=== PATIENT | female | born 1985 | race Caucasian/White ===

== ENCOUNTER 2017-06-05 22:05 | Emergency (ER) | END 2017-06-05 23:50 | disposition left against medical advice (07) | LOC: ER 22:05 | DX: Z53.21 Procedure and treatment not carried out due to patient leaving prior to being seen by health care provider (principal) ==

== ENCOUNTER 2018-05-04 18:45 | Emergency (ER) | payer OTHER ==
[2018-05-04] MEDS ORDERED: HALOPERIDOL LACTATE INJ 5 MG/1 ML VIAL IV ONE (19:53)
[2018-05-04] MEDS ORDERED: NORMAL SALINE 1000 ML 1,000 ML IV ONE (19:54)
--- NOTE | 2018-05-04 19:58 | ER Document Report ---
ED Cardiac - General Chief Complaint: Palpitations Stated Complaint: RAPID HEARTBEAT Time Seen by Provider: 05/04/18 19:13 Notes: Patient is a 33-year-old male with a past medical history of SVT after 4 total ablations in the past for this issue, currently off any anti-arithmetic agents who presents with complaints of intermittent palpitations over the last several weeks. The patient reports that he feels similar to when he has required an ablation in the past. He does note that he does not currently feel he is in SVT. He also reports that he has had chronic intermittent headaches over the past 3-4 weeks and does currently have a global, throbbing, aching headache. Nothing improves or worsens his headache. States that the headache fluctuates regularly. He denies any associated weakness, numbness, fever or confusion. [facility] and is scheduled to see a prevention specialist ideally within the next 1 week. Nothing is necessary new or different regarding his symptoms that prompted a visit to the emergency department today. TRAVEL OUTSIDE OF THE [place] IN LAST 30 DAYS: No - Related Data Allergies/Adverse Reactions: ciprofloxacin [From Cipro] Allergy (Severe, Verified 01/06/18 13:23) Shortness of Breath gadoteridol [From Prohance] Allergy (Severe, Verified 01/06/18 13:23) Shortness of Breath hyoscyamine sulfate [From Levsin] Allergy (Severe, Verified 01/06/18 13:23) Shortness of Breath Iodinated Contrast- Oral and IV Dye Allergy (Severe, Verified 01/06/18 13:23) metoclopramide HCl [From Reglan] Allergy (Severe, Verified 01/06/18 13:23) Shortness of Breath promethazine HCl [From Phenergan] Allergy (Severe, Verified 01/06/18 13:23) Shortness of Breath morphine Allergy (Verified 01/10/18 02:28) Anaphylaxis Penicillins Allergy (Verified 01/06/18 13:23) piperacillin [From Zosyn] Adverse Reaction (Verified 01/06/18 13:23) tazobactam [From Zosyn] Adverse Reaction (Verified 01/06/18 13:23) Past Medical History - General Information source: Patient - Social History Smoking Status: Never Smoker Frequency of alcohol use: None Drug Abuse: None Lives with: Spouse/Significant other Family History: Arthritis, CAD, CVA, DM, Hyperlipidemia, Hypertension, Malignancy, Thyroid Disfunction - Past Medical History Cardiac Medical History: Reports: Hx Coronary Artery Disease - CARDIAC CATH/ LOOP RECORDER/ ABLATION X 2, Hx Heart Attack - X 3 Pulmonary Medical History: Reports: Hx Pneumonia Neurological Medical History: Reports: Hx Seizures - 2012- COMA FOR ONE WEEK- MEDICATION INDUCED Renal/ Medical History: Reports: Hx Kidney Stones - 23 stones. Denies: Hx Peritoneal Dialysis GI Medical History: Reports: Hx Gastritis, Hx Gastroesophageal Reflux Disease, Hx Hiatal Hernia, Hx Endoscopy Musculoskeletal Medical History: Reports Hx Arthritis, Reports Hx Musculoskeletal Deformity, Reports Hx Musculoskeletal Trauma Skin Medical History: Reports Hx Cellulitis Psychiatric Medical History: Reports: Hx Anxiety, Hx Post Traumatic Stress Disorder Past Surgical History: Reports: Hx Abdominal Surgery - hernia repair, Vladimir Fundoplication, partial esophagectomy, Hx Appendectomy, Hx Cardiac Surgery - 2X ablation, Hx Inguinal Hernia - 2, Hx Orthopedic Surgery - R shoulder, Other - Vladimir's fundoplication with esophagectomy. - Immunizations Immunizations up to date: Yes Hx Diphtheria, Pertussis, Tetanus Vaccination: Yes - 09/17/2015 Hx Pneumococcal Vaccination: 05/27/13 Review of Systems - Review of Systems Notes: Constitutional: Negative for fever. HENT: Negative for sore throat. Eyes: Negative for visual changes. Cardiovascular: Negative for chest pain. Positive for palpitations Respiratory: Negative for shortness of breath. Gastrointestinal: Negative for abdominal pain, vomiting or diarrhea. Genitourinary: Negative for dysuria. Musculoskeletal: Negative for back pain. Skin: Negative for rash. Neurological: Positive for headache 10 point ROS negative except as marked above and in HPI. Physical Exam - Vital signs Vitals: Temp Pulse Resp BP Pulse Ox 98.7 F 110 H 20 145/95 H 100 05/04/18 19:02 05/04/18 19:02 05/04/18 19:02 05/04/18 19:02 05/04/18 19:02 Interpretation: Tachycardic - Resolved at the time of my assessment, heart rate currently 85 Notes: PHYSICAL EXAMINATION: GENERAL: Well-appearing, well-nourished and in no acute distress. HEAD: Atraumatic, normocephalic. EYES: Pupils equal round and reactive to light, extraocular movements intact, sclera anicteric, conjunctiva are normal. ENT: nares patent, oropharynx clear without exudates. Moist mucous membranes. NECK: Normal range of motion, supple without lymphadenopathy LUNGS: Breath sounds clear to auscultation bilaterally and equal. No wheezes rales or rhonchi. HEART: Regular rate and rhythm without murmurs ABDOMEN: Soft, nontender, normoactive bowel sounds. No guarding, no rebound. No masses appreciated. EXTREMITIES: Normal range of motion, no pitting or edema. No cyanosis. NEUROLOGICAL: Face symmetric. Tongue protrudes midline. Extraocular motions intact. Pupils are 2 mm and equally reactive. Normal speech, normal gait. 5 out of 5 strength in both the distal and proximal upper and lower extremities bilaterally. Sensation is grossly intact throughout. Finger to nose testing normal. Pronator drift normal. PSYCH: Normal mood, normal affect. SKIN: Warm, Dry, normal turgor, no rashes or lesions noted. Course - Re-evaluation Re-evalutation: 05/04/18 19:57 Patient presents with palpitations but is in no acute distress. Vitals within normal limits at time of arrival. EKG unremarkable with a normal sinus rhythm. Laboratories are unremarkable. Patient denies any chest pain, shortness of breath, or vomiting. At this time based on exam and history do not suspect a new onset arrhythmia, ACS, acute pulmonary embolus, aortic dissection. Patient has been encouraged to follow through on the cardiology referral placed at the [place]. In regards to the patient's headache: Appears to be most consistent with tension versus migrainous type headache. Headache was not maximal in onset, patient has no focal neurologic deficits, no nuchal rigidity, vital signs within normal limits, no papilledema, and patient is overall well in appearance. Based on clinical history and examination I do not suspect an acute subarachnoid hemorrhage, dural venous sinus thrombosis, acute meningitis, or intercranial mass. Given my low clinical suspicion for any acute life- threatening etiology, I do not feel advanced neuro imaging is indicated at this time. Patient is allergic to metoclopramide and Compazine and therefore haloperidol has been elected to terminate headache 05/04/18 21:15 Labs unremarkable. Patient has resolution of headache. Heart rate continues to be within normal limits currently 81 bpm. Blood pressure 113 and 75. No ectopic rhythm. At this time will discharge with return precautions and follow- up recommendations. Verbal discharge instructions given a the bedside and opportunity for questions given. Medication warnings reviewed. Patient is in agreement with this plan and has verbalized understanding of return precautions and the need for primary care follow-up in the next 24-72 hours. - Vital Signs Vital signs: Temp Pulse Resp BP Pulse Ox 98.7 F 110 H 20 145/95 H 100 05/04/18 19:02 05/04/18 19:02 05/04/18 19:02 05/04/18 19:02 05/04/18 19:02 - Laboratory Result Diagrams: 05/04/18 19:45 Laboratory results interpreted by me: 05/04/18 19:45 Carbon Dioxide 33 H Creatinine 1.47 H Est GFR (Non-Af Amer) 56 L Glucose 111 H - EKG Interpretation by Me Additional EKG results interpreted by me: 05/04/18 21:15 Sinus rhythm, rate 108. Movement on EKG. No ST elevations or depressions. Discharge - Discharge Clinical Impression: Recurrent headache, Palpitations Condition: Good Disposition: HOME, SELF-CARE Additional Instructions: Please follow-up with your primary care doctor or a prevention specialist regarding your palpitations. Your EKG and labs are normal today. Return if you develop chest pain, shortness of breath, pass out, or have any other symptoms that are worrisome to you. You have been seen in the Emergency Department (ED) for a headache. As we have discussed, please follow up with your primary care doctor as soon as possible regarding today's ED visit and your headache symptoms. Call your doctor or return to the ED if you have a worsening headache, sudden and severe headache, confusion, slurred speech, facial droop, weakness or numbness in any arm or leg, extreme fatigue, or other symptoms that concern you. Referrals: MAGNOLIA BIRD PA-C [Primary Care Provider] - Follow up as needed
[2018-05-04 20:14] LABS: ANION GAP 10 (5-19); BLOOD UREA NITROGEN 16 mg/dL (7-20); CALCIUM 9.6 mg/dL (8.4-10.2); CARBON DIOXIDE 33 mmol/L (22-30); CHLORIDE 99 mmol/L (98-107); GLUCOSE 111 mg/dL (75-110); POTASSIUM 3.9 mmol/L (3.6-5.0); SODIUM 142.4 mmol/L (137-145)
[2018-05-04 21:41] VITALS: BP 110/74
--- NOTE | 2018-05-04 22:18 | EKG REPORT ---
SEVERITY:- ABNORMAL ECG - SINUS TACHYCARDIA : Confirmed by: Grace Mendoza 04-May-2018 22:17:16
== END 2018-05-04 21:30 | disposition home or self-care (01) ==
LOC: ER 18:45 → MERGE 18:45 → ER 21:30
DX: R00.2 Palpitations (principal); R51 Headache; I25.10 Atherosclerotic heart disease of native coronary artery without angina pectoris; I25.2 Old myocardial infarction; Z87.442 Personal history of urinary calculi; Z88.3 Allergy status to other anti-infective agents; Z88.6 Allergy status to analgesic agent
CPT/HCPCS: 93005; 99285; 96374; 36415; 80048; 93010; J1630; J7030

== ENCOUNTER 2018-05-06 13:42 | Emergency (ER) | payer OTHER ==
[2018-05-06] MEDS ORDERED: KETOROLAC TROMETHAMINE 60 MG/2 ML SDV IM ONE (14:26)
--- NOTE | 2018-05-06 14:26 | ER Document Report ---
ED Medical Screen (RME) - General Chief Complaint: Jaw Pain Stated Complaint: JAW PAIN Time Seen by Provider: 05/06/18 14:25 TRAVEL OUTSIDE OF THE [place] IN LAST 30 DAYS: No - HPI Notes: Patient is a 33-year-old male that presents to the emergency department for chief complaint of locked jaw. Patient states he is unable to open his jaw. His symptoms occur just before arrival. He has had similar symptoms in the past after taking Reglan. He states he took Prilosec yesterday but has no new medications. ROS: GENERAL: Denies fever of chills ENT: Locked jaw CV: Denies chest pain PHYSICAL EXAMINATION: GENERAL: Well-appearing, well-nourished and in no acute distress. HEAD: Atraumatic, normocephalic. EYES: Pupils equal round extraocular movements intact, conjunctiva are normal. ENT: Nares patent NECK: Normal range of motion LUNGS: No respiratory distress Musculoskeletal: Normal range of motion NEUROLOGICAL: Normal speech, normal gait. PSYCH: Normal mood, normal affect. MDM: Patient seen and examined for rapid initial assessment. Vital signs reviewed. A comprehensive ED assessment and evaluation of the patient, analysis of test results and completion of the medical decision making process will be conducted by additional ED providers. - Related Data Allergies/Adverse Reactions: ciprofloxacin [From Cipro] Allergy (Verified 05/06/18 13:48) metoclopramide [From Reglan] Allergy (Verified 05/06/18 13:48) morphine Allergy (Verified 05/06/18 13:48) omeprazole Allergy (Verified 05/06/18 13:59) promethazine [From Phenergan] Allergy (Verified 05/06/18 13:48) Past Medical History Renal/ Medical History: Denies: Hx Peritoneal Dialysis Physical Exam - Vital signs Vitals: Temp Pulse Resp BP Pulse Ox 97.8 F 86 20 140/91 H 96 05/06/18 13:47 05/06/18 13:47 05/06/18 13:47 05/06/18 13:47 05/06/18 13:47 Course - Vital Signs Vital signs: Temp Pulse Resp BP Pulse Ox 97.8 F 86 20 140/91 H 96 05/06/18 13:47 05/06/18 13:47 05/06/18 13:47 05/06/18 13:47 05/06/18 13:47
[2018-05-06] MEDS ORDERED: DIPHENHYDRAMINE HCL 50 MG/ML VIAL IV ONE ×3 (15:04→17:37)
[2018-05-06] MEDS ORDERED: FENTANYL CITRATE INJ/PF 100 MCG/2 ML AMPUL IV ONE (15:04)
--- NOTE | 2018-05-06 15:04 | ER Document Report ---
ED General - General Mode of Arrival: Ambulatory Information source: Patient TRAVEL OUTSIDE OF THE [place] IN LAST 30 DAYS: No - General Chief Complaint: Jaw Pain Stated Complaint: JAW PAIN Time Seen by Provider: 05/06/18 14:25 Notes: 33 year old male that presents to the emergency department today with complaints of jaw spasm. Patient states he has had this once before when taking Reglan. Patient states he has had no new medications except for taking Prilosec yesterday. Patient does mention that x1.5 days ago he was seen here and was given 3mg of IV Haldol for a headache. Patient has had a similar reaction when taking reglan in the past. Patient's jaw is clenched quite tight and he is biting down hard. Patient states he thinks he may have broken a tooth. (JAZMINE SANTAMARIA) Patient appears to be having a dystonic reaction with spasm of his jaws. He is quite uncomfortable. He was given Benadryl IV and a small dose of fentanyl. The medications promptly allowed his jaw muscles to relax. On further investigation, I learned that he was here with possible SVT type symptoms and chronic off and on headache the night before last and received 3 mg of Haldol IV. He does have a history of similar response to Reglan. Once this was discovered, he was given additional Benadryl and a dose of Cogentin, as he was reporting that it felt like the jaw tightening was returning. (CODI MAYER) - Related Data Allergies/Adverse Reactions: gadoteridol [From Prohance] Allergy (Severe, Verified 01/06/18 13:23) Shortness of Breath hyoscyamine sulfate [From Levsin] Allergy (Severe, Verified 01/06/18 13:23) Shortness of Breath Iodinated Contrast- Oral and IV Dye Allergy (Severe, Verified 01/06/18 13:23) metoclopramide HCl [From Reglan] Allergy (Severe, Verified 01/06/18 13:23) Shortness of Breath promethazine HCl [From Phenergan] Allergy (Severe, Verified 01/06/18 13:23) Shortness of Breath ciprofloxacin [From Cipro] Allergy (Verified 05/06/18 13:48) metoclopramide [From Reglan] Allergy (Verified 05/06/18 13:48) morphine Allergy (Verified 05/06/18 13:48) omeprazole Allergy (Verified 05/06/18 13:59) Penicillins Allergy (Verified 01/06/18 13:23) promethazine [From Phenergan] Allergy (Verified 05/06/18 13:48) piperacillin [From Zosyn] Adverse Reaction (Verified 01/06/18 13:23) tazobactam [From Zosyn] Adverse Reaction (Verified 01/06/18 13:23) Past Medical History - General Information source: Patient, [facility] Records - Social History Smoking Status: Unknown if Ever Smoked Frequency of alcohol use: None Drug Abuse: None Lives with: Family Family History: Reviewed & Not Pertinent Patient has suicidal ideation: No Patient has homicidal ideation: No Review of Systems - Review of Systems Constitutional: No symptoms reported EENT: See HPI, Other - jaw muscle spasm Cardiovascular: No symptoms reported Respiratory: No symptoms reported Gastrointestinal: No symptoms reported Genitourinary: No symptoms reported Male Genitourinary: No symptoms reported Musculoskeletal: No symptoms reported Skin: No symptoms reported Hematologic/Lymphatic: No symptoms reported Neurological/Psychological: No symptoms reported -: Yes All other systems reviewed and negative Physical Exam - Vital signs Vitals: Temp Pulse Resp BP Pulse Ox 97.8 F 86 20 140/91 H 96 05/06/18 13:47 05/06/18 13:47 05/06/18 13:47 05/06/18 13:47 05/06/18 13:47 - Notes Notes: Physical Exam: General: Alert, appears to be in a significant amount of pain. HEENT: Normocephalic. Atraumatic. PERRL. Extraocular movements intact. Oropharynx clear. Jaw clinched shut, biting down. TMJs appears to be properly aligned. Face is contorted. Extremely poor dentition throughout. Left upper lateral incisor fractured. Neck: Supple. Non-tender. Respiratory: No respiratory distress. Clear and equal breath sounds bilaterally. Cardiovascular: Regular rate and rhythm. Abdominal: Normal Inspection. Non-tender. No distension. Normal Bowel Sounds. Back: Non-tender. No deformity or step off. Extremities: Moves all four extremities. Upper extremities: Normal inspection. Normal ROM. Lower extremities: Normal inspection. No edema. Normal ROM. Neurological: Normal cognition. AAOx4. Normal speech. Psychological: Normal affect. Normal Mood. Skin: Warm. Dry. Normal color. (JAZMINE SANTAMARIA) - Vital Signs Vital signs: Temp Pulse Resp BP Pulse Ox 97.8 F 86 20 140/91 H 96 05/06/18 13:47 05/06/18 13:47 05/06/18 13:47 05/06/18 13:47 05/06/18 13:47 Discharge - Discharge Clinical Impression: Dystonic drug reaction Condition: Stable Disposition: HOME, SELF-CARE Additional Instructions: Dystonic Reaction to Medication: Your symptoms were caused by the effects of medication on the "muscle control" areas of the brain. This results in uncontrollable movements and muscle spasms. The symptoms usually start with the mouth, jaw, and tongue, but may involve any area of the body. Anti-nausea medications and psychiatric medications (such as Compazine, Reglan, Haldol) can cause this side effect. The usual treatment is diphenhydramine (Benadryl). Mild cases may require only oral medication. However, intravenous medication is most rapidly effective and is usually necessary for severe reactions. It's usually a good idea to take diphenhydramine by mouth for a day or two after the emergency treatment. Your doctor will discuss this with you. It's best to avoid the medicine that caused this reaction in the future. But if it's important that you continue this medicine, you can do so, while using Benadryl on a regular basis to suppress the dystonic reaction. This is not a true allergy. Return if muscle pains or spasms, difficulty breathing or swallowing, or uncontrollable motions occur again. Your symptoms today were most likely due to the Haldol you received almost 2 days ago. You should take Benadryl for any jaw muscle spasming that you noticed. You will be put on a prescription called Cindy to help prevent you from having more of those spasm attacks. You should take this for the next 3-4 days. Take the pain medication is dispensed this evening if needed. Take Motrin for the pain from your broken tooth. Follow-up with a local medical doctor if not improving. Follow-up with a local dentist for your broken tooth. RETURN TO THE EMERGENCY ROOM IF ANY NEW OR WORSENING SYMPTOMS. Prescriptions: Benztropine Mesylate [Cogentin 1 mg Tablet] 1 tab PO DAILY #4 tab Scribe Attestation: 05/06/18 16:21 I personally performed the services described in the documentation, reviewed and edited the documentation which was dictated to the scribe in my presence, and it accurately records my words and actions. (CODI MAYER) Scribe Documentation - Scribe Written by Jose:: Jose Hahn, 05/06/2018 [id number] acting as scribe for :: [place]
[2018-05-06] MEDS ORDERED: BENZTROPINE MESYLATE 1 MG TABLET PO ONE (15:55)
[2018-05-06] MEDS ORDERED: HYDROCODONE/ACETAMINOPHEN 5-325 MG (6 TAB/ER DISP) PO PRN (17:37)
[2018-05-06 18:08] VITALS: BP 130/75
== END 2018-05-06 18:08 | disposition home or self-care (01) ==
LOC: ER 13:42
DX: G24.09 Other drug induced dystonia (principal); T50.905A Adverse effect of unspecified drugs, medicaments and biological substances, initial encounter; S02.5XXA Fracture of tooth (traumatic), initial encounter for closed fracture; X58.XXXA Exposure to other specified factors, initial encounter; Z88.8 Allergy status to other drugs, medicaments and biological substances; Z91.041 Radiographic dye allergy status; Z88.1 Allergy status to other antibiotic agents; Z88.5 Allergy status to narcotic agent; Z88.0 Allergy status to penicillin
CPT/HCPCS: 96376; 99283; 96372; 96374; 96375; J1200; J1885; J3010

== ENCOUNTER 2018-07-09 16:20 | Emergency (ER) | payer OTHER ==
[2018-07-09 16:35] VITALS: BP 116/75
--- NOTE | 2018-07-09 17:04 | ER Document Report ---
ED Flu Like - General Chief Complaint: Flu Symptoms Stated Complaint: FLU LIKE SYMPTOMS Time Seen by Provider: 07/09/18 16:45 [facility] [[facility]] - Follow up as needed Mode of Arrival: Ambulatory Information source: Patient Notes: 33-year-old male presents to ED for cough cold congestion since last night. He did have a temperature of 99.9 in the emergency room. O2 sat is 96-100% pulse was 116 in the pit area but it is 102 in the emergency room. Blood pressure was 115/72 when I examined him. Patient is alert oriented respirations regular and unlabored speaking in full sentences walks with a even steady gait. She is nontoxic in appearance. TRAVEL OUTSIDE OF THE [place] IN LAST 30 DAYS: No - HPI Onset: Yesterday Timing/Duration: Better Quality of pain: Achy Severity: Moderate Pain Level: 3 Associated symptoms: Body/muscle aches, Nonproductive cough, Fever, Rhinnorhea, Sinus pain/drainage Similar symptoms previously: Yes Recently seen / treated by doctor: No - Related Data Allergies/Adverse Reactions: gadoteridol [From Prohance] Allergy (Severe, Verified 07/09/18 16:22) Shortness of Breath hyoscyamine sulfate [From Levsin] Allergy (Severe, Verified 07/09/18 16:22) Shortness of Breath Iodinated Contrast- Oral and IV Dye Allergy (Severe, Verified 07/09/18 16:22) metoclopramide HCl [From Reglan] Allergy (Severe, Verified 07/09/18 16:22) Shortness of Breath promethazine HCl [From Phenergan] Allergy (Severe, Verified 07/09/18 16:22) Shortness of Breath ciprofloxacin [From Cipro] Allergy (Verified 07/09/18 16:22) metoclopramide [From Reglan] Allergy (Verified 07/09/18 16:22) morphine Allergy (Verified 07/09/18 16:22) omeprazole Allergy (Verified 07/09/18 16:22) Penicillins Allergy (Verified 07/09/18 16:22) promethazine [From Phenergan] Allergy (Verified 07/09/18 16:22) piperacillin [From Zosyn] Adverse Reaction (Verified 07/09/18 16:22) tazobactam [From Zosyn] Adverse Reaction (Verified 07/09/18 16:22) Past Medical History - General Information source: Patient - Social History Smoking Status: Never Smoker Chew tobacco use (# tins/day): Yes - And a day Frequency of alcohol use: Occasional Drug Abuse: None Occupation: [employer] Lives with: Family Family History: Arthritis, Malignancy, CAD, CVA, DM, Hyperlipidemia, Hypertension, Reviewed & Not Pertinent, Thyroid Disfunction Patient has suicidal ideation: No Patient has homicidal ideation: No - Past Medical History Cardiac Medical History: Reports: Hx Coronary Artery Disease - CARDIAC CATH/ LOOP RECORDER/ ABLATION X 2, Hx Heart Attack - X 3, Other - SVT Pulmonary Medical History: Reports: Hx Pneumonia EENT Medical History: Reports: None Neurological Medical History: Reports: Hx Seizures - [facility] 2012- COMA FOR ONE WEEK- MEDICATION INDUCED Endocrine Medical History: Reports: None Renal/ Medical History: Reports: Hx Kidney Stones - 23 stones Malignancy Medical History: Reports None GI Medical History: Reports: Hx Gastritis, Hx Gastroesophageal Reflux Disease, Hx Hiatal Hernia - REPAIR, Hx Endoscopy Musculoskeletal Medical History: Reports Hx Arthritis, Reports Hx Musculoskeletal Deformity, Reports Hx Musculoskeletal Trauma Skin Medical History: Reports Hx Cellulitis Psychiatric Medical History: Reports: Hx Anxiety, Hx Post Traumatic Stress Disorder Traumatic Medical History: Reports: None Infectious Medical History: Reports: None Past Surgical History: Reports: Hx Abdominal Surgery - hernia repair, Vladimir Fundoplication, partial esophagectomy, Hx Appendectomy, Hx Cardiac Surgery - 2X ablation, Hx Inguinal Hernia - 2, Hx Orthopedic Surgery - R shoulder, Other - Vladimir's fundoplication with esophagectomy. - Immunizations Immunizations up to date: Yes Hx Diphtheria, Pertussis, Tetanus Vaccination: Yes - 09/17/2015 Hx Pneumococcal Vaccination: 05/27/13 Review of Systems - Review of Systems Constitutional: Fever, Recent illness EENT: Nose discharge, Sinus pressure, Sinus discharge Cardiovascular: No symptoms reported Respiratory: Cough Gastrointestinal: No symptoms reported Genitourinary: No symptoms reported Male Genitourinary: No symptoms reported Musculoskeletal: No symptoms reported Skin: No symptoms reported Hematologic/Lymphatic: No symptoms reported Neurological/Psychological: No symptoms reported -: Yes All other systems reviewed and negative Physical Exam - Vital signs Vitals: Temp Pulse Resp BP Pulse Ox 99.9 F 116 H 16 116/75 96 07/09/18 16:34 07/09/18 16:34 07/09/18 16:34 07/09/18 16:34 07/09/18 16:34 Interpretation: Normal - General General appearance: Appears well, Alert - HEENT Head: Normocephalic, Atraumatic Eyes: Normal Pupils: PERRL Ears: Normal External canal: Normal Tympanic membrane: Normal Sinus: Normal Nasal: Purulent discharge, Swelling Mouth/Lips: Normal Mucous membranes: Normal Pharynx: Erythema, Post nasal drainage. No: Exudate, Tonsillar hypertrophy Neck: Normal - Respiratory Respiratory status: No respiratory distress Chest status: Nontender Breath sounds: Normal Chest palpation: Normal - Cardiovascular Rhythm: Regular Heart sounds: Normal auscultation Murmur: No - Abdominal Inspection: Normal Distension: No distension Bowel sounds: Normal Tenderness: Nontender Organomegaly: No organomegaly - Back Back: Normal, Nontender - Extremities General upper extremity: Normal inspection, Nontender, Normal color, Normal ROM, Normal temperature General lower extremity: Normal inspection, Nontender, Normal color, Normal ROM, Normal temperature, Normal weight bearing. No: Susan's sign - Neurological Neuro grossly intact: Yes Cognition: Normal Orientation: AAOx4 [place] Coma Scale Eye Opening: Spontaneous Milady Coma Scale Verbal: Oriented [place] Coma Scale Motor: Obeys Commands Mil[place] Coma Scale Total: 15 Speech: Normal Motor strength normal: LUE, RUE, LLE, RLE Sensory: Normal - Psychological Associated symptoms: Normal affect, Normal mood - Skin Skin Temperature: Warm Skin Moisture: Dry Skin Color: Normal Course - Re-evaluation Re-evalutation: 07/09/18 17:45 O2 sat 100% and pulse is 100 at this time. Chest xray is negative. After performing a Medical Screening Examination, I estimate there is LOW risk for ACUTE CORONARY SYNDROME, RESPIRATORY FAILURE, SEPSIS OR MENINGITIS, thus I consider the discharge disposition reasonable. I have reevaluated this patient multiple times and no significant life threatening changes are noted. The patient and I have discussed the diagnosis and risks, and we agree with discharging home with close follow-up. We also discussed returning to the Emergency Department immediately if new or worsening symptoms occur. We have discussed the symptoms which are most concerning (e.g., changing or worsening pain, trouble swallowing or breathing, neck stiffness, fever) that necessitate immediate return. - Vital Signs Vital signs: Temp Pulse Resp BP Pulse Ox 99.9 F 100 16 116/75 100 07/09/18 16:34 07/09/18 17:45 07/09/18 16:34 07/09/18 16:34 07/09/18 17:45 - Diagnostic Test Radiology reviewed: Image reviewed, Reports reviewed Discharge - Discharge Clinical Impression: Viral respiratory illness Condition: Stable Disposition: HOME, SELF-CARE Additional Instructions: UPPER RESPIRATORY ILLNESS: You have a viral infection of the respiratory passages -- a "cold." This common infection causes nasal congestion, drainage, and often sore throat and cough. It is highly contagious. The disease usually lasts about 10 to 14 days. There is no "cure" for the viral infection -- it must run its course. If there is a complication, such as bacterial infection in the nose, sinuses, middle ear, or bronchial tubes, antibiotics may be required. The antibiotics won't affect the virus. Drink plenty of fluids. A humidifier may help. An expectorant medication or decongestant may make you more comfortable. Use acetaminophen or ibuprofen for fever or aches. See the doctor if fever persists over two days, if there is any significant worsening of your symptoms, or if you simply fail to improve as expected. USE OF ACETAMINOPHEN (Tylenol): Acetaminophen may be taken for pain relief or fever control. It's much safer than aspirin, offering a wider range of "safe" dosages. It is safe during . Some brand names are Tylenol, Panadol, Datril, Anacin 3, Tempra, and Liquiprin. Acetaminophen can be repeated every four hours. The following are maximum recommended dosages: >89 pounds or adults 650 mg to 900 mg Acetaminophen can be repeated every four hours. Maximum dose not to exceed 4000 mg a day. Dipping tobacco can affect your heart so please try to reduce the amount your dipping into you can get down to none.. Increase your p.o. intake and follow-up with your primary doctor for your cough cold congestion symptoms. FOLLOW-UP CARE: If you have been referred to a physician for follow-up care, call the physicians office for an appointment as you were instructed or within the next two days. If you experience worsening or a significant change in your symptoms, notify the physician immediately or return to the Emergency Department at any time for re-evaluation. Call your [place] primary doctor tomorrow for a follow-up appointment. [facility]errals: [facility] [Primary [facility]] - Follow up as needed
--- NOTE | 2018-07-09 17:22 | RADIOLOGY REPORT (SQ) ---
EXAM DESCRIPTION: CHEST 2 VIEWS COMPLETED DATE/TIME: 07/09/2018 5:06 pm REASON FOR STUDY: cough congestion fever COMPARISON: 06/26/2016 EXAM PARAMETERS: NUMBER OF VIEWS: two views TECHNIQUE: Digital Frontal and Lateral radiographic views of the chest acquired. RADIATION DOSE: NA LIMITATIONS: none FINDINGS: LUNGS AND PLEURA: No opacities, masses or pneumothorax. No pleural effusion. MEDIASTINUM AND HILAR STRUCTURES: No masses or contour abnormalities. HEART AND VASCULAR STRUCTURES: Heart normal size. No evidence for failure. BONES: No acute findings. HARDWARE: None in the chest. OTHER: No other significant finding. IMPRESSION: NO ACUTE RADIOGRAPHIC FINDING IN THE CHEST. TECHNICAL DOCUMENTATION: JOB ID: [id number] [email or web address]- All Rights Reserved Reading location - IP/workstation name: [email or web address]
== END 2018-07-09 17:52 | disposition home or self-care (01) ==
LOC: ER 16:20
DX: J06.9 Acute upper respiratory infection, unspecified (principal); R05 Cough; R09.81 Nasal congestion; M79.10 Myalgia, unspecified site; F17.200 Nicotine dependence, unspecified, uncomplicated; I25.10 Atherosclerotic heart disease of native coronary artery without angina pectoris; I25.2 Old myocardial infarction
CPT/HCPCS: 71046; 99283

== ENCOUNTER 2018-08-15 13:18 | Emergency (ER) | payer OTHER ==
[2018-08-15 13:30] VITALS: BP 127/84
--- NOTE | 2018-08-15 13:33 | ER Document Report ---
ED Extremity Problem, Lower - General Chief Complaint: Knee Pain Stated Complaint: SWELLING BEHIND RIGHT KNEE, PAIN Time Seen by Provider: 08/15/18 13:33 Primary Care Provider: BELLO,REJI [Primary Care Provider] - Follow up as needed Mode of Arrival: Ambulatory Information source: Patient Notes: 33-year-old male presented to ED for complaint of right leg pain. He states that some bruising and swelling behind the leg. He states he has a torn meniscus in the right knee that he had recently had surgery and has a follow-up appointment on on 08/29/2018. He does not have any pedal edema or any swelling to the right leg. He does have a bruise behind the right knee. Patient is alert oriented respirations regular and unlabored speaking in full sentences. His Wells criteria does not warrant a Doppler but a x-ray has been ordered. TRAVEL OUTSIDE OF THE [place] IN LAST 30 DAYS: No - HPI Patient complains to provider of: Pain, Swelling Location: Knee - right Occurred: Yesterday Onset/Duration: Gradual Quality of pain: Burning Severity: Moderate Pain Level: 4 Context: denies: Barefoot, Burn, Crush, Direct blow, Fell, Laceration, Prolonged pressure on ext, Recent immobilization, Recent surgery, Recent travel, Twisted, Wearing shoes Recent injury: No Associated symptoms: Painful ambulation Exacerbated by: Movement, Walking Relieved by: Nothing - Related Data Allergies/Adverse Reactions: gadoteridol [From Prohance] Allergy (Severe, Verified 08/15/18 13:22) Shortness of Breath hyoscyamine sulfate [From Levsin] Allergy (Severe, Verified 08/15/18 13:22) Shortness of Breath Iodinated Contrast- Oral and IV Dye Allergy (Severe, Verified 08/15/18 13:22) metoclopramide HCl [From Reglan] Allergy (Severe, Verified 08/15/18 13:22) Shortness of Breath promethazine HCl [From Phenergan] Allergy (Severe, Verified 08/15/18 13:22) Shortness of Breath ciprofloxacin [From Cipro] Allergy (Verified 08/15/18 13:22) metoclopramide [From Reglan] Allergy (Verified 08/15/18 13:22) morphine Allergy (Verified 08/15/18 13:22) omeprazole Allergy (Verified 08/15/18 13:22) Penicillins Allergy (Verified 08/15/18 13:22) promethazine [From Phenergan] Allergy (Verified 08/15/18 13:22) piperacillin [From Zosyn] Adverse Reaction (Verified 08/15/18 13:22) tazobactam [From Zosyn] Adverse Reaction (Verified 08/15/18 13:22) Past Medical History - General Information source: Patient - Social History Smoking Status: Never Smoker Chew tobacco use (# tins/day): Yes Frequency of alcohol use: Occasional Drug Abuse: None Occupation: [employer] Lives with: Family Family History: Arthritis, Malignancy, CAD, CVA, DM, Hyperlipidemia, Hypertension, Reviewed & Not Pertinent, Thyroid Disfunction Patient has suicidal ideation: No Patient has homicidal ideation: No - Past Medical History Cardiac Medical History: Reports: Hx Coronary Artery Disease - CARDIAC CATH/ LOOP RECORDER/ ABLATION X 2, Hx Heart Attack - X 3 Pulmonary Medical History: Reports: Hx Pneumonia EENT Medical History: Reports: None Neurological Medical History: Reports: Hx Seizures - [facility]2012- COMA FOR ONE WEEK- MEDICATION INDUCED Endocrine Medical History: Reports: None Renal/ Medical History: Reports: Hx Kidney Stones - 23 stones Malignancy Medical History: Reports None GI Medical History: Reports: Hx Gastritis, Hx Gastroesophageal Reflux Disease, Hx Hiatal Hernia - REPAIR, Hx Endoscopy Musculoskeletal Medical History: Reports Hx Arthritis, Reports Hx Mus culoskeletal Deformity, Reports Hx Musculoskeletal Trauma Skin Medical History: Reports Hx Cellulitis Psychiatric Medical History: Reports: Hx Anxiety, Hx Post Traumatic Stress Disorder Traumatic Medical History: Reports: None Infectious Medical History: Reports: None Past Surgical History: Reports: Hx Abdominal Surgery - hernia repair, Vladimir Fundoplication, partial esophagectomy, Hx Appendectomy, Hx Cardiac Surgery - 2X ablation, Hx Inguinal Hernia - 2, Hx Orthopedic Surgery - R shoulder, Other - Vladimir's fundoplication with esophagectomy. - Immunizations Immunizations up to date: Yes Hx Diphtheria, Pertussis, Tetanus Vaccination: Yes - 09/17/2015 Hx Pneumococcal Vaccination: 05/27/13 Review of Systems - Review of Systems Constitutional: No symptoms reported EENT: No symptoms reported Cardiovascular: No symptoms reported Respiratory: No symptoms reported Gastrointestinal: No symptoms reported Genitourinary: No symptoms reported Male Genitourinary: No symptoms reported Musculoskeletal: Joint pain - Right knee pain Skin: No symptoms reported Hematologic/Lymphatic: No symptoms reported Neurological/Psychological: No symptoms reported -: Yes All other systems reviewed and negative Physical Exam - Vital signs Vitals: Temp Pulse Resp BP Pulse Ox 98.0 F 79 16 127/84 H 100 08/15/18 13:25 08/15/18 13:25 08/15/18 13:25 08/15/18 13:25 08/15/18 13:25 Interpretation: Normal - General General appearance: Appears well, Alert - HEENT Head: Normocephalic, Atraumatic Eyes: Normal Pupils: PERRL - Respiratory Respiratory status: No respiratory distress Chest status: Nontender Breath sounds: Normal Chest palpation: Normal - Cardiovascular Rhythm: Regular Heart sounds: Normal auscultation Murmur: No - Abdominal Inspection: Normal Distension: No distension Bowel sounds: Normal Tenderness: Nontender Organomegaly: No organomegaly - Back Back: Normal, Nontender - Extremities General upper extremity: Normal inspection, Nontender, Normal color, Normal ROM, Normal temperature General lower extremity: Normal inspection, Normal color, Normal ROM, Normal temperature. No: Normal weight bearing, Susan's sign Knee: Ecchymosis - posterior medial knee - Neurological Neuro grossly intact: Yes Cognition: Normal Orientation: AAOx4 [place] Coma Scale Eye Opening: Spontaneous [place] Coma Scale Verbal: Oriented [place] Coma Scale Motor: Obeys Commands [place] Coma Scale Total: 15 Speech: Normal Motor strength normal: LUE, RUE, LLE, RLE Sensory: Normal - Psychological Associated symptoms: Normal affect, Normal mood - Skin Skin Temperature: Warm Skin Moisture: Dry Skin Color: Normal Course - Vital Signs Vital signs: Temp Pulse Resp BP Pulse Ox 98.0 F 79 16 127/84 H 100 08/15/18 13:25 08/15/18 13:25 08/15/18 13:25 08/15/18 13:25 08/15/18 13:25 - Diagnostic Test Radiology reviewed: Image reviewed, Reports reviewed Discharge - Discharge Clinical Impression: Right knee pain Qualifiers: Chronicity: acute Qualified Code(s): M25.561 - Pain in right knee Condition: Stable Disposition: HOME, SELF-CARE Additional Instructions: He was seen today for right knee pain. Your x-ray is negative for any acute bony abnormalities. You have not fallen or injured your knee. 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 ICE & ELEVATION: Apply ice packs frequently against the painful area. Many different schedules are recommended, such as "20 minutes on, 20 minutes off" or "one hour ice, two hours rest." If you need to work, you may need to go longer between ice treatments. You should plan to have the area ice packed AT LEAST one-fourth of the time. The ice should be applied over the wrap, tape, or splint, or over a layer of cloth -- not directly against the skin. Some ice bags have a built-in cloth and can be put directly on the skin. Your injured part should be elevated as much as possible over the next 48 hours. Try to keep the injury above the level of the heart. Avoid use of the injured area. Elevation and rest will decrease the swelling. USE OF [id number] IBUPROFEN: Ibuprofen (Advil, Nuprin, Medipren, Motrin IB) is a medication for fever and pain control. In addition, it has anti- inflammatory effects which may be beneficial, especially in the treatment of injuries. It's best to take ibuprofen with food. Persons with ulcer disease or allergy to aspirin should notify their physician of this before taking ibuprofen. Ibuprofen can be given every four to six hours, for a total of four doses daily. Age Pain or fever dose Antiinflammatory dose 6-8 yr 200 mg (1 tab) 200 mg (1 tab) 9-11 yr 200 mg (1 tab) 200-400 mg (1-2 tab) 11-14 yr 200-400 mg (1-2 tab) 400 mg (2 tab) 15-adult 400 mg (2 tab) 600 mg (3 tab) FOLLOW-UP CARE: If you have been referred to a physician for follow-up care, call the physicians office for an appointment as you were instructed or within the next two days. If you experience worsening or a significant change in your symptoms, notify the physician immediately or return to the Emergency Department at any time for re-evaluation. Forms: Elevated Blood Pressure, Return to Work [facility]errals: [facility] [[facility]] - Follow up as needed
[2018-08-15] MEDS ORDERED: IBUPROFEN 600 MG TABLET PO ONE (13:44)
--- NOTE | 2018-08-15 14:12 | RADIOLOGY REPORT (SQ) ---
EXAM DESCRIPTION: KNEE RIGHT 4 VIEWS COMPLETED DATE/TIME: 08/15/2018 2:05 pm REASON FOR STUDY: pain and swelling since yesterday COMPARISON: None. NUMBER OF VIEWS: Four views. TECHNIQUE: AP, lateral, and both oblique radiographic images acquired of the right knee. LIMITATIONS: None. FINDINGS: MINERALIZATION: Normal. BONES: No acute fracture or dislocation. No worrisome bone lesions. JOINT: No effusion. SOFT TISSUES: No soft tissue swelling. No radio-opaque foreign body. OTHER: No other significant finding. IMPRESSION: NEGATIVE STUDY OF THE RIGHT KNEE. NO RADIOGRAPHIC EVIDENCE OF ACUTE INJURY. TECHNICAL DOCUMENTATION: JOB ID: [id number] [employer]- All Rights Reserved Reading location - IP/workstation name: [email or web address]
== END 2018-08-15 14:28 | disposition home or self-care (01) ==
LOC: ER 13:18
DX: S80.11XA Contusion of right lower leg, initial encounter (principal); M25.561 Pain in right knee; M79.604 Pain in right leg; M79.89 Other specified soft tissue disorders; X58.XXXA Exposure to other specified factors, initial encounter; I25.10 Atherosclerotic heart disease of native coronary artery without angina pectoris
CPT/HCPCS: 99283

== ENCOUNTER 2018-08-31 21:48 | Emergency (ER) | payer OTHER ==
[2018-08-31 21:57] VITALS: BP 124/95
--- NOTE | 2018-08-31 23:54 | RADIOLOGY REPORT (SQ) ---
EXAM DESCRIPTION: XR SHOULDER 2 OR MORE VIEWS COMPLETED DATE/TME: 08/31/2018 00:00 CLINICAL HISTORY: dog pulled shoulder out COMPARISON: None FINDINGS: Three x-ray views of the right shoulder were submitted. There is no acute fracture or dislocation. Bone mineralization is within normal limits. There is no radiopaque foreign body material. [place] screw noted at the right humeral head. IMPRESSION: No acute fracture or dislocation.
[2018-09-01] MEDS ORDERED: TRAMADOL HCL 50 MG TABLET PO ONE (00:16)
[2018-09-01] MEDS ORDERED: IBUPROFEN 800 MG TABLET PO ONE (00:17)
--- NOTE | 2018-09-01 00:19 | ER Document Report ---
HPI - HPI Patient complains to provider of: Right shoulder and elbow pain Time Seen by Provider: 09/01/18 00:16 Onset: This evening Onset/Duration: Sudden Quality of pain: Sharp Pain Level: 5 Context: Patient states that his dogs were going to get into a fight and he grabbed his boxer and attempted to prevent the boxer from attack any other dog. Patient states that he felt a sharp pain in his right shoulder and elbow. Patient does report previous history of rotator cuff repair on his right shoulder. Patient does take tramadol regularly and did take some tonight. Associated Symptoms: Other - Right shoulder, right elbow pain Exacerbated by: Movement Relieved by: Denies Similar symptoms previously: Yes Recently seen / treated by doctor: No - ROS ROS below otherwise negative: Yes Systems Reviewed and Negative: Yes All other systems reviewed and negative - CONSTITUTIONAL Constitutional: DENIES: Fever, Chills - NEURO Neurology: DENIES: Headache, Weakness - GASTROINTESTINAL Gastrointestinal: DENIES: Nausea - MUSCULOSKELETAL Musculoskeletal: REPORTS: Extremity pain. DENIES: Back Pain, Neck Pain, Swelling - DERM Skin Color: Normal Skin Problems: None Past Medical History - General Information source: Patient - Social History Smoking Status: Never Smoker Frequency of alcohol use: Occasional Drug Abuse: None Lives with: Family Family History: Arthritis, Malignancy, CAD, CVA, DM, Hyperlipidemia, Hypertension, Reviewed & Not Pertinent, Thyroid Disfunction Patient has suicidal ideation: No Patient has homicidal ideation: No - Past Medical History Cardiac Medical History: Reports: Hx Coronary Artery Disease - CARDIAC CATH/ LOOP RECORDER/ ABLATION X 2, Hx Heart Attack - X 3 Pulmonary Medical History: Reports: Hx Pneumonia Neurological Medical History: Reports: Hx Seizures - 2012- COMA FOR ONE WEEK- MEDICATION INDUCED Renal/ Medical History: Reports: Hx Kidney Stones - 23 stones. Denies: Hx Peritoneal Dialysis GI Medical History: Reports: Hx Gastritis, Hx Gastroesophageal Reflux Disease, Hx Hiatal Hernia - REPAIR, Hx Endoscopy Musculoskeletal Medical History: Reports Hx Arthritis, Reports Hx Musculoskeletal Deformity, Reports Hx Musculoskeletal Trauma Skin Medical History: Reports Hx Cellulitis Psychiatric Medical History: Reports: Hx Anxiety, Hx Post Traumatic Stress Disorder Past Surgical History: Reports: Hx Abdominal Surgery - hernia repair, Vladimir Fundoplication, partial esophagectomy, Hx Appendectomy, Hx Cardiac Surgery - 2X ablation, Hx Inguinal Hernia - 2, Hx Orthopedic Surgery - R shoulder, Other - Vladimir's fundoplication with esophagectomy. - Immunizations Immunizations up to date: Yes Hx Diphtheria, Pertussis, Tetanus Vaccination: Yes - 09/17/2015 Hx Pneumococcal Vaccination: 05/27/13 Vertical Provider Document - CONSTITUTIONAL Agree With Documented VS: Yes Exam Limitations: No Limitations General Appearance: WD/WN, No Apparent Distress - INFECTION CONTROL TRAVEL OUTSIDE OF THE [place] IN LAST 30 DAYS: No - HEENT HEENT: Atraumatic, Normocephalic - NECK Neck: Normal Inspection, Supple - RESPIRATORY Respiratory: Breath Sounds Normal, No Respiratory Distress - CARDIOVASCULAR Cardiovascular: Regular Rate, Regular Rhythm Pulses: Normal: Radial - BACK Back: Abnormal Inspection - Right trapezius muscle tenderness - MUSCULOSKELETAL/EXTREMETIES Musculoskeletal/Extremeties: MAEW, Tender - Right shoulder joint tenderness over AC joint. Tenderness increases with extension and abduction. With distraction patient is able to extend and abduct without guarding. Patient otherwise with a very exaggerated pain response with minimal palpation., No Edema Notes: Right elbow tenderness over lateral epicondyle into the antecubital area. No deformity, no dislocation, no edema. Patient able to move elbow through full range of motion. - NEURO Level of Consciousness: Awake, Alert, Appropriate Motor/Sensory: No Motor Deficit - DERM Integumentary: Warm, Dry Course - Re-evaluation Re-evalutation: 09/01/18 01:26 Patient without any acute fracture dislocation noted on x-ray. Patient encouraged to follow-up with his orthopedic surgeon for recheck. Patient does have tramadol that he takes at home. Patient advised to take his medicine that he has at home as directed. - Vital Signs Vital signs: Temp Pulse Resp BP Pulse Ox 98.1 F 63 18 124/95 H 100 08/31/18 21:55 08/31/18 21:55 08/31/18 21:55 08/31/18 21:55 08/31/18 21:55 - Diagnostic Test Radiology reviewed: Pending, Image reviewed Procedures - Immobilization Right Shoulder Pre-Proc Neuro Vasc Exam: Normal Immobilizer type: Shoulder immobilizer Performed by: PCT Post-Proc Neuro Vasc Exam: Normal Alignment checked and good: Yes Discharge - Discharge Clinical Impression: Right elbow pain, Sprain Right shoulder pain Qualifiers: Chronicity: acute Qualified Code(s): M25.511 - Pain in right shoulder Condition: Stable Disposition: HOME, SELF-CARE Instructions: Ice & Elevation ([facility]), Shoulder Injury ([facility]), Sling as Treatment ([facility]), Sprain ([facility]) Additional Instructions: Return immediately for any new or worsening symptoms Followup with your primary care provider, call tomorrow to make a followup appointment Take your tramadol that you have at home as prescribed Follow-up with your orthopedic surgeon for recheck Forms: Return to Work Referrals: [facility]] - Follow up as needed [facility] [Provider Group] - Follow up tomorrow
--- NOTE | 2018-09-01 01:34 | RADIOLOGY REPORT (SQ) ---
EXAM DESCRIPTION: Right elbow RadLex: XR ELBOW 3 VIEWS Views: 5 CLINICAL HISTORY: 33 years Male, holding dog back, r elbow pain COMPARISON: None. FINDINGS: Negative for acute fracture, dislocation, or radiopaque foreign body. No joint effusion. No lytic bone changes or periosteal reaction. No soft tissue air. IMPRESSION: 1. No acute findings.
== END 2018-09-01 01:32 | disposition home or self-care (01) ==
LOC: ER 21:48
DX: S53.401A Unspecified sprain of right elbow, initial encounter (principal); M25.511 Pain in right shoulder; X50.0XXA Overexertion from strenuous movement or load, initial encounter; Y92.009 Unspecified place in unspecified non-institutional (private) residence as the place of occurrence of the external cause; I25.10 Atherosclerotic heart disease of native coronary artery without angina pectoris; I25.2 Old myocardial infarction; Z87.442 Personal history of urinary calculi
CPT/HCPCS: 99283; 73080; 73030; L3650

== ENCOUNTER 2018-11-04 14:29 | Emergency (ER) | payer OTHER ==
[2018-11-04] MEDS ORDERED: DIPH/PERTUSS(ACELL)/TETANUS VAC/PF 0.5 ML SYR (>=10YO) IM ONE (14:42)
[2018-11-04] MEDS ORDERED: LIDOCAINE 1% INJ-PF (10 MG/ML) 30 ML SDV INJ ONE (14:42)
--- NOTE | 2018-11-04 14:45 | ER Document Report ---
ED Medical Screen (RME) - General Chief Complaint: Laceration Stated Complaint: LEG LACERATION Time Seen by Provider: 11/04/18 14:42 Primary Care Provider: BELLO,REJI [Primary Care Provider] - Follow up as needed TRAVEL OUTSIDE OF THE [place] IN LAST 30 DAYS: No - HPI Notes: 11/04/18 14:44 Patient is a 33-year-old male no significant past medical history who presents with a laceration to his right anterior tibial area by metal from an AC unit prior to arrival. Last tetanus was 6 years ago. He is able to move his foot without difficulty. No other concerns or complaints. Denies ALVAREZ, fever, neck pain, URI, CP, SOB, Abd pain, dysuria, back pain, or rash. I have treated and performed a rapid initial assessment of this patient. A comprehensive ED assessment and evaluation of the patient, analysis of test results and completion of medical decision making process will be conducted by additional ED providers. PHYSICAL EXAMINATION: GENERAL: Well-appearing, well-nourished and in no acute distress. A&Ox4. Answers questions appropriately. Right leg: + 1.5cm laceration noted w/o any obvious arterial bleed. N/V intact distal. - Related Data Allergies/Adverse Reactions: gadoteridol [From Prohance] Allergy (Severe, Verified 11/04/18 14:36) Shortness of Breath hyoscyamine sulfate [From Levsin] Allergy (Severe, Verified 11/04/18 14:36) Shortness of Breath Iodinated Contrast- Oral and IV Dye Allergy (Severe, Verified 11/04/18 14:36) metoclopramide HCl [From Reglan] Allergy (Severe, Verified 11/04/18 14:36) Shortness of Breath promethazine HCl [From Phenergan] Allergy (Severe, Verified 11/04/18 14:36) Shortness of Breath ciprofloxacin [From Cipro] Allergy (Verified 11/04/18 14:36) metoclopramide [From Reglan] Allergy (Verified 11/04/18 14:36) morphine Allergy (Verified 11/04/18 14:36) omeprazole Allergy (Verified 11/04/18 14:36) Penicillins Allergy (Verified 11/04/18 14:36) promethazine [From Phenergan] Allergy (Verified 11/04/18 14:36) piperacillin [From Zosyn] Adverse Reaction (Verified 11/04/18 14:36) tazobactam [From Zosyn] Adverse Reaction (Verified 11/04/18 14:36) Past Medical History - Past Medical History Cardiac Medical History: Reports: Hx Coronary Artery Disease - CARDIAC CATH/ LOOP RECORDER/ ABLATION X 2, Hx Heart Attack - X 3 Pulmonary Medical History: Reports: Hx Pneumonia Neurological Medical History: Reports: Hx Seizures - 2012- COMA FOR ONE WEEK- MEDICATION INDUCED Renal/ Medical History: Reports: Hx Kidney Stones - 23 stones. Denies: Hx Peritoneal Dialysis GI Medical History: Reports: Hx Gastritis, Hx Gastroesophageal Reflux Disease, Hx Hiatal Hernia - REPAIR, Hx Endoscopy Musculoskeltal Medical History: Reports Hx Arthritis, Reports Hx Musculoskeletal Deformity, Reports Hx Musculoskeletal Trauma Skin Medical History: Reports Hx Cellulitis Psychiatric Medical History: Reports: Hx Anxiety, Hx Post Traumatic Stress Disorder Past Surgical History: Reports: Hx Abdominal Surgery - hernia repair, Vladimir Fundoplication, partial esophagectomy, Hx Appendectomy, Hx Cardiac Surgery - 2X ablation, Hx Inguinal Hernia - 2, Hx Orthopedic Surgery - R shoulder, Other - Vladimir's fundoplication with esophagectomy. - Immunizations Immunizations up to date: Yes Hx Diphtheria, Pertussis, Tetanus Vaccination: Yes - 09/17/2015 History of Influenza Vaccine for 02/2017 - 07/2017 Season: No Physical Exam - Vital signs Vitals: Temp Pulse Resp BP Pulse Ox 98.1 F 91 18 123/81 100 11/04/18 14:33 11/04/18 14:33 11/04/18 14:33 11/04/18 14:33 11/04/18 14:33 Course - Vital Signs Vital signs: Temp Pulse Resp BP Pulse Ox 98.1 F 91 18 123/81 100 11/04/18 14:33 11/04/18 14:33 11/04/18 14:33 11/04/18 14:33 11/04/18 14:33 Doctor's Discharge - Discharge Referrals: [facility] [[facility]] - Follow up as needed
[2018-11-04] MEDS ORDERED: TRAMADOL HCL 50 MG TABLET PO ONE (15:20)
--- NOTE | 2018-11-04 15:21 | ER Document Report ---
HPI - HPI Patient complains to provider of: Leg laceration Time Seen by Provider: 11/04/18 14:42 Onset: This afternoon Onset/Duration: Sudden Quality of pain: Achy Pain Level: 4 Context: Patient states that he was working on an air conditioning unit which fell against his leg. Patient states that this caused his knee to jar and he recently had surgery on his knee. Patient does complain of some right knee swelling. Patient with laceration to right lower leg. Associated Symptoms: Other - Right leg pain Exacerbated by: Movement Relieved by: Denies Similar symptoms previously: No Recently seen / treated by doctor: No - ROS ROS below otherwise negative: Yes Systems Reviewed and Negative: Yes All other systems reviewed and negative - NEURO Neurology: DENIES: Weakness - GASTROINTESTINAL Gastrointestinal: DENIES: Nausea, Patient vomiting - MUSCULOSKELETAL Musculoskeletal: REPORTS: Extremity pain - DERM Skin Color: Normal Skin Problems: Laceration Past Medical History - General Information source: Patient - Social History Smoking Status: Never Smoker Frequency of alcohol use: Occasional Drug Abuse: None 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 Denies: Hx Peritoneal Dialysis GI Medical History: Reports: Hx Gastritis, Hx Gastroesophageal Reflux Disease, Hx Hiatal Hernia - REPAIR, Hx Endoscopy Musculoskeletal Medical History: Reports Hx Arthritis, Reports Hx Musculoskeletal Deformity, Reports Hx Musculoskeletal Trauma Skin Medical History: Reports Hx Cellulitis Psychiatric Medical History: Reports: Hx Anxiety, Hx Post Traumatic Stress Disorder Past Surgical History: Reports: Hx Abdominal Surgery - hernia repair, Vladimir Fundoplication, partial esophagectomy, Hx Appendectomy, Hx Cardiac Surgery - 2X ablation, Hx Inguinal Hernia - 2, Hx Orthopedic Surgery - R shoulder, Other - Vladimir's fundoplication with esophagectomy. - Immunizations Immunizations up to date: Yes Hx Pneumococcal Vaccination: 05/27/13 Vertical Provider Document - CONSTITUTIONAL Agree With Documented VS: Yes Exam Limitations: No Limitations General Appearance: WD/WN, No Apparent Distress - INFECTION CONTROL TRAVEL OUTSIDE OF THE [place] IN LAST 30 DAYS: No - HEENT HEENT: Atraumatic, Normocephalic - NECK Neck: Normal Inspection - RESPIRATORY Respiratory: No Respiratory Distress - CARDIOVASCULAR Cardiovascular: Regular Rhythm Pulses: Normal: Posterior tibial - MUSCULOSKELETAL/EXTREMETIES Musculoskeletal/Extremeties: MAEW, FROM, Edema - effusion to right knee - NEURO Level of Consciousness: Awake, Alert, Appropriate Motor/Sensory: No Motor Deficit - DERM Integumentary: Warm, Dry, Laceration - 2 cm irregular laceration to anterior aspect of middle third of right lower leg Course - Re-evaluation Re-evalutation: 11/04/18 16:30 Patient without any acute fracture noted on x-ray, no foreign body. Patient is recent status post meniscal surgery on the right knee. - Vital Signs Vital signs: Temp Pulse Resp BP Pulse Ox 98.1 F 91 18 123/81 100 11/04/18 14:33 11/04/18 14:33 11/04/18 14:33 11/04/18 14:33 11/04/18 14:33 - Diagnostic Test Radiology reviewed: Image reviewed, Reports reviewed Procedures - Laceration/Wound Repair Right Leg Wound length (cm): 2 Wound's Depth, Shape: Irregular, Flap Laceration pre-procedure: Other - surgical scrub Anesthetic type: 1% Lidocaine Wound explored: Clean, No foreign body removed Wound Repaired With: Sutures Suture Size/Type: 4:0, Nylon Number of Sutures: 5 Layer Closure?: No Post-procedure NV exam normal: Yes Complications: No Adult Front & Back picture: 1 - leg lac Discharge - Discharge Clinical Impression: Laceration of right lower leg Qualifiers: Encounter type: initial encounter Qualified Code(s): S81.811A - Laceration without foreign body, right lower leg, initial encounter Right knee pain Qualifiers: Chronicity: unspecified Qualified Code(s): M25.561 - Pain in right knee Condition: Stable Disposition: HOME, SELF-CARE Instructions: Laceration Care ([facility]), Tetanus Immunization Given ([facility]) Additional Instructions: Return immediately for any new or worsening symptoms Followup with your primary care provider, call tomorrow to make a followup appointment Suture removal in 12 days Follow-up with your orthopedic surgeon for recheck of your right knee Prescriptions: Naproxen [Naprosyn 250 Nmg Tablet] 1 tab PO BID #14 tablet Forms: Return to Work Referrals: [facility] [[facility]] - Follow up as needed
--- NOTE | 2018-11-04 15:27 | RADIOLOGY REPORT (SQ) ---
EXAM DESCRIPTION: TIBIA FIBULA RIGHT COMPLETED DATE/TIME: 11/04/2018 3:05 pm REASON FOR STUDY: tibial lac mid shaft COMPARISON: None. NUMBER OF VIEWS: Two views. TECHNIQUE: Two radiographic images acquired of the right tibia and fibula to include the knee and an kle in at least one projection. LIMITATIONS: None. FINDINGS: MINERALIZATION: Normal. BONES: No acute fracture or dislocation. No worrisome bone lesions. SOFT TISSUES: Soft tissue injury anterior mid lower extremity. No foreign body. OTHER: No other significant finding. IMPRESSION: 1. No acute osseous findings. TECHNICAL DOCUMENTATION: JOB ID: [id number] [employer]- All Rights Reserved Reading location - IP/workstation name: [email or web address]
[2018-11-04 17:19] VITALS: BP 114/82
== END 2018-11-04 17:26 | disposition home or self-care (01) ==
LOC: ER 14:29
DX: S81.811A Laceration without foreign body, right lower leg, initial encounter (principal); M25.561 Pain in right knee; W20.8XXA Other cause of strike by thrown, projected or falling object, initial encounter; Y99.0 Civilian activity done for income or pay; I25.10 Atherosclerotic heart disease of native coronary artery without angina pectoris; I25.2 Old myocardial infarction; Z23 Encounter for immunization
CPT/HCPCS: 99283; 90471; 73590; 90715; 12001; J3490

== ENCOUNTER 2019-02-10 17:00 | Emergency (ER) | payer OTHER ==
[2019-02-10] MEDS ORDERED: KETOROLAC TROMETHAMINE 60 MG/2 ML SDV IM ONE (17:26)
--- NOTE | 2019-02-10 17:36 | ER Document Report ---
HPI - HPI Patient complains to provider of: right hip pain Time Seen by Provider: 02/10/19 17:19 Onset: Other - 3 days Onset/Duration: Persistent Quality of pain: Achy Severity: Moderate Pain Level: 3 Context: This 33-year-old male presents emergency department with complaints of right hip pain for the past 3 days with chronic knee pain. Patient reports he has had right knee surgery twice. Reports chronic knee pain is TENS unit is not helping the hip or the knee. Denies other symptoms such as fever vomiting diarrhea. Reports every now and then the toes on his right foot will go numb. He denies numbness at this time. Associated Symptoms: None Exacerbated by: Movement Relieved by: Denies Similar symptoms previously: No Recently seen / treated by doctor: No Past Medical History - General Information source: Patient - Social History Smoking Status: Never Smoker Chew tobacco use (# tins/day): Yes Frequency of alcohol use: Rare Drug Abuse: None Occupation: heating and cooling Lives with: Family Family History: Arthritis, Malignancy, CAD, CVA, DM, Hyperlipidemia, Hypertension, Reviewed & Not Pertinent, Thyroid Disfunction Patient has suicidal ideation: No Patient has homicidal ideation: No - Past Medical History Cardiac Medical History: Reports: Hx Coronary Artery Disease - CARDIAC CATH/ LOOP RECORDER/ ABLATION X 2, Hx Heart Attack - X 3 Pulmonary Medical History: Reports: Hx Pneumonia Neurological Medical History: Reports: Hx Seizures - 2012- COMA FOR ONE WEEK- MEDICATION INDUCED Renal/ Medical History: Reports: Hx Kidney Stones - 23 stones. Denies: Hx Peritoneal Dialysis GI Medical History: Reports: Hx Gastritis, Hx Gastroesophageal Reflux Disease, Hx Hiatal Hernia - REPAIR, Hx Endoscopy Musculoskeletal Medical History: Reports Hx Arthritis, Reports Hx Musculoskeletal Deformity, Reports Hx Musculoskeletal Trauma Skin Medical History: Reports Hx Cellulitis Psychiatric Medical History: Reports: Hx Anxiety, Hx Post Traumatic Stress Disorder Past Surgical History: Reports: Hx Abdominal Surgery - hernia repair, Vladimir Fundoplication, partial esophagectomy, Hx Appendectomy, Hx Cardiac Surgery - 2X ablation, Hx Inguinal Hernia - 2, Hx Orthopedic Surgery - R shoulder, Other - Vladimir's fundoplication with esophagectomy. - Immunizations Immunizations up to date: Yes Hx Diphtheria, Pertussis, Tetanus Vaccination: Yes - 09/17/2015 Hx Pneumococcal Vaccination: 05/27/13 Vertical Provider Document - CONSTITUTIONAL Agree With Documented VS: Yes Exam Limitations: No Limitations General Appearance: WD/WN, No Apparent Distress - winces when hip and knee palpated - INFECTION CONTROL TRAVEL OUTSIDE OF THE [place] IN LAST 30 DAYS: No - HEENT HEENT: Atraumatic, Normocephalic - NECK Neck: Normal Inspection, Supple. negative: Lymphadenopathy-Left, Lymphadenopathy-Right - RESPIRATORY Respiratory: Breath Sounds Normal, No Respiratory Distress - CARDIOVASCULAR Cardiovascular: Regular Rate - GI/ABDOMEN Gastrointestinal: Abdomen Soft, Abdomen Non-Tender - BACK Back: Normal Inspection - reports right lower back/ posterior iliac crest tender to palpate no erythema no swelling no warmth good distal movement and sensation. negative: CVA Tenderness-Right, CVA Tenderness-Left - MUSCULOSKELETAL/EXTREMETIES Musculoskeletal/Extremeties: MAEW, FROM, Tender - Reports chronic right knee pain. Reports history of 2 surgeries to the knee. No erythema no swelling no warmth no obvious deformity full range of motion flexes and extends without problems. - NEURO Level of Consciousness: Awake, Alert, Appropriate Motor/Sensory: No Motor Deficit - DERM Integumentary: Warm, Dry Course - Re-evaluation Re-evalutation: 02/10/19 17:35 Patient presents emergency department with right hip pain for the past 3 days and chronic right knee pain. Patient reports his primary care provider is the [facility]. Reports very hard to get in to see a person at the [facility]. he reports he has been treated with Ultram in the past for his knee pain. Complains of hip pain for the past 3 days and also reports his toes on his right foot become numb at times. No numbness at this time. Denies trauma. Denies fever vomiting diarrhea. Past medical history reviews history of seizures. Patient reports he had a seizure when he quit taking clonazepam cold turkey. He reports he has had Ultram since then and it helps with his pain. Reports no further seizures. 02/10/19 18:12 Hip/Pelvis X-Ray 02/10/19 17:26 IMPRESSION: NEGATIVE STUDY OF THE RIGHT HIP. NO RADIOGRAPHIC EVIDENCE OF ACUTE INJURY. Hip x-ray negative for any acute injury. Patient will be treated with Ultram. He reports he is taking this in the past without any problems of seizures. Also was instructed [facility]. He verbalized understanding to all instructions Dictation of this chart was performed using voice recognition software; therefore, there may be some unintended grammatical errors. - Vital Signs Vital signs: Temp Pulse Resp BP Pulse Ox 98.6 F 100 18 118/81 99 02/10/19 17:05 02/10/19 17:05 02/10/19 17:05 02/10/19 17:05 02/10/19 17:05 - Diagnostic Test Radiology reviewed: Image reviewed, Reports reviewed Discharge - Discharge Clinical Impression: Right hip pain, Chronic pain of right knee Condition: Stable Disposition: HOME, SELF-CARE Instructions: Ice Packs ([facility]), Toradol Injection ([facility]), Ultram ([facility]) Additional Instructions: *You have been evaluated for Right hip pain and knee pain *Rest, ice packs to your hip and knee *[facility] *Take medication as prescribed *Return to ED for worsening condition, changes, needs Prescriptions: Tramadol HCl [Ultram 50 mg Tablet] 50 mg PO ASDIR PRN #20 tablet PRN Reason: Forms: Return to Work [facility] [[facility] - Follow up tomorrow
--- NOTE | 2019-02-10 18:07 | RADIOLOGY REPORT (SQ) ---
EXAM DESCRIPTION: HIP RIGHT AP/LATERAL COMPLETED DATE/TIME: 02/10/2019 5:38 pm REASON FOR STUDY: pain COMPARISON: None. NUMBER OF VIEWS: Two views. TECHNIQUE: AP pelvis and additional frog-leg view of the right hip. LIMITATIONS: None. FINDINGS: MINERALIZATION: Normal. RIGHT HIP: No fracture or dislocation. No worrisome bone lesions. LEFT HIP: No fracture or dislocation. No worrisome bone lesions. PUBIS AND ISCHIUM: No fracture. PELVIS: No fracture. SACRUM: No fracture or dislocation. No worrisome bone lesions. LOWER LUMBAR SPINE: No fracture or dislocation. No worrisome bone lesions. No significant disc disea se. SOFT TISSUES: No findings. OTHER: No other significant finding. IMPRESSION: NEGATIVE STUDY OF THE RIGHT HIP. NO RADIOGRAPHIC EVIDENCE OF ACUTE INJURY. TECHNICAL DOCUMENTATION: JOB ID: [id number] [employer]- All Rights Reserved Reading location - IP/workstation name: [email or web address]
[2019-02-10 18:27] VITALS: BP 111/76
== END 2019-02-10 18:27 | disposition home or self-care (01) ==
LOC: ER 17:00
DX: M25.561 Pain in right knee (principal); G89.29 Other chronic pain; M25.569 Pain in unspecified knee; R20.0 Anesthesia of skin; Z98.890 Other specified postprocedural states; Z96.89 Presence of other specified functional implants; I25.10 Atherosclerotic heart disease of native coronary artery without angina pectoris
CPT/HCPCS: 99283; 96374; 73502; J1885

== ENCOUNTER 2019-05-24 14:46 | Inpatient (IN) | payer OTHER ==
[2019-05-24] MEDS ORDERED: LORAZEPAM INJ 2 MG/1 ML VIAL IV ONE ×2 (14:56→16:24)
--- NOTE | 2019-05-24 15:02 | ER Document Report ---
ED General - General Chief Complaint: Overdose Stated Complaint: POSSIBLE OVERDOSE Time Seen by Provider: 05/24/19 14:51 Primary Care Provider: BELLO,REJI [Primary Care Provider] - Follow up as needed Notes: HPI: 34-year-old male who is been having relational problems with his who around 1:15 supposedly took an unknown quantity of 25 mg tablets of Benadryl. Patient states he was recently purchased bottle. He believes he had around 90 tablets in the bottle. Patient takes it only for sleep at night. There were 2 tablets left by EMS. EMS provided activated charcoal. He was having some visual hallucinations. Patient denies any pain at this time. He states he was very upset and attempted to kill himself. History as recorded medically. Patient states he last drank alcohol 2 weeks ago. ROS: See HPI All other review of systems reviewed and otherwise negative Reviewed vital signs and nursing note as charted by RN. PHYSICAL EXAM: CONSTITUTIONAL: Patient has a mild tremor. He is oriented to person place and time HEAD: Normocephalic; atraumatic EYES: Pupils are dilated but reactive bilaterally; Conjunctivae clear, sclerae non-icteric ENT: Patient has charcoal around the mouth and lips NECK: Supple without meningismus; non-tender; no cervical lymphadenopathy, no masses CARD: Tachycardic and regular; no murmurs; symmetric distal pulses RESP: Normal chest excursion without splinting or tachypnea; breath sounds clear and equal bilaterally ABD/GI: Normal bowel sounds; non-distended; soft, non-tender to deep palpation of all 4 quadrants of the abdomen; no palpable organomegaly or masses BACK: The back appears normal and is non-tender to palpation EXT: Normal ROM in all joints; non-tender to palpation; no edema SKIN: No acute lesions noted NEURO: CN 2-12 intact; no obvious nystagmus. 5/5 bilateral upper and lower extremity strength with sensation intact to light touch PSYCH: Mild tremors with flat affect TRAVEL OUTSIDE OF THE [place] IN LAST 30 DAYS: No - Related Data Allergies/Adverse Reactions: gadoteridol [From Prohance] Allergy (Severe, Verified 05/24/19 15:08) Shortness of Breath hyoscyamine sulfate [From Levsin] Allergy (Severe, Verified 05/24/19 15:08) Shortness of Breath Iodinated Contrast Media Allergy (Severe, Verified 05/24/19 15:08) metoclopramide HCl [From Reglan] Allergy (Severe, Verified 05/24/19 15:08) Shortness of Breath promethazine HCl [From Phenergan] Allergy (Severe, Verified 05/24/19 15:08) Shortness of Breath ciprofloxacin [From Cipro] Allergy (Verified 05/24/19 15:08) metoclopramide [From Reglan] Allergy (Verified 05/24/19 15:08) morphine Allergy (Verified 05/24/19 15:08) omeprazole Allergy (Verified 05/24/19 15:08) Penicillins Allergy (Verified 05/24/19 15:08) promethazine [From Phenergan] Allergy (Verified 05/24/19 15:08) piperacillin [From Zosyn] Adverse Reaction (Verified 05/24/19 15:08) tazobactam [From Zosyn] Adverse Reaction (Verified 05/24/19 15:08) Past Medical History - Social History Smoking Status: Unknown if Ever Smoked Cigarette use (# per day): No Family History: Arthritis, Malignancy, CAD, CVA, DM, Hyperlipidemia, Hypertension, Reviewed & Not Pertinent, Thyroid Disfunction - Past Medical History Cardiac Medical History: Reports: Hx Coronary Artery Disease - CARDIAC CATH/ LOOP RECORDER/ ABLATION X 2, Hx Heart Attack - X 3 Pulmonary Medical History: Reports: Hx Pneumonia Neurological Medical History: Reports: Hx Seizures - 2012- COMA FOR ONE WEEK- MEDICATION INDUCED Renal/ Medical History: Reports: Hx Kidney Stones - 23 stones. Denies: Hx Peritoneal Dialysis GI Medical History: Reports: Hx Gastritis, Hx Gastroesophageal Reflux Disease, Hx Hiatal Hernia - REPAIR, Hx Endoscopy Musculoskeletal Medical History: Reports Hx Arthritis, Reports Hx Musculoskeletal Deformity, Reports Hx Musculoskeletal Trauma Skin Medical History: Reports Hx Cellulitis Psychiatric Medical History: Reports: Hx Anxiety, Hx Post Traumatic Stress Disorder Past Surgical History: Reports: Hx Abdominal Surgery - hernia repair, Vladimir Fundoplication, partial esophagectomy, Hx Appendectomy, Hx Cardiac Surgery - 2X ablation, Hx Inguinal Hernia - 2, Hx Orthopedic Surgery - R shoulder, Other - Valdimir's fundoplication with esophagectomy. - Immunizations Immunizations up to date: Yes Hx Diphtheria, Pertussis, Tetanus Vaccination: Yes - 09/17/2015 Hx Pneumococcal Vaccination: 01/01/14 Physical Exam - Vital signs Vitals: Resp Pulse Ox 18 98 05/24/19 14:48 05/24/19 14:48 Course - Re-evaluation Re-evalutation: 05/24/19 15:02 Given the above history and physical I did consult again the [facility]. They did recommend a 4-hour acetaminophen which I had already ordered. They believe that the patient needs to be monitored for 8 to 12 hours given the quantity of possible Benadryl. Patient is tachycardic and I will provide fluids and a small dose of Ativan. I believe this is most likely acetylcholine related. Patient denies any chest pain or shortness of breath. 05/24/19 15:02 EKG shows a heart rate of 124, sinus tachycardia, normal axis, no obvious ST elevation. Inverted T waves with possible minimal ST depression in leads II, 3, aVF, V3 through V6 05/24/19 16:15 Initial labs as recorded. Patient's tachycardia has improved. Still some hallucinations. Timed Tylenol is pending. Patient will be admitted for further evaluation and monitoring. - Vital Signs Vital signs: Temp Pulse Resp BP Pulse Ox 25 H 130/98 H 98 05/24/19 16:00 05/24/19 16:00 05/24/19 16:00 - Laboratory Result Diagrams: 05/24/19 14:58 05/24/19 14:58 Laboratory results interpreted by me: 05/24/19 05/24/19 14:58 14:58 WBC 21.3 H Seg Neuts % (Manual) 95 H Lymphocytes % (Manual) 3 L Monocytes % (Manual) 2 L Abs Neuts (Manual) 20.2 H Sodium 145.1 H Potassium 3.0 L* Anion Gap 20 H Glucose 113 H Total Protein 8.5 H Salicylates < 1.0 L Acetaminophen < 10 L Critical Care Note - Critical Care Note Total time excluding time spent on procedures (mins): 35 Discharge - Discharge Clinical Impression: Tachycardia, Hallucinations Overdose Qualifiers: Encounter type: initial encounter Injury intent: intentional self-harm Qualified Code(s): T50.902A - Poisoning by unspecified drugs, medicaments and biological substances, intentional self-harm, initial encounter Condition: Fair Disposition: ADMITTED INPATIENT Admitting Provider: Connor (Hospitalist) Unit Admitted: IMCU [facility] - Follow up as needed
[2019-05-24 15:23] LABS: HEMATOCRIT 42.4 % (37.9-51.0); HEMOGLOBIN 15.1 g/dL (13.5-17.0); MEAN CORPUSCULAR HEMOGLOBIN 31.2 pg (27.0-33.4); MEAN CORPUSCULAR HGB CONC 35.7 g/dL (32.0-36.0); MEAN CORPUSCULAR VOLUME 87 fl (80-97); PLATELET COUNT 345 10^3/uL (150-450); RED BLOOD COUNT 4.86 10^6/uL (4.35-5.55); RED CELL DISTRIBUTION WIDTH 13.9 % (11.5-14.0); WHITE BLOOD COUNT 21.3 10^3/uL (4.0-10.5)
[2019-05-24 15:41] LABS: ALBUMIN 4.9 g/dL (3.5-5.0); ALKALINE PHOSPHATASE 71 U/L (38-126); ASPARTATE AMINO TRANSFERASE 18 U/L (17-59); BILIRUBIN,DIRECT 0.2 mg/dL (0.0-0.4); BILIRUBIN,TOTAL 0.7 mg/dL (0.2-1.3); BLOOD UREA NITROGEN 11 mg/dL (7-20); CALCIUM 9.9 mg/dL (8.4-10.2); CARBON DIOXIDE 24 mmol/L (22-30); CHLORIDE 101 mmol/L (98-107); GLUCOSE 113 mg/dL (75-110); TOTAL PROTEIN 8.5 g/dL (6.3-8.2)
[2019-05-24 15:42] LABS: ALCOHOL < 10 mg/dL (NONE DETECTED); SALICYLATE < 1.0 mg/dL (2.0-20.0)
[2019-05-24 15:46] LABS: ACETAMINOPHEN < 10 ug/mL (10-30); ANION GAP 20 (5-19)
[2019-05-24 15:59] LABS: ABSOLUTE LYMPHOCYTES# (MANUAL) 0.6 10^3/uL (0.5-4.7); ABSOLUTE MONOCYTES # (MANUAL) 0.4 10^3/uL (0.1-1.4); BASOPHILS % (MANUAL) 0 % (0-2); EOSINOPHILS % (MANUAL) 0 % (0-6); LYMPHOCYTES % (MANUAL) 3 % (13-45); MONOCYTES % (MANUAL) 2 % (3-13); SEGMENTED NEUTROPHILS % (MAN) 95 % (42-78); TOTAL CELLS COUNTED 100
[2019-05-24 16:01] LABS: PLATELET COMMENT ADEQUATE; RBC MORPHOLOGY COMMENT NORMO-CYTIC/CHROMIC
[2019-05-24] MEDS ORDERED: POTASSI CL 20 MEQ/50 ML RIDER 20 MEQ/50 ML RTUPB IV ONE (16:16)
[2019-05-24] MEDS ORDERED: ONDANSETRON HCL INJ/PF 4 MG/2 ML SDV IV PRN (17:07)
--- NOTE | 2019-05-24 17:16 | PDOC H&P ---
History of Present Illness Admission Date/PCP: 05/24/19 16:27 [facility] History of Present Illness: ABDULAZIZ GAMBOA is a 34 year old male who presented to ED after intentional diphenhydramine overdose. As per ED physician's note patient been having having relational problems with his who around 1:15 supposedly took an unknown quantity of 25 mg tablets of Benadryl. Patient states he was recently purchased bottle. He believes he had around 90 tablets in the bottle. Patient takes it only for sleep at night. There were 2 tablets left by EMS. EMS provided activated charcoal. He was having some visual hallucinations. Patient denies any pain at this time. He states he was very upset and attempted to kill himself. History as recorded medically. Patient states he last drank alcohol 2 weeks ago. On my encounter no family at the bedside, patient is awake, alert, but unfortu nately only oriented to self, does not follow three-step command, attention span is very short appears to be responding to internal stimuli but when asked he denies having any visual or auditory hallucinations. Past Medical History Cardiac Medical History: Reports: Coronary Artery Disease - CARDIAC CATH/ LOOP RECORDER/ ABLATION X 2, Myocardial Infarction - X 3 Pulmonary Medical History: Reports: Pneumonia Neurological Medical History: Reports: Seizures - 2012- COMA FOR ONE WEEK- MEDICATION INDUCED GI Medical History: Reports: Gastroesophageal Reflux Disease, Hiatal Hernia - REPAIR Musculoskeltal Medical History: Reports: Arthritis Psychiatric Medical History: Reports: Post Traumatic Stress Disorder Hematology: Reports: Anemia Past Surgical History Past Surgical History: Reports: Appendectomy, Orthopedic Surgery - R shoulder, Other - Vladimir's fundoplication with esophagectomy. Social History Smoking Status: Unknown if Ever Smoked Electronic Cigarette use?: No Frequency of Alcohol Use: Rare - A couple of beers twice a month Hx Recreational Drug Use: No Drugs: None Hx Prescription Drug Abuse: No Family History Family History: Arthritis, Malignancy, CAD, CVA, DM, Hyperlipidemia, Hypertension, Reviewed & Not Pertinent, Thyroid Disfunction Parental Family History Reviewed: Yes Children Family History Reviewed: Yes Sibling(s) Family History Reviewed.: Yes Medication/Allergy Allergies/Adverse Reactions: gadoteridol [From Prohance] Allergy (Severe, Verified 05/24/19 15:08) Shortness of Breath hyoscyamine sulfate [From Levsin] Allergy (Severe, Verified 05/24/19 15:08) Shortness of Breath Iodinated Contrast Media Allergy (Severe, Verified 05/24/19 15:08) metoclopramide HCl [From Reglan] Allergy (Severe, Verified 05/24/19 15:08) Shortness of Breath promethazine HCl [From Phenergan] Allergy (Severe, Verified 05/24/19 15:08) Shortness of Breath ciprofloxacin [From Cipro] Allergy (Verified 05/24/19 15:08) metoclopramide [From Reglan] Allergy (Verified 05/24/19 15:08) morphine Allergy (Verified 05/24/19 15:08) omeprazole Allergy (Verified 05/24/19 15:08) Penicillins Allergy (Verified 05/24/19 15:08) promethazine [From Phenergan] Allergy (Verified 05/24/19 15:08) piperacillin [From Zosyn] Adverse Reaction (Verified 05/24/19 15:08) tazobactam [From Zosyn] Adverse Reaction (Verified 05/24/19 15:08) Review of Systems ROS unobtainable: Due to mental status Physical Exam Vital Signs: Temp Pulse Resp BP Pulse Ox 29 H 130/98 H 100 05/24/19 16:01 05/24/19 16:00 05/24/19 16:01 Intake & Output 05/23/19 05/24/19 05/25/19 06:59 06:59 06:59 Weight 64 kg General appearance: PRESENT: no acute distress, well-developed, well-nourished Head exam: PRESENT: atraumatic, normocephalic Eye exam: PRESENT: EOMI, other - Bilateral mydriasis Respiratory exam: PRESENT: clear to auscultation jin. ABSENT: rales, rhonchi, wheezes Cardiovascular exam: PRESENT: RRR, tachycardia. ABSENT: diastolic murmur, rubs, systolic murmur GI/Abdominal exam: PRESENT: normal bowel sounds, soft. ABSENT: distended, guarding, mass, organolmegaly, rebound, tenderness Extremities exam: PRESENT: full ROM. ABSENT: calf tenderness, clubbing, pedal edema Neurological exam: PRESENT: alert, awake, oriented to person, CN II-XII grossly intact. ABSENT: motor sensory deficit Skin exam: PRESENT: dry, intact, warm. ABSENT: cyanosis, rash Results Laboratory Results: 05/24/19 14:58 05/24/19 14:58 05/24/19 05/24/19 14:58 14:58 WBC 21.3 H RBC 4.86 Hgb 15.1 Hct 42.4 MCV 87 MCH 31.2 MCHC 35.7 RDW 13.9 Plt Count 345 Seg Neutrophils % Not Reportable Sodium 145.1 H Potassium 3.0 L* Chloride 101 Carbon Dioxide 24 Anion Gap 20 H BUN 11 Creatinine 1.24 Est GFR ( Amer) > 60 Glucose 113 H Calcium 9.9 Total Bilirubin 0.7 AST 18 Alkaline Phosphatase 71 Total Protein 8.5 H Albumin 4.9 Assessment and Plan - Diagnosis (1) Intentional diphenhydramine overdose Qualifiers: Encounter type: initial encounter Qualified Code(s): T45.0X2A - Poisoning by antiallergic and antiemetic drugs, intentional self-harm, initial encounter Is this a current diagnosis for this admission?: Yes Plan: Admit to IMCU. Monitor vitals. Monitor for urinary retention. Sodium bicarbonate IV. Scheduled low-dose benzos. Seizure, fall and aspiration precautions. Avoid any drugs with anticholinergic activity. Consider anticholinesterase inhibitors such as physostigmine if no improvement. (2) Acute anoxic encephalopathy Is this a current diagnosis for this admission?: Yes Plan: Acute toxic metabolic encephalopathy. Due to drug overdose. Plan as per #1. (3) Hallucinations Is this a current diagnosis for this admission?: Yes Plan: Due to anticholinergic toxicity. Plan as per #1. (4) Overdose Qualifiers: Encounter type: initial encounter Injury intent: intentional self-harm Qualified Code(s): T50.902A - Poisoning by unspecified drugs, medicaments and biological substances, intentional self-harm, initial encounter Is this a current diagnosis for this admission?: Yes Plan: Intentional drug overdose. Suicidal ideation. Psychiatry consulted. Currently patient IVC. Follow-up recommendations.
--- NOTE | 2019-05-24 17:29 | PSYCHOLOGICAL NOTE ---
Psych Note - Psych Note Date seen by psych provider: 05/24/19 Time seen by psych provider: 16:30 Psych Note: Reason For Consult: Intentional overdose Consent Permissions: Unable to provide Patient is unable to engage in evaluation. He is currently responding to inte rnal stimuli i.e. hallucinations. He demonstrates disorganized thought processes with flight of ideas. He is unable to engage in any organized and linear conversations. Clinician spoke with patient's who discloses that they are currently going through a separation. She reports that the patient is not handling this well and is in "shock." She discloses that she has stated to him in the past that she was going to leave however this time she has actually follow through. She reports that today she signed the lease over into just her name and removed him. She continued to report that May 02 they went home to visit family and had to pretend that everything was okay as no one in the family knows what was going on. When they came back on the the patient threatened to overdose however did not take any actions. She disclosed on Saturday the he became upset again about their separation and did take Benadryl and seemed to be hallucinating however was not anywhere near having difficulties like he is today. She disclosed that today while she was at [employer] he texted her that he was sorry and that he loved her. When she came home it was very clear that he had done something. She reports that the [facility], anxiety and depression. He is supposed to take Zoloft however does not take it. The patient was taking Ambien in the past to help sleep however became violent when sleepwalking so does not take it anymore. She reports he typically takes 5 Benadryl to sleep a night. Diagnosis: Intentional Overdose Medication recommendations per [facility]'s contracted psychiatrist Dr. Marycarmen KEMP are as follows pending Impression\\plan:Patient is recommended for IVC. He has been admitted to [facility] medically. Patient will be re-evaluated. Dr. Caicedo was consulted to care management of this patient; attending physicians in agreement with recommendations and disposition.
[2019-05-24] MEDS ORDERED: LORAZEPAM INJ 2 MG/1 ML VIAL IV PRN (18:09)
[2019-05-24] MEDS ORDERED: INFLUENZA QUAD (6MOS+) 2019-20 VAC 0.5 ML SYR IM ONE (18:27)
[2019-05-24 18:36] LABS: APPEARANCE,URINE CLEAR; BILIRUBIN,URINE NEGATIVE (NEGATIVE); COLOR,URINE YELLOW; GLUCOSE, URINE NEGATIVE (NEGATIVE); KETONES,URINE TRACE mg/dL (NEGATIVE); LEUKOCYTE ESTERASE,URINE NEGATIVE (NEGATIVE); NITRITE,URINE NEGATIVE (NEGATIVE); PROTEIN,URINE 100 mg/dL (NEGATIVE); URINE SPECIFIC GRAVITY 1.021; UROBILINOGEN,URINE NEGATIVE mg/dL (<2.0)
[2019-05-24] MEDS: LORAZEPAM INJ 2 MG/1 ML VIAL IV SCH ×2 (18:39→21:15)
[2019-05-24 18:51] LABS: URINE BARBITURATES SCREEN NEGATIVE; URINE BENZODIAZEPINES SCREEN NEGATIVE; URINE COCAINE SCREEN NEGATIVE; URINE MARIJUANA (THC) SCREEN NEGATIVE; URINE METHADONE SCREEN NEGATIVE; URINE PHENCYCLIDINE SCREEN NEGATIVE
[2019-05-24 18:52] LABS: URINE AMPHETAMINES SCREEN NEGATIVE
[2019-05-24] MEDS ORDERED: SODIUM BICARBONATE 8.4% INJ 50 MEQ/50 ML DISP.SYRIN ONE ×5 (19:26→19:35)
--- NOTE | 2019-05-24 19:31 | EKG REPORT ---
SEVERITY:- ABNORMAL ECG - SINUS TACHYCARDIA TRE, CONSIDER BIATRIAL ABNORMALITIES BORDERLINE INFERIOR Q WAVES NONSPECIFIC REPOL ABNORMALITY, DIFFUSE LEADS BORDERLINE PROLONGED QT INTERVAL : Confirmed by: Lesa Zheng MD 24-May-2019 19:30:22
[2019-05-24] MEDS: DEXTROSE 5%-WATER 1000 ML 1,000 ML with SODIUM BICARBONATE 150 MEQ IV PRN ×2 (20:32)
[2019-05-24] MEDS: HEPARIN SOD (PORCINE) 5,000 UNIT/ML 1 ML VIAL SUBCUT SCH (21:16)
[2019-05-24] MEDS: TEMAZEPAM 7.5 MG CAPSULE PO PRN (21:50)
[2019-05-25] MEDS: LORAZEPAM INJ 2 MG/1 ML VIAL IV SCH ×6 (02:12→21:36)
[2019-05-25] MEDS: HEPARIN SOD (PORCINE) 5,000 UNIT/ML 1 ML VIAL SUBCUT SCH ×3 (05:06→21:39)
[2019-05-25] MEDS ORDERED: SODIUM BICARBONATE 8.4% INJ 50 MEQ/50 ML DISP.SYRIN ONE (06:31)
[2019-05-25 06:38] LABS: ABSOLUTE EOSINOPHILS # (AUTO) 0.1 10^3/uL (0.0-0.6); ABSOLUTE LYMPHOCYTES (AUTO) 1.7 10^3/uL (0.5-4.7); ABSOLUTE MONOCYTES (AUTO) 0.7 10^3/uL (0.1-1.4); ABSOLUTE NEUT (AUTO) 6.9 10^3/uL (1.7-8.2); BASOPHILS % (AUTO) 0.3 % (0-2); HEMATOCRIT 36.2 % (37.9-51.0); LYMPHOCYTES % (AUTO) 18.1 % (13-45); MEAN CORPUSCULAR HEMOGLOBIN 31.1 pg (27.0-33.4); MEAN CORPUSCULAR HGB CONC 35.6 g/dL (32.0-36.0); MEAN CORPUSCULAR VOLUME 87 fl (80-97); MONOCYTES % (AUTO) 7.3 % (3-13); PLATELET COUNT 257 10^3/uL (150-450); RED BLOOD COUNT 4.14 10^6/uL (4.35-5.55); RED CELL DISTRIBUTION WIDTH 13.6 % (11.5-14.0); SEGMENTED NEUTROPHILS % (AUTO) 73.3 % (42-78); TOTAL CELLS COUNTED % (AUTO) 100 %; WHITE BLOOD COUNT 9.4 10^3/uL (4.0-10.5)
[2019-05-25 06:41] LABS: HEMOGLOBIN 12.9 g/dL (13.5-17.0)
[2019-05-25] MEDS: DEXTROSE 5%-WATER 1000 ML 1,000 ML with SODIUM BICARBONATE 150 MEQ IV PRN ×2 (06:44)
[2019-05-25 06:59] LABS: ALBUMIN 3.6 g/dL (3.5-5.0); ALKALINE PHOSPHATASE 47 U/L (38-126); ASPARTATE AMINO TRANSFERASE 28 U/L (17-59); BILIRUBIN,DIRECT 0.1 mg/dL (0.0-0.4); BILIRUBIN,TOTAL 1.1 mg/dL (0.2-1.3); BLOOD UREA NITROGEN 10 mg/dL (7-20); CALCIUM 8.8 mg/dL (8.4-10.2); CHLORIDE 94 mmol/L (98-107); GLUCOSE 304 mg/dL (75-110); POTASSIUM 3.8 mmol/L (3.6-5.0); TOTAL PROTEIN 6.5 g/dL (6.3-8.2)
[2019-05-25 07:13] LABS: ANION GAP 9 (5-19)
[2019-05-25 07:15] LABS: CARBON DIOXIDE 41 mmol/L (22-30)
[2019-05-25] MEDS ORDERED: NORMAL SALINE 1000 ML 1,000 ML IV ONE (07:30)
[2019-05-25] MEDS ORDERED: METOPROLOL TARTRATE PF/INJ 5 MG/5 ML SDV IV PRN (10:44)
--- NOTE | 2019-05-25 11:40 | PDOC PROGRESS REPORT ---
Subjective Progress Note for:: 05/25/19 Subjective:: ABDULAZIZ GAMBOA is a 34 year old male who presented to ED after intentional diphenhydramine overdose. As per ED physician's note patient been having having relational problems with his who around 1:15 supposedly took an unknown quantity of 25 mg tablets of Benadryl. Patient states he was recently purchased bottle. He believes he had around 90 tablets in the bottle. Patient takes it only for sleep at night. There were 2 tablets left by EMS. EMS provided activated charcoal. He was having some visual hallucinations. Patient denies any pain at this time. He states he was very upset and attempted to kill himself. History as recorded medically. Patient states he last drank alcohol 2 weeks ago. On my encounter no family at the bedside, patient is awake, alert, but unfortunately only oriented to self, does not follow three-step command, attention span is very short appears to be responding to internal stimuli but when asked he denies having any visual or auditory hallucinations. 05/25/2019. As per primary nurse patient has been intermittent hallucination and agitation otherwise no acute events overnight, on my encounter patient is resting comfortably in bed in no apparent distress, he is alert and oriented x3, cooperative with physical examination, attention span improving, does not recall any events leading to this hospitalization, denies any fever, chills, nausea, vomiting, diarrhea, constipation or any urinary symptoms. Reason For Visit: DIPHENHYDRAMINE OVERDOSE Physical Exam Vital Signs: Temp Pulse Resp BP Pulse Ox 98.4 F 94 17 129/93 H 100 05/25/19 07:59 05/25/19 07:59 05/25/19 07:59 05/25/19 07:59 05/25/19 07:59 Intake & Output 05/24/19 05/25/19 05/26/19 06:59 06:59 06:59 Intake Total 1050 Output Total 375 Balance 675 Weight 61.8 kg General appearance: PRESENT: no acute distress, well-developed, well-nourished Head exam: PRESENT: atraumatic, normocephalic Eye exam: PRESENT: EOMI, PERRLA - Bilateral mydriasis. Respiratory exam: PRESENT: clear to auscultation jin. ABSENT: rales, rhonchi, wheezes Cardiovascular exam: PRESENT: RRR, tachycardia. ABSENT: diastolic murmur, rubs, systolic murmur GI/Abdominal exam: PRESENT: normal bowel sounds, soft. ABSENT: distended, guarding, mass, organolmegaly, rebound, tenderness Neurological exam: PRESENT: alert, awake, oriented to person, oriented to place, oriented to time, oriented to situation, CN II-XII grossly intact - Bilateral mydriasis.. ABSENT: motor sensory deficit Skin exam: PRESENT: dry, intact, warm. ABSENT: cyanosis, rash Results Laboratory Results: 05/25/19 06:03 05/25/19 06:03 05/24/19 05/24/19 05/24/19 14:58 14:58 18:13 WBC 21.3 H RBC 4.86 Hgb 15.1 Hct 42.4 MCV 87 MCH 31.2 MCHC 35.7 RDW 13.9 Plt Count 345 Seg Neutrophils % Not Reportable Sodium 145.1 H Potassium 3.0 L* Chloride 101 Carbon Dioxide 24 Anion Gap 20 H BUN 11 Creatinine 1.24 Est GFR ( Amer) > 60 Glucose 113 H Calcium 9.9 Magnesium Total Bilirubin 0.7 AST 18 Alkaline Phosphatase 71 Total Protein 8.5 H Albumin 4.9 Urine Color YELLOW Urine Appearance CLEAR Urine pH 6.0 Ur Specific [place] 1.021 Urine Protein 100 H Urine Glucose (UA) NEGATIVE Urine Ketones TRACE H Urine Blood NEGATIVE Urine Nitrite NEGATIVE Ur Leukocyte Esterase NEGATIVE Urine WBC (Auto) 3 Urine RBC (Auto) 1 05/25/19 05/25/19 06:03 06:03 WBC 9.4 RBC 4.14 L Hgb 12.9 L D Hct 36.2 L MCV 87 MCH 31.1 MCHC 35.6 RDW 13.6 Plt Count 257 Seg Neutrophils % 73.3 Sodium 143.9 Potassium 3.8 Chloride 94 L Carbon Dioxide 41 H* D Anion Gap 9 BUN 10 Creatinine 0.92 Est GFR ( Amer) > 60 Glucose 304 H Calcium 8.8 Magnesium 2.0 Total Bilirubin 1.1 AST 28 Alkaline Phosphatase 47 Total Protein 6.5 Albumin 3.6 Urine Color Urine Appearance Urine pH Ur Specific [place] Urine Protein Urine Glucose (UA) Urine Ketones Urine Blood Urine Nitrite Ur Leukocyte Esterase Urine WBC (Auto) Urine RBC (Auto) Assessment and Plan - Diagnosis (1) Intentional diphenhydramine overdose Qualifiers: Encounter type: initial encounter Qualified Code(s): T45.0X2A - Poisoning by antiallergic and antiemetic drugs, intentional self-harm, initial encounter Is this a current diagnosis for this admission?: Yes Plan: Stable. Intermittent hallucination and agitation. Continue IMCU. Monitor vitals. Monitor for urinary retention. Scheduled low-dose benzos and as needed. Implement seizure, fall and aspiration precautions. Avoid any drugs with anticholinergic activity. Consider anticholinesterase inhibitors such as physostigmine if no improvement. (2) Acute anoxic encephalopathy Is this a current diagnosis for this admission?: Yes Plan: Improving. Alert and oriented x3. Intermittent hallucination and agitation. Acute toxic metabolic encephalopathy. Due to drug overdose. Plan as per #1. (3) Hallucinations Is this a current diagnosis for this admission?: Yes Plan: Due to anticholinergic toxicity. Plan as per #1. (4) Overdose Qualifiers: Encounter type: initial encounter Injury intent: intentional self-harm Qualified Code(s): T50.902A - Poisoning by unspecified drugs, medicaments and biological substances, intentional self-harm, initial encounter Is this a current diagnosis for this admission?: Yes Plan: Intentional drug overdose. Suicidal ideation. Psychiatry consulted. Currently patient IVC. Follow-up recommendations. (5) History of paroxysmal supraventricular tachycardia Is this a current diagnosis for this admission?: Yes Plan: As per patient he has history of SVT and has had several ablations in the past. Denies any CAD, denies any chest pain. Takes pindolol 10 mg p.o. daily at home. Unfortunately pharmacy does not carry pindolol at this point. Continue metoprolol. Cardiology consulted. Follow-up recommendation. (6) History of seizure Is this a current diagnosis for this admission?: Yes Plan: As per patient he has history of seizure but has not seized for several years and does not take any medication for now. Implement seizure precautions. Benzos as needed for seizure.
[2019-05-25] MEDS: NORMAL SALINE 1000 ML 1,000 ML IV PRN (15:00)
--- NOTE | 2019-05-25 18:08 | PSYCHOLOGICAL NOTE ---
Psych Note - Psych Note Date seen by psych provider: 05/25/19 Time seen by psych provider: 18:30 Psych Note: Reason For Consult: Intentional overdose Per nurse report, patient was placed in soft restraints due to aggressive behaviors. He demonstrates disorganized thought processes with flight of ideas. Patient appeared drowsy/groggy, and was unable to engage in any organized and linear conversations. Clinician spoke with patient's who discloses that they are currently going through a separation. She reports that the patient is not handling this well and is in "shock." She discloses that she has stated to him in the past that she was going to leave however this time she has actually follow through. She reports that today she signed the lease over into just her name and removed him. She continued to report that May 02 they went home to visit family and had to pretend that everything was okay as no one in the family knows what was going on. When they came back on the the patient threatened to overdose however did not take any actions. She disclosed on Saturday the he became upset again about their separation and did take Benadryl and seemed to be hallucinating however was not anywhere near having difficulties like he is today. She disclosed that today while she was at [employer] he texted her that he was sorry and that he loved her. When she came home it was very clear that he had done something. She reports that the patient [facility], anxiety and depression. He is supposed to take Zoloft however does not take it. The patient was taking Ambien in the past to help sleep however became violent when sleepwalking so does not take it anymore. She reports he typically takes 5 Benadryl to sleep a night. Diagnosis: Intentional Overdose Medication recommendations per [facility]'s contracted psychiatrist Dr. Marycarmen KEMP are as follows pending Impression\\plan:Patient is recommended for continued IVC. Patient's status has not changed. Patient will be re-evaluated. Dr. Caicedo was consulted to care management of this patient; attending physicians in agreement with recommendations and disposition.
--- NOTE | 2019-05-25 18:49 | EKG REPORT ---
SEVERITY:- BORDERLINE ECG - SINUS RHYTHM BORDERLINE T ABNORMALITIES, ANT-LAT LEADS BORDERLINE PROLONGED QT INTERVAL : Confirmed by: Tomi Hammond MD 25-May-2019 18:49:06
[2019-05-25] MEDS: TEMAZEPAM 7.5 MG CAPSULE PO PRN (21:39)
[2019-05-26] MEDS: LORAZEPAM INJ 2 MG/1 ML VIAL IV SCH ×6 (02:02→22:48)
[2019-05-26] MEDS: NORMAL SALINE 1000 ML 1,000 ML IV PRN ×3 (02:05→22:45)
[2019-05-26] MEDS: HEPARIN SOD (PORCINE) 5,000 UNIT/ML 1 ML VIAL SUBCUT SCH ×3 (05:19→22:43)
--- NOTE | 2019-05-26 09:13 | PDOC PROGRESS REPORT ---
Subjective Progress Note for:: 05/26/19 Subjective:: ABDULAZIZ GAMBOA is a 34 year old male who presented to ED after intentional diphenhydramine overdose. As per ED physician's note patient been having having relational problems with his who around 1:15 supposedly took an unknown quantity of 25 mg tablets of Benadryl. Patient states he was recently purchased bottle. He believes he had around 90 tablets in the bottle. Patient takes it only for sleep at night. There were 2 tablets left by EMS. EMS provided activated charcoal. He was having some visual hallucinations. Patient denies any pain at this time. He states he was very upset and attempted to kill himself. History as recorded medically. Patient states he last drank alcohol 2 weeks ago. On my encounter no family at the bedside, patient is awake, alert, but unfortunately only oriented to self, does not follow three-step command, attention span is very short appears to be responding to internal stimuli but when asked he denies having any visual or auditory hallucinations. 05/25/2019. As per primary nurse patient has been intermittent hallucination and agitation otherwise no acute events overnight, on my encounter patient is resting comfortably in bed in no apparent distress, he is alert and oriented x3, cooperative with physical examination, attention span improving, does not recall any events leading to this hospitalization, denies any fever, chills, nausea, vomiting, diarrhea, constipation or any urinary symptoms. 05/26/2019. As per primary nurse overnight patient has been hallucinating and been agitated admittedly. On my encounter patient is sleeping comfortably, easily arousable, alert and oriented x2, denies any visual or auditory hallucinations. Does not appear to be in apparent distress. Does not remember anything leading to this hospitalization. Denies any fever, chills, nausea, vomiting, diarrhea, constipation or any urinary symptoms Reason For Visit: DIPHENHYDRAMINE OVERDOSE Physical Exam Vital Signs: Temp Pulse Resp BP Pulse Ox 97.5 F 79 18 125/84 99 05/26/19 07:38 05/26/19 07:38 05/26/19 07:38 05/26/19 07:38 05/26/19 07:38 Intake & Output 05/25/19 05/26/19 05/27/19 06:59 06:59 06:59 Intake Total 1050 3340 Output Total 375 2050 Balance 675 1290 Weight 61.8 kg 64.2 kg General appearance: PRESENT: no acute distress, well-developed, well-nourished Head exam: PRESENT: atraumatic, normocephalic Eye exam: PRESENT: EOMI, PERRLA - Bilateral mydriasis. Respiratory exam: PRESENT: accessory muscle use Cardiovascular exam: PRESENT: RRR. ABSENT: diastolic murmur, rubs, systolic murmur GI/Abdominal exam: PRESENT: normal bowel sounds, soft. ABSENT: distended, guarding, mass, organolmegaly, rebound, tenderness Neurological exam: PRESENT: alert, awake, oriented to person, oriented to place, CN II-XII grossly intact. ABSENT: motor sensory deficit Results Laboratory Results: 05/25/19 06:03 05/25/19 06:03 Assessment and Plan - Diagnosis (1) Intentional diphenhydramine overdose Qualifiers: Encounter type: initial encounter Qualified Code(s): T45.0X2A - Poisoning by antiallergic and antiemetic drugs, intentional self-harm, initial encounter Is this a current diagnosis for this admission?: Yes Plan: Stable. Intermittent hallucination and agitation. Continue IMCU. Monitor vitals. Monitor for urinary retention. Scheduled low-dose benzos and as needed. Implement seizure, fall and aspiration precautions. Avoid any drugs with anticholinergic activity. Consider anticholinesterase inhibitors such as physostigmine if no improvement. (2) Acute anoxic encephalopathy Is this a current diagnosis for this admission?: Yes Plan: Improving. Alert and oriented x2. Intermittent hallucination and agitation. Acute toxic metabolic encephalopathy. Due to drug overdose. Plan as per #1. (3) Hallucinations Is this a current diagnosis for this admission?: Yes Plan: Due to anticholinergic toxicity. Plan as per #1. (4) Overdose Qualifiers: Encounter type: initial encounter Injury intent: intentional self-harm Qualified Code(s): T50.902A - Poisoning by unspecified drugs, medicaments and biological substances, intentional self-harm, initial encounter Is this a current diagnosis for this admission?: Yes Plan: Intentional drug overdose. Suicidal ideation. Psychiatry consulted. Currently patient IVC. Follow-up recommendations. (5) History of paroxysmal supraventricular tachycardia Is this a current diagnosis for this admission?: Yes Plan: Sinus rhythm. As per patient he has history of SVT and has had several ablations in the past. Denies any CAD, denies any chest pain. Takes pindolol 10 mg p.o. daily at home. Unfortunately pharmacy does not carry pindolol at this point. Continue metoprolol. Cardiology consulted. Follow-up recommendation. (6) History of seizure Is this a current diagnosis for this admission?: Yes Plan: As per patient he has history of seizure but has not seized for several years and does not take any medication for now. Implement seizure precautions. Benzos as needed for seizure.
--- NOTE | 2019-05-26 14:34 | RADIOLOGY REPORT (SQ) ---
EXAM DESCRIPTION: CHEST SINGLE VIEW COMPLETED DATE/TIME: 05/26/2019 2:24 pm REASON FOR STUDY: FEVER COMPARISON: 07/09/2018 EXAM PARAMETERS: NUMBER OF VIEWS: One view. TECHNIQUE: Single frontal radiographic view of the chest acquired. RADIATION DOSE: NA LIMITATIONS: None. FINDINGS: LUNGS AND PLEURA: No opacities, masses or pneumothorax. No pleural effusion. MEDIASTINUM AND HILAR STRUCTURES: No masses. Contour normal. HEART AND VASCULAR STRUCTURES: Heart normal in size. Normal vasculature. BONES: No acute findings. HARDWARE: Bone anchor overlies right proximal humerus. OTHER: No other significant finding. IMPRESSION: NO ACUTE RADIOGRAPHIC FINDING IN THE CHEST. TECHNICAL DOCUMENTATION: JOB ID: [id number] [employer]- All Rights Reserved Reading location - IP/workstation name: [email or web address]
[2019-05-26 15:32] LABS: CREATINE KINASE MB 2.55 ng/mL (<4.55)
[2019-05-26 15:36] LABS: TROPONIN I < 0.012 ng/mL
[2019-05-26] MEDS ORDERED: MAGNESIUM HYDROXIDE SUSP 30 ML UDCUP PO PRN (16:27)
--- NOTE | 2019-05-26 19:16 | EKG REPORT ---
SEVERITY:- BORDERLINE ECG - SINUS RHYTHM BORDERLINE T WAVE ABNORMALITIES : Confirmed by: Tomi Hammond MD 26-May-2019 19:16:05
[2019-05-26 21:06] LABS: CREATINE KINASE MB 2.35 ng/mL (<4.55)
[2019-05-26 21:11] LABS: TROPONIN I < 0.012 ng/mL
[2019-05-27 02:31] LABS: CREATINE KINASE MB 1.69 ng/mL (<4.55)
[2019-05-27 02:34] LABS: TROPONIN I < 0.012 ng/mL
[2019-05-27] MEDS: LORAZEPAM INJ 2 MG/1 ML VIAL IV SCH ×6 (03:02→21:09)
[2019-05-27] MEDS: HEPARIN SOD (PORCINE) 5,000 UNIT/ML 1 ML VIAL SUBCUT SCH ×3 (05:26→22:21)
[2019-05-27] MEDS: NORMAL SALINE 1000 ML 1,000 ML IV PRN ×2 (09:08→18:37)
--- NOTE | 2019-05-27 10:25 | PDOC PROGRESS REPORT ---
Subjective Progress Note for:: 05/27/19 Subjective:: ABDULAZIZ GAMBOA is a 34 year old male who presented to ED after intentional diphenhydramine overdose. As per ED physician's note patient been having having relational problems with his who around 1:15 supposedly took an unknown quantity of 25 mg tablets of Benadryl. Patient states he was recently purchased bottle. He believes he had around 90 tablets in the bottle. Patient takes it only for sleep at night. There were 2 tablets left by EMS. EMS provided activated charcoal. He was having some visual hallucinations. Patient denies any pain at this time. He states he was very upset and attempted to kill himself. History as recorded medically. Patient states he last drank alcohol 2 weeks ago. On my encounter no family at the bedside, patient is awake, alert, but unfortunately only oriented to self, does not follow three-step command, attention span is very short appears to be responding to internal stimuli but when asked he denies having any visual or auditory hallucinations. 05/25/2019. As per primary nurse patient has been intermittent hallucination and agitation otherwise no acute events overnight, on my encounter patient is resting comfortably in bed in no apparent distress, he is alert and oriented x3, cooperative with physical examination, attention span improving, does not recall any events leading to this hospitalization, denies any fever, chills, nausea, vomiting, diarrhea, constipation or any urinary symptoms. 05/26/2019. As per primary nurse overnight patient has been hallucinating and been agitated admittedly. On my encounter patient is sleeping comfortably, easily arousable, alert and oriented x2, denies any visual or auditory hallucinations. Does not appear to be in apparent distress. Does not remember anything leading to this hospitalization. Denies any fever, chills, nausea, vomiting, diarrhea, constipation or any urinary symptoms 05/27/2019. No acute events overnight. Overnight patient was found to be mildly confused, has not had any auditory visual hallucination. This morning patient is comfortably comfortably sleeping, easily arousable, stating that he feels tired, alert and oriented x3. Denies any visual or auditory hallucinations. Reason For Visit: DIPHENHYDRAMINE OVERDOSE Physical Exam Vital Signs: Temp Pulse Resp BP Pulse Ox 97.9 F 82 16 121/86 H 98 05/27/19 08:00 05/27/19 08:00 05/27/19 08:00 05/27/19 08:00 05/27/19 08:00 Intake & Output 05/26/19 05/27/19 05/28/19 06:59 06:59 06:59 Intake Total 3340 3060 1000 Output Total 2050 2750 Balance 8795 391 4398 Weight 64.2 kg 62.8 kg General appearance: PRESENT: no acute distress, well-developed, well-nourished Head exam: PRESENT: atraumatic, normocephalic Respiratory exam: PRESENT: clear to auscultation jin. ABSENT: rales, rhonchi, wheezes Cardiovascular exam: PRESENT: RRR. ABSENT: diastolic murmur, rubs, systolic murmur GI/Abdominal exam: PRESENT: normal bowel sounds, soft. ABSENT: distended, guarding, mass, organolmegaly, rebound, tenderness Neurological exam: PRESENT: alert, awake, oriented to person, oriented to place, CN II-XII grossly intact. ABSENT: motor sensory deficit Results Laboratory Results: 05/25/19 06:03 05/25/19 06:03 05/26/19 05/26/19 05/26/19 14:34 14:34 20:00 Creatine Kinase 547 H 430 H CK-MB (CK-2) 2.55 Troponin I < 0.012 05/26/19 05/27/19 05/27/19 20:00 01:48 01:48 Creatine Kinase 308 H CK-MB (CK-2) 2.35 1.69 Troponin I < 0.012 < 0.012 Impressions: Chest X-Ray 05/26/19 00:00 IMPRESSION: NO ACUTE RADIOGRAPHIC FINDING IN THE CHEST. Assessment and Plan - Diagnosis (1) Intentional diphenhydramine overdose Qualifiers: Encounter type: initial encounter Qualified Code(s): T45.0X2A - Poisoning by antiallergic and antiemetic drugs, intentional self-harm, initial encounter Is this a current diagnosis for this admission?: Yes Plan: Hallucinations have resolved. Complaining of being tired. Continue IMCU. Monitor vitals. Monitor for urinary retention. Scheduled low-dose benzos and as needed. Implement seizure, fall and aspiration precautions. Avoid any drugs with anticholinergic activity. Consider anticholinesterase inhibitors such as physostigmine if no improvement. (2) Acute anoxic encephalopathy Is this a current diagnosis for this admission?: Yes Plan: Improving. Alert and oriented x2. Intermittent hallucination and agitation. Acute toxic metabolic encephalopathy. Due to drug overdose. Plan as per #1. (3) Hallucinations Is this a current diagnosis for this admission?: Yes Plan: Due to anticholinergic toxicity. Plan as per #1. (4) Overdose Qualifiers: Encounter type: initial encounter Injury intent: intentional self-harm Qualified Code(s): T50.902A - Poisoning by unspecified drugs, medicaments and biological substances, intentional self-harm, initial encounter Is this a current diagnosis for this admission?: Yes Plan: Intentional drug overdose. Suicidal ideation. Psychiatry consulted. Currently patient IVC. Follow-up recommendations. (5) History of paroxysmal supraventricular tachycardia Is this a current diagnosis for this admission?: Yes Plan: Sinus rhythm. As per patient he has history of SVT and has had several ablations in the past. Denies any CAD, denies any chest pain. Takes pindolol 10 mg p.o. daily at home. Unfortunately pharmacy does not carry pindolol at this point. Continue metoprolol. Cardiology consulted. Follow-up recommendation. (6) History of seizure Is this a current diagnosis for this admission?: Yes Plan: As per patient he has history of seizure but has not seized for several years and does not take any medication for now. Implement seizure precautions. Benzos as needed for seizure.
[2019-05-27] MEDS: ACETAMINOPHEN 325 MG TABLET PO PRN ×2 (11:52→22:23)
[2019-05-27] MEDS: OXYCODONE-ACETAMINOPHEN 5-325 MG TABLET PO PRN (17:18)
[2019-05-27] MEDS: TEMAZEPAM 7.5 MG CAPSULE PO PRN (22:23)
[2019-05-28] MEDS: LORAZEPAM INJ 2 MG/1 ML VIAL IV SCH ×6 (02:09→21:38)
[2019-05-28] MEDS: HEPARIN SOD (PORCINE) 5,000 UNIT/ML 1 ML VIAL SUBCUT SCH ×3 (05:10→21:35)
[2019-05-28] MEDS: OXYCODONE-ACETAMINOPHEN 5-325 MG TABLET PO PRN (10:49)
[2019-05-28] MEDS: ACETAMINOPHEN 325 MG TABLET PO PRN (10:49)
[2019-05-28] MEDS: DEXTROSE 5%-NORMAL SALINE 1,000 ML IV PRN ×2 (17:29→18:33)
[2019-05-28] MEDS: DIAZEPAM INJ 10 MG/2 ML DISP.SYRIN IV PRN (18:33)
[2019-05-28] MEDS: VALPROATE SODIUM SYRUP 250 MG/5 ML UDCUP PO SCH (18:44)
[2019-05-29] MEDS: LORAZEPAM INJ 2 MG/1 ML VIAL IV SCH ×4 (02:01→13:36)
[2019-05-29] MEDS: DEXTROSE 5%-NORMAL SALINE 1,000 ML IV PRN (04:10)
[2019-05-29] MEDS: VALPROATE SODIUM SYRUP 250 MG/5 ML UDCUP PO SCH ×2 (05:45→18:06)
[2019-05-29] MEDS: HEPARIN SOD (PORCINE) 5,000 UNIT/ML 1 ML VIAL SUBCUT SCH ×3 (05:45→21:11)
[2019-05-29 09:32] LABS: ALBUMIN 3.7 g/dL (3.5-5.0); ALKALINE PHOSPHATASE 49 U/L (38-126); ANION GAP 9 (5-19); ASPARTATE AMINO TRANSFERASE 16 U/L (17-59); BILIRUBIN,DIRECT 0.1 mg/dL (0.0-0.4); BILIRUBIN,TOTAL 0.7 mg/dL (0.2-1.3); BLOOD UREA NITROGEN 6 mg/dL (7-20); CALCIUM 9.1 mg/dL (8.4-10.2); CARBON DIOXIDE 28 mmol/L (22-30); CHLORIDE 104 mmol/L (98-107); GLUCOSE 99 mg/dL (75-110); POTASSIUM 3.4 mmol/L (3.6-5.0); TOTAL PROTEIN 6.6 g/dL (6.3-8.2)
--- NOTE | 2019-05-29 10:27 | PDOC PROGRESS REPORT ---
Subjective Progress Note for:: 05/29/19 Subjective:: 34 year old male who presented to ED after intentional diphenhydramine overdose. As per ED physician's note patient been having having relational problems with his who around 1:15 supposedly took an unknown quantity of 25 mg tablets of Benadryl. Patient states he was recently purchased bottle. He believes he had around 90 tablets in the bottle. Patient takes it only for sleep at night. There were 2 tablets left by EMS. EMS provided activated charcoal. He was having some visual hallucinations. Patient denies any pain at this time. He states he was very upset and attempted to kill himself. History as recorded medically. Patient states he last drank alcohol 2 weeks ago. On my encounter no family at the bedside, patient is awake, alert, but unf ortunately only oriented to self, does not follow three-step command, attention span is very short appears to be responding to internal stimuli but when asked he denies having any visual or auditory hallucinations. 05/25/2019. As per primary nurse patient has been intermittent hallucination and agitation otherwise no acute events overnight, on my encounter patient is resting comfortably in bed in no apparent distress, he is alert and oriented x3, cooperative with physical examination, attention span improving, does not recall any events leading to this hospitalization, denies any fever, chills, nausea, vomiting, diarrhea, constipation or any urinary symptoms. 05/26/2019. As per primary nurse overnight patient has been hallucinating and been agitated admittedly. On my encounter patient is sleeping comfortably, easily arousable, alert and oriented x2, denies any visual or auditory kaylynn lucinations. Does not appear to be in apparent distress. Does not remember anything leading to this hospitalization. Denies any fever, chills, nausea, vomiting, diarrhea, constipation or any urinary symptoms 05/27/2019. No acute events overnight. Overnight patient was found to be mildly confused, has not had any auditory visual hallucination. This morning patient is comfortably comfortably sleeping, easily arousable, stating that he feels tired, alert and oriented x3. Denies any visual or auditory hallucinations. 05/29/2019 patient try to swallow backslash of bread try to choke himself so he was kept n.p.o. from last night. And he is also on mittens he is on a soft restraints because he pulled out all the IV lines last night. This morning patient is comfortably in the bed not in distress. Reason For Visit: DIPHENHYDRAMINE OVERDOSE Physical Exam Vital Signs: Temp Pulse Resp BP Pulse Ox 97.9 F 80 18 113/76 100 05/29/19 07:49 05/29/19 07:49 05/29/19 07:49 05/29/19 07:49 05/29/19 07:49 Intake & Output 05/28/19 05/29/19 05/30/19 06:59 06:59 06:59 Intake Total 19474 Output Total 2084 2074 Balance -137 189 Weight 64.9 kg 63 kg General appearance: PRESENT: no acute distress, thin Head exam: PRESENT: atraumatic Eye exam: PRESENT: PERRLA Mouth exam: PRESENT: dry mucosa Neck exam: ABSENT: carotid bruit, JVD, lymphadenopathy, thyromegaly Respiratory exam: PRESENT: clear to auscultation jin. ABSENT: rales, rhonchi, wheezes Cardiovascular exam: PRESENT: RRR. ABSENT: diastolic murmur, rubs, systolic murmur GI/Abdominal exam: PRESENT: normal bowel sounds, soft. ABSENT: distended, guarding, mass, organolmegaly, rebound, tenderness Rectal exam: PRESENT: deferred Extremities exam: PRESENT: full ROM. ABSENT: calf tenderness, clubbing, pedal edema Neurological exam: PRESENT: alert, awake, oriented to person, oriented to place, oriented to time, oriented to situation, CN II-XII grossly intact. ABSENT: motor sensory deficit Results Laboratory Results: 05/25/19 06:03 05/29/19 08:46 05/29/19 08:46 Sodium 140.8 Potassium 3.4 L Chloride 104 Carbon Dioxide 28 Anion Gap 9 BUN 6 L Creatinine 0.86 Est GFR ( Amer) > 60 Glucose 99 Calcium 9.1 Total Bilirubin 0.7 AST 16 L Alkaline Phosphatase 49 Total Protein 6.6 Albumin 3.7 05/26/19 05/26/19 05/26/19 14:34 14:34 20:00 Creatine Kinase 547 H 430 H CK-MB (CK-2) 2.55 Troponin I < 0.012 05/26/19 05/27/19 05/27/19 20:00 01:48 01:48 Creatine Kinase 308 H CK-MB (CK-2) 2.35 1.69 Troponin I < 0.012 < 0.012 Impressions: Chest X-Ray 05/26/19 00:00 IMPRESSION: NO ACUTE RADIOGRAPHIC FINDING IN THE CHEST. Assessment and Plan - Diagnosis (1) Intentional diphenhydramine overdose Qualifiers: Encounter type: initial encounter Qualified Code(s): T45.0X2A - Poisoning by antiallergic and antiemetic drugs, intentional self-harm, initial encounter Is this a current diagnosis for this admission?: Yes Plan: Hallucinations have resolved. Complaining of being tired. Continue IMCU. Monitor vitals. Monitor for urinary retention. Scheduled low-dose benzos and as needed. Implement seizure, fall and aspiration precautions. Avoid any drugs with anticholinergic activity. Consider anticholinesterase inhibitors such as physostigmine if no improvement. 1 [id number] male admitted with hallucinations most likely secondary to intentional diphenhydramine overdose last night patient was agitated and attempted to choke himself on the diet he is n.p.o. for now psych is on board. He is in mittens and in soft restraints. Is to continue psychiatric recommendations. (2) Acute anoxic encephalopathy Is this a current diagnosis for this admission?: Yes Plan: Resolved. Alert and oriented x3. Denies any auditory on visual hallucinations. This was most likely due to acute toxic metabolic encephalopathy. Due to drug overdose. Plan as per #1. 05/29/2019 acute anoxic enkephalin but these resolved. Patient is alert awake oriented communicating well. (3) Hallucinations Is this a current diagnosis for this admission?: Yes Plan: Resolved. Due to anticholinergic toxicity. Plan as per above. (4) Overdose Qualifiers: Encounter type: initial encounter Injury intent: intentional self-harm Qualified Code(s): T50.902A - Poisoning by unspecified drugs, medicaments and biological substances, intentional self-harm, initial encounter Is this a current diagnosis for this admission?: Yes Plan: Intentional drug overdose. Suicidal ideation. Psychiatry consulted. Currently patient IVC. Follow-up recommendations. (5) History of paroxysmal supraventricular tachycardia Is this a current diagnosis for this admission?: Yes Plan: Sinus rhythm. As per patient he has history of SVT and has had several ablations in the past. Denies any CAD, denies any chest pain. Takes pindolol 10 mg p.o. daily at home. Unfortunately pharmacy does not carry pindolol at this point. Continue metoprolol. Cardiology consulted. Follow-up recommendation. (6) History of seizure Is this a current diagnosis for this admission?: No Plan: As per patient he has history of seizure but has not seized for several years and does not take any medication for now. Has not had any seizures on this admission. Implement seizure precautions. Benzos as needed for seizure.
[2019-05-29] MEDS: DIAZEPAM INJ 10 MG/2 ML DISP.SYRIN IV PRN (13:35)
[2019-05-29] MEDS ORDERED: ZIPRASIDONE MESYLATE INJ/PF 20 MG SDV IM ONE (15:15)
--- NOTE | 2019-05-29 15:32 | PSYCHOLOGICAL NOTE ---
Psych Note - Psych Note Date seen by psych provider: 05/29/19 Time seen by psych provider: 13:50 Psych Note: Reason For Consult: Intentional overdose Per nurse report, patient was placed in soft restraints and mittens due to aggressive/self harming behaviors. He demonstrates disorganized thought processes with flight of ideas. Patient appeared drowsy/groggy, and was unable to engage in any organized and linear conversations. Clinician spoke with patient's who discloses that they are currently going through a separation. Patient's states that he had a heart attack on the drill field. Furthermore, xuan was in a coma 3-4 years ago after an "acciden bing overdose" on Triazolam and morphine. Patient became addicted to opioids after being prescribed keno terminal operator for kidney stones and knee surgeries. Patient was emotional and not able to engage with clinician. Diagnosis: Intentional Overdose Medication recommendations per [facility]'s contracted psychiatrist Dr. Marycarmen KEMP are as follows DISCONTINUE ALL BENZODAZEPINES Add Thorazine 50MG, every 6 hours as needed Impression\\plan:Patient is recommended for continued IVC. Patient's status has not changed. Patient will be re-evaluated. Dr. Caicedo was consulted to care management of this patient; attending physicians in agreement with recommendations and disposition.
[2019-05-29] MEDS ORDERED: DIAZEPAM INJ 10 MG/2 ML DISP.SYRIN IM PRN (16:00)
[2019-05-29] MEDS ORDERED: ONDANSETRON HCL INJ/PF 4 MG/2 ML SDV IM PRN (16:00)
[2019-05-29] MEDS ORDERED: LORAZEPAM INJ 2 MG/1 ML VIAL IM SCH (18:00)
--- NOTE | 2019-05-29 19:47 | PDOC CONSULTATION ---
Consultation-Blank Consultation: Spoke with Dr. Mascorro regarding medication recommendations from consulting psychiatrist. Recommendations are based on patient's current aggressive and / self harming behavior and previously diagnosed anoxic encephalopoly. Once patient's behavior is better control then mood stabilization medications can be added. Medication recommendations are as follows: 1. Discontinue Ativan 2. Discontinue Diazepam 3. Add Thorazine every 6 hours IM as needed 4. Add Clonidine 0.1 mg every 12 hours as needed. 5. Continue Depakene at 250 mg twice per day. Please contact the behavioral health office at [phone] for questions regarding this recommendation.
[2019-05-29] MEDS: CLONIDINE HCL 0.2 MG TABLET PO SCH (20:04)
[2019-05-29] MEDS: CHLORPROMAZINE HCL 50 MG TABLET PO SCH (20:04)
[2019-05-29] MEDS: OXYCODONE-ACETAMINOPHEN 5-325 MG TABLET PO PRN (21:05)
[2019-05-29] MEDS: TEMAZEPAM 7.5 MG CAPSULE PO PRN (21:06)
[2019-05-30 05:28] LABS: ABSOLUTE BASOPHILS # (AUTO) 0.1 10^3/uL (0.0-0.2); ABSOLUTE EOSINOPHILS # (AUTO) 0.3 10^3/uL (0.0-0.6); ABSOLUTE LYMPHOCYTES (AUTO) 2.1 10^3/uL (0.5-4.7); ABSOLUTE MONOCYTES (AUTO) 0.5 10^3/uL (0.1-1.4); ABSOLUTE NEUT (AUTO) 3.1 10^3/uL (1.7-8.2); BASOPHILS % (AUTO) 0.9 % (0-2); EOSINOPHILS % (AUTO) 4.4 % (0-6); HEMATOCRIT 35.6 % (37.9-51.0); HEMOGLOBIN 12.9 g/dL (13.5-17.0); LYMPHOCYTES % (AUTO) 34.7 % (13-45); MEAN CORPUSCULAR HEMOGLOBIN 31.1 pg (27.0-33.4); MEAN CORPUSCULAR HGB CONC 36.1 g/dL (32.0-36.0); MEAN CORPUSCULAR VOLUME 86 fl (80-97); MONOCYTES % (AUTO) 7.9 % (3-13); PLATELET COUNT 251 10^3/uL (150-450); RED BLOOD COUNT 4.13 10^6/uL (4.35-5.55); RED CELL DISTRIBUTION WIDTH 13.5 % (11.5-14.0); SEGMENTED NEUTROPHILS % (AUTO) 52.1 % (42-78); TOTAL CELLS COUNTED % (AUTO) 100 %; WHITE BLOOD COUNT 5.9 10^3/uL (4.0-10.5)
[2019-05-30] MEDS: CHLORPROMAZINE HCL 50 MG TABLET PO SCH ×3 (05:42→21:09)
[2019-05-30] MEDS: VALPROATE SODIUM SYRUP 250 MG/5 ML UDCUP PO SCH ×2 (05:42→17:35)
[2019-05-30] MEDS: CLONIDINE HCL 0.2 MG TABLET PO SCH ×3 (05:46→21:10)
[2019-05-30] MEDS: HEPARIN SOD (PORCINE) 5,000 UNIT/ML 1 ML VIAL SUBCUT SCH ×3 (05:49→21:09)
--- NOTE | 2019-05-30 09:15 | PDOC PROGRESS REPORT ---
Subjective Progress Note for:: 05/30/19 Subjective:: 34 year old male who presented to ED after intentional diphenhydramine overdose. As per ED physician's note patient been having having relational problems with his who around 1:15 supposedly took an unknown quantity of 25 mg tablets of Benadryl. Patient states he was recently purchased bottle. He believes he had around 90 tablets in the bottle. Patient takes it only for sleep at night. There were 2 tablets left by EMS. EMS provided activated charcoal. He was having some visual hallucinations. Patient denies any pain at this time. He states he was very upset and attempted to kill himself. History as recorded medically. Patient states he last drank alcohol 2 weeks ago. On my encounter no family at the bedside, patient is awake, alert, but unf ortunately only oriented to self, does not follow three-step command, attention span is very short appears to be responding to internal stimuli but when asked he denies having any visual or auditory hallucinations. 05/25/2019. As per primary nurse patient has been intermittent hallucination and agitation otherwise no acute events overnight, on my encounter patient is resting comfortably in bed in no apparent distress, he is alert and oriented x3, cooperative with physical examination, attention span improving, does not recall any events leading to this hospitalization, denies any fever, chills, nausea, vomiting, diarrhea, constipation or any urinary symptoms. 05/26/2019. As per primary nurse overnight patient has been hallucinating and been agitated admittedly. On my encounter patient is sleeping comfortably, easily arousable, alert and oriented x2, denies any visual or auditory kaylynn lucinations. Does not appear to be in apparent distress. Does not remember anything leading to this hospitalization. Denies any fever, chills, nausea, vomiting, diarrhea, constipation or any urinary symptoms 05/27/2019. No acute events overnight. Overnight patient was found to be mildly confused, has not had any auditory visual hallucination. This morning patient is comfortably comfortably sleeping, easily arousable, stating that he feels tired, alert and oriented x3. Denies any visual or auditory hallucinations. 05/29/2019 patient try to swallow large piece of bread try to choke himself so he was kept n.p.o. from last night. And he is also on mittens he is on a soft restraints because he pulled out all the IV lines last night. This morning patient is comfortably in the bed not in distress. 05/30/2019-patient was started on Thorazine and clonidine, Ativan and diazepam are discontinued as per psych recommendations. He still under IVC. Patient is medically cleared to go to psychiatric facility. Reason For Visit: DIPHENHYDRAMINE OVERDOSE Physical Exam Vital Signs: Temp Pulse Resp BP Pulse Ox 97.4 F 67 14 86/51 L 98 05/29/19 23:59 05/30/19 07:00 05/30/19 03:21 05/30/19 03:21 05/30/19 03:21 Intake & Output 05/29/19 05/30/19 05/31/19 06:59 06:59 06:59 Intake Total 2264 974 Output Total 1415 2275 Balance 189 -1301 Weight 63 kg 59.7 kg General appearance: PRESENT: no acute distress, well-developed, well-nourished Head exam: PRESENT: atraumatic Eye exam: PRESENT: PERRLA Mouth exam: PRESENT: dry mucosa Teeth exam: PRESENT: poor dentation Neck exam: ABSENT: carotid bruit, JVD, lymphadenopathy, thyromegaly Respiratory exam: PRESENT: clear to auscultation jin. ABSENT: rales, rhonchi, wheezes Cardiovascular exam: PRESENT: RRR. ABSENT: diastolic murmur, rubs, systolic murmur GI/Abdominal exam: PRESENT: normal bowel sounds, soft. ABSENT: distended, guarding, mass, organolmegaly, rebound, tenderness Rectal exam: PRESENT: deferred Extremities exam: PRESENT: full ROM. ABSENT: calf tenderness, clubbing, pedal edema Neurological exam: PRESENT: alert, awake, CN II-XII grossly intact Psychiatric exam: PRESENT: agitated Results Laboratory Results: 05/30/19 05:01 05/29/19 08:46 05/29/19 05/30/19 08:46 05:01 WBC 5.9 RBC 4.13 L Hgb 12.9 L Hct 35.6 L MCV 86 MCH 31.1 MCHC 36.1 H RDW 13.5 Plt Count 251 Seg Neutrophils % 52.1 Sodium 140.8 Potassium 3.4 L Chloride 104 Carbon Dioxide 28 Anion Gap 9 BUN 6 L Creatinine 0.86 Est GFR ( Amer) > 60 Glucose 99 Calcium 9.1 Total Bilirubin 0.7 AST 16 L Alkaline Phosphatase 49 Total Protein 6.6 Albumin 3.7 05/26/19 05/26/19 05/26/19 14:34 14:34 20:00 Creatine Kinase 547 H 430 H CK-MB (CK-2) 2.55 Troponin I < 0.012 05/26/19 05/27/19 05/27/19 20:00 01:48 01:48 Creatine Kinase 308 H CK-MB (CK-2) 2.35 1.69 Troponin I < 0.012 < 0.012 Impressions: Chest X-Ray 05/26/19 00:00 IMPRESSION: NO ACUTE RADIOGRAPHIC FINDING IN THE CHEST. Assessment and Plan - Diagnosis (1) Intentional diphenhydramine overdose Qualifiers: Encounter type: initial encounter Qualified Code(s): T45.0X2A - Poisoning by antiallergic and antiemetic drugs, intentional self-harm, initial encounter Is this a current diagnosis for this admission?: Yes Plan: Hallucinations have resolved. Complaining of being tired. Continue IMCU. Monitor vitals. Monitor for urinary retention. Scheduled low-dose benzos and as needed. Implement seizure, fall and aspiration precautions. Avoid any drugs with anticholinergic activity. Consider anticholinesterase inhibitors such as physostigmine if no improvement. 1 [id number] male admitted with hallucinations most likely secondary to intentional diphenhydramine overdose last night patient was agitated and attempted to choke himself on the diet he is n.p.o. for now psych is on board. He is in mittens and in soft restraints. Is to continue psychiatric recommendations. 05/30/2019-adding male admitted for intentional diphenhydramine overdose. Admitted for suicidal attempt. Patient is medically cleared to go to the psychiatric facility. As per the psych recommendations Ativan, diazepam are discontinued and started on Thorazine and clonidine. (2) Acute anoxic encephalopathy Is this a current diagnosis for this admission?: Yes Plan: Resolved. Alert and oriented x3. Denies any auditory on visual hallucinations. This was most likely due to acute toxic metabolic encephalopathy. Due to drug overdose. Plan as per #1. 05/29/2019 acute anoxic encephalopathy is resolved. Patient is alert awake oriented communicating well. 05/30/2019 patient has episodes of agitation and aggressive behavior. Yesterday 6 people has to hold down the bed and was given Geodon 10 mg IM. He continues to pull out the IV lines. Discussed the case with psych team they agreed to transfer him to inpatient psych facility at [place]. Patient is medically cleared. (3) Hallucinations Is this a current diagnosis for this admission?: Yes (4) Overdose Qualifiers: Encounter type: initial encounter Injury intent: intentional self-harm Qualified Code(s): T50.902A - Poisoning by unspecified drugs, medicaments and biological substances, intentional self-harm, initial encounter Is this a current diagnosis for this admission?: Yes (5) History of paroxysmal supraventricular tachycardia Is this a current diagnosis for this admission?: Yes (6) History of seizure Is this a current diagnosis for this admission?: No Plan: As per patient he has history of seizure but has not seized for several years and does not take any medication for now. Has not had any seizures on this admission. Implement seizure precautions. Benzos as needed for seizure. 05/30/2019 no seizure activity noted in the last 24 hours.
--- NOTE | 2019-05-30 11:49 | PSYCHOLOGICAL NOTE ---
Psych Note - Psych Note Date seen by psych provider: 05/30/19 Time seen by psych provider: 11:45 Psych Note: Check in conducted. Patient engaged with clinician in a linear conversation. Clinician notes this is the best presentation from patient since his admittance. Patient states he saw his dog last night. Patient spoke that seeing his , son, and dog lifted his spirits "and gave me something to live for." Patient inquired about his placement. Clinician informed patient [facility]. Patient asked about a sleep aid. Clinician informed patient Zyprexa was ordered to assist with sleep. Patient states he usually takes Ambien. Clinician advised patient he would not be prescribed benzos or barbiturates from [facility]. Clinician notes no distress. Per report from sitter: Patient requested sleep aid. Sitter replied that she was unsure if he could be provided with a sleep aid. Patient replied, "if I act a fool they will." Per nursing note, patient was given 7.5MG of Restoril for insomnia. This suggests that patient is cognizant of what behaviors will result in him being given the medication he wants. Referral packed has been sent to [place] for placement. Medication recommendations are as follows: 1. Discontinue Ativan 2. Discontinue Diazepam 3. Discontinue Restoril 4. Continue Thorazine every 6 hours IM as needed 5. Add Zyprexa 5MG, at bedtime *Please note this to be considered patient's sleep aid. Please do not order additional sleep meds 6. Continue Clonidine 0.1 mg every 12 hours as needed. 7. Continue Depakene at 250 mg twice per day. 5. Add Cogentin 0.5MG, daily Please contact the behavioral health office at [phone] for questions regarding this recommendation.
[2019-05-30] MEDS: OLANZAPINE 5 MG TABLET PO SCH (21:09)
[2019-05-31] MEDS: CLONIDINE HCL 0.2 MG TABLET PO SCH ×3 (05:15→21:08)
[2019-05-31] MEDS: CHLORPROMAZINE HCL 50 MG TABLET PO SCH ×3 (05:17→21:07)
[2019-05-31] MEDS: VALPROATE SODIUM SYRUP 250 MG/5 ML UDCUP PO SCH ×2 (05:18→17:04)
[2019-05-31] MEDS: HEPARIN SOD (PORCINE) 5,000 UNIT/ML 1 ML VIAL SUBCUT SCH ×3 (05:18→21:07)
--- NOTE | 2019-05-31 09:32 | PDOC PROGRESS REPORT ---
Subjective Progress Note for:: 05/31/19 Subjective:: 34 year old male who presented to ED after intentional diphenhydramine overdose. As per ED physician's note patient been having having relational problems with his who around 1:15 supposedly took an unknown quantity of 25 mg tablets of Benadryl. Patient states he was recently purchased bottle. He believes he had around 90 tablets in the bottle. Patient takes it only for sleep at night. There were 2 tablets left by EMS. EMS provided activated charcoal. He was having some visual hallucinations. Patient denies any pain at this time. He states he was very upset and attempted to kill himself. History as recorded medically. Patient states he last drank alcohol 2 weeks ago. On my encounter no family at the bedside, patient is awake, alert, but unf ortunately only oriented to self, does not follow three-step command, attention span is very short appears to be responding to internal stimuli but when asked he denies having any visual or auditory hallucinations. 05/25/2019. As per primary nurse patient has been intermittent hallucination and agitation otherwise no acute events overnight, on my encounter patient is resting comfortably in bed in no apparent distress, he is alert and oriented x3, cooperative with physical examination, attention span improving, does not recall any events leading to this hospitalization, denies any fever, chills, nausea, vomiting, diarrhea, constipation or any urinary symptoms. 05/26/2019. As per primary nurse overnight patient has been hallucinating and been agitated admittedly. On my encounter patient is sleeping comfortably, easily arousable, alert and oriented x2, denies any visual or auditory kaylynn lucinations. Does not appear to be in apparent distress. Does not remember anything leading to this hospitalization. Denies any fever, chills, nausea, vomiting, diarrhea, constipation or any urinary symptoms 05/27/2019. No acute events overnight. Overnight patient was found to be mildly confused, has not had any auditory visual hallucination. This morning patient is comfortably comfortably sleeping, easily arousable, stating that he feels tired, alert and oriented x3. Denies any visual or auditory hallucinations. 05/29/2019 patient try to swallow large piece of bread try to choke himself so he was kept n.p.o. from last night. And he is also on mittens he is on a soft restraints because he pulled out all the IV lines last night. This morning patient is comfortably in the bed not in distress. 05/30/2019-patient was started on Thorazine and clonidine, Ativan and diazepam are discontinued as per psych recommendations. He still under IVC. Patient is medically cleared to go to psychiatric facility. 05/31/19 34-year-old male admitted with suicidal ideation and hallucinations he is stable from last night. Comfortably in the bed sleeping. Denies any pro blems. He still under IVC commitment. Patient is medically cleared to go to the psych facility. Reason For Visit: DIPHENHYDRAMINE OVERDOSE Physical Exam Vital Signs: Temp Pulse Resp BP Pulse Ox 97.6 F 71 17 95/62 L 98 05/31/19 07:54 05/31/19 07:54 05/31/19 07:54 05/31/19 07:54 05/31/19 07:54 Intake & Output 05/30/19 05/31/19 06/01/19 06:59 06:59 06:59 Intake Total 974 452 Output Total 2275 250 Balance -1301 202 Weight 59.7 kg 60.4 kg General appearance: PRESENT: no acute distress, thin Head exam: PRESENT: atraumatic Eye exam: PRESENT: PERRLA Mouth exam: PRESENT: moist, tongue midline Neck exam: ABSENT: carotid bruit, JVD, lymphadenopathy, thyromegaly Respiratory exam: PRESENT: clear to auscultation jin. ABSENT: rales, rhonchi, wheezes Cardiovascular exam: PRESENT: RRR. ABSENT: diastolic murmur, rubs, systolic murmur GI/Abdominal exam: PRESENT: normal bowel sounds, soft. ABSENT: distended, guarding, mass, organolmegaly, rebound, tenderness Rectal exam: PRESENT: deferred Extremities exam: PRESENT: full ROM. ABSENT: calf tenderness, clubbing, pedal edema Neurological exam: PRESENT: alert, altered, oriented to person, oriented to place, oriented to time, CN II-XII grossly intact Psychiatric exam: PRESENT: appropriate affect, normal mood. ABSENT: homicidal ideation, suicidal ideation Results Laboratory Results: 05/30/19 05:01 05/29/19 08:46 05/26/19 05/26/19 05/26/19 14:34 14:34 20:00 Creatine Kinase 547 H 430 H CK-MB (CK-2) 2.55 Troponin I < 0.012 05/26/19 05/27/19 05/27/19 20:00 01:48 01:48 Creatine Kinase 308 H CK-MB (CK-2) 2.35 1.69 Troponin I < 0.012 < 0.012 Impressions: Chest X-Ray 05/26/19 00:00 IMPRESSION: NO ACUTE RADIOGRAPHIC FINDING IN THE CHEST. Assessment and Plan - Diagnosis (1) Intentional diphenhydramine overdose Qualifiers: Encounter type: initial encounter Qualified Code(s): T45.0X2A - Poisoning by antiallergic and antiemetic drugs, intentional self-harm, initial encounter Is this a current diagnosis for this admission?: Yes Plan: Hallucinations have resolved. Complaining of being tired. Continue IMCU. Monitor vitals. Monitor for urinary retention. Scheduled low-dose benzos and as needed. Implement seizure, fall and aspiration precautions. Avoid any drugs with anticholinergic activity. Consider anticholinesterase inhibitors such as physostigmine if no improvement. 1 [id number] male admitted with hallucinations most likely secondary to intentional diphenhydramine overdose last night patient was agitated and attempted to choke himself on the diet he is n.p.o. for now psych is on board. He is in mittens and in soft restraints. Is to continue psychiatric recommendations. 05/30/2019-adding male admitted for intentional diphenhydramine overdose. Admitted for suicidal attempt. Patient is medically cleared to go to the psychiatric facility. As per the psych recommendations Ativan, diazepam are discontinued and started on Thorazine and clonidine. 05/31/[id number]-old male admitted with diphenhydramine overdose. Implementing psych recommendations. No acute events since last night. Patient is medically cleared to go to acute psych facility. (2) Acute anoxic encephalopathy Is this a current diagnosis for this admission?: Yes Plan: Resolved. Alert and oriented x3. Denies any auditory on visual hallucinations. This was most likely due to acute toxic metabolic encephalopathy. Due to drug overdose. Plan as per #1. 05/29/2019 acute anoxic encephalopathy is resolved. Patient is alert awake oriented communicating well. 05/30/2019 patient has episodes of agitation and aggressive behavior. Yesterday 6 people has to hold down the bed and was given Geodon 10 mg IM. He continues to pull out the IV lines. Discussed the case with psych team they agreed to transfer him to inpatient psych facility at [place]. Patient is medically cleared. 05/31/2019-patient admitted with acute metabolic encephalopathy which was re solved. (3) Hallucinations Is this a current diagnosis for this admission?: Yes Plan: Resolved. Due to anticholinergic toxicity. Plan as per above. 05/[id number]-old male admitted with hallucinations may be secondary to anti cholinergic activity no complaints of hallucinations today. (4) Overdose Qualifiers: Encounter type: initial encounter Injury intent: intentional self-harm Qualified Code(s): T50.902A - Poisoning by unspecified drugs, medicaments and biological substances, intentional self-harm, initial encounter Is this a current diagnosis for this admission?: Yes (5) History of paroxysmal supraventricular tachycardia Is this a current diagnosis for this admission?: Yes (6) History of seizure Is this a current diagnosis for this admission?: No
--- NOTE | 2019-05-31 09:37 | PSYCHOLOGICAL NOTE ---
Psych Note - Psych Note Date seen by psych provider: 05/31/19 Time seen by psych provider: 08:05 Psych Note: Check in conducted. Patient engaged with clinician in a linear conversation. Clinician notes continued improvement. Patient requested discharge so he could "go home and go back to work." Patient was informed [facility]. Patient denies SI to clinician. Per chart review, patient continues to endorse SI to nursing staff. Referral packed has been sent to [place] facilities ([facility], [facility]). Medication recommendations are as follows: 1. Discontinue Ativan 2. Discontinue Diazepam 3. Discontinue Restoril 4. Continue Thorazine every 6 hours IM as needed 5. Continue Zyprexa 5MG, at bedtime *Please note this to be considered patient's sleep aid. Please do not order additional sleep meds 6. Continue Clonidine 0.1 mg every 12 hours as needed. 7. Continue Depakene at 250 mg twice per day. 5. Continue Cogentin 0.5MG, daily Please contact the behavioral health office at [phone] for questions regarding this recommendation. Impression\\plan:Patient is recommended for continued IVC. Patient will be re- evaluated. [facility]. [facility]. Caicedo was consulted to care management of this patient; attending physicians in agreement with recommendations and disposition.
[2019-05-31] MEDS: BENZTROPINE MESYLATE 1 MG TABLET PO SCH (10:46)
[2019-05-31] MEDS: IBUPROFEN 800 MG TABLET PO PRN (17:02)
[2019-05-31] MEDS: OXYCODONE-ACETAMINOPHEN 5-325 MG TABLET PO PRN (18:37)
[2019-05-31] MEDS: OLANZAPINE 5 MG TABLET PO SCH (21:07)
[2019-06-01] MEDS: CLONIDINE HCL 0.2 MG TABLET PO SCH ×3 (05:35→21:39)
[2019-06-01] MEDS: HEPARIN SOD (PORCINE) 5,000 UNIT/ML 1 ML VIAL SUBCUT SCH ×3 (05:35→21:39)
[2019-06-01] MEDS: VALPROATE SODIUM SYRUP 250 MG/5 ML UDCUP PO SCH ×2 (05:48→20:14)
[2019-06-01] MEDS: IBUPROFEN 800 MG TABLET PO PRN ×2 (05:48→13:17)
[2019-06-01] MEDS: CHLORPROMAZINE HCL 50 MG TABLET PO SCH ×3 (05:48→21:38)
--- NOTE | 2019-06-01 09:45 | PDOC PROGRESS REPORT ---
Subjective Progress Note for:: 06/01/19 Subjective:: 34 year old male who presented to ED after intentional diphenhydramine overdose. As per ED physician's note patient been having having relational problems with his who around 1:15 supposedly took an unknown quantity of 25 mg tablets of Benadryl. Patient states he was recently purchased bottle. He believes he had around 90 tablets in the bottle. Patient takes it only for sleep at night. There were 2 tablets left by EMS. EMS provided activated charcoal. He was having some visual hallucinations. Patient denies any pain at this time. He states he was very upset and attempted to kill himself. History as recorded medically. Patient states he last drank alcohol 2 weeks ago. On my encounter no family at the bedside, patient is awake, alert, but unf ortunately only oriented to self, does not follow three-step command, attention span is very short appears to be responding to internal stimuli but when asked he denies having any visual or auditory hallucinations. 05/25/2019. As per primary nurse patient has been intermittent hallucination and agitation otherwise no acute events overnight, on my encounter patient is resting comfortably in bed in no apparent distress, he is alert and oriented x3, cooperative with physical examination, attention span improving, does not recall any events leading to this hospitalization, denies any fever, chills, nausea, vomiting, diarrhea, constipation or any urinary symptoms. 05/26/2019. As per primary nurse overnight patient has been hallucinating and been agitated admittedly. On my encounter patient is sleeping comfortably, easily arousable, alert and oriented x2, denies any visual or auditory kaylynn lucinations. Does not appear to be in apparent distress. Does not remember anything leading to this hospitalization. Denies any fever, chills, nausea, vomiting, diarrhea, constipation or any urinary symptoms 05/27/2019. No acute events overnight. Overnight patient was found to be mildly confused, has not had any auditory visual hallucination. This morning patient is comfortably comfortably sleeping, easily arousable, stating that he feels tired, alert and oriented x3. Denies any visual or auditory hallucinations. 05/29/2019 patient try to swallow large piece of bread try to choke himself so he was kept n.p.o. from last night. And he is also on mittens he is on a soft restraints because he pulled out all the IV lines last night. This morning patient is comfortably in the bed not in distress. 05/30/2019-patient was started on Thorazine and clonidine, Ativan and diazepam are discontinued as per psych recommendations. He still under IVC. Patient is medically cleared to go to psychiatric facility. 05/31/19 34-year-old male admitted with suicidal ideation and hallucinations he is stable from last night. Comfortably in the bed sleeping. Denies any pro blems. He still under IVC commitment. Patient is medically cleared to go to the psych facility. [id number]-[id number]-old male admitted with diphenhydramine overdose with suicidal ideation and hallucinations patient is medically cleared to go to the inpatient psych facility. Waiting for the bed availability. Reason For Visit: DIPHENHYDRAMINE OVERDOSE Physical Exam Vital Signs: Temp Pulse Resp BP Pulse Ox 97.7 F 74 16 105/62 97 06/01/19 07:23 06/01/19 07:23 06/01/19 07:23 06/01/19 07:23 06/01/19 07:23 Intake & Output 05/31/19 06/01/19 06/02/19 06:59 06:59 06:59 Intake Total 452 720 Output Total 250 Balance 202 720 Weight 60.4 kg 59.9 kg General appearance: PRESENT: no acute distress, thin Head exam: PRESENT: atraumatic Eye exam: PRESENT: PERRLA Mouth exam: PRESENT: moist, tongue midline Neck exam: ABSENT: carotid bruit, JVD, lymphadenopathy, thyromegaly Respiratory exam: PRESENT: clear to auscultation jin. ABSENT: rales, rhonchi, wheezes Cardiovascular exam: PRESENT: RRR. ABSENT: diastolic murmur, rubs, systolic murmur Pulses: PRESENT: normal dorsalis pedis pul GI/Abdominal exam: PRESENT: normal bowel sounds, soft. ABSENT: distended, guarding, mass, organolmegaly, rebound, tenderness Rectal exam: PRESENT: deferred Extremities exam: PRESENT: full ROM. ABSENT: calf tenderness, clubbing, pedal edema Neurological exam: PRESENT: alert, awake, oriented to person, oriented to place, oriented to time, oriented to situation, CN II-XII grossly intact. ABSENT: motor sensory deficit Psychiatric exam: PRESENT: appropriate affect, normal mood. ABSENT: homicidal ideation, suicidal ideation Results Laboratory Results: 05/30/19 05:01 05/29/19 08:46 05/26/19 05/26/19 05/26/19 14:34 14:34 20:00 Creatine Kinase 547 H 430 H CK-MB (CK-2) 2.55 Troponin I < 0.012 05/26/19 05/27/19 05/27/19 20:00 01:48 01:48 Creatine Kinase 308 H CK-MB (CK-2) 2.35 1.69 Troponin I < 0.012 < 0.012 Impressions: Chest X-Ray 05/26/19 00:00 IMPRESSION: NO ACUTE RADIOGRAPHIC FINDING IN THE CHEST. Assessment and Plan - Diagnosis (1) Intentional diphenhydramine overdose Qualifiers: Encounter type: initial encounter Qualified Code(s): T45.0X2A - Poisoning by antiallergic and antiemetic drugs, intentional self-harm, initial encounter Is this a current diagnosis for this admission?: Yes Plan: Hallucinations have resolved. Complaining of being tired. Continue IMCU. Monitor vitals. Monitor for urinary retention. Scheduled low-dose benzos and as needed. Implement seizure, fall and aspiration precautions. Avoid any drugs with anticholinergic activity. Consider anticholinesterase inhibitors such as physostigmine if no improvement. 1 [id number] male admitted with hallucinations most likely secondary to intentional diphenhydramine overdose last night patient was agitated and attempted to choke himself on the diet he is n.p.o. for now psych is on board. He is in mittens and in soft restraints. Is to continue psychiatric recommendations. 05/30/2019-adding male admitted for intentional diphenhydramine overdose. Admitted for suicidal attempt. Patient is medically cleared to go to the psychiatric facility. As per the psych recommendations Ativan, diazepam are discontinued and started on Thorazine and clonidine. 05/[id number]-ixyo-old male admitted with diphenhydramine overdose. Implementing psych recommendations. No acute events since last night. Patient is medically cleared to go to acute psych facility. 06/01/2019-patient is medically cleared awaiting for placement in acute psychiatric facility. (2) Acute anoxic encephalopathy Is this a current diagnosis for this admission?: Yes Plan: Resolved. Alert and oriented x3. Denies any auditory on visual hallucinations. This was most likely due to acute toxic metabolic encephalopathy. Due to drug overdose. Plan as per #1. 05/29/2019 acute anoxic encephalopathy is resolved. Patient is alert awake o riented communicating well. 05/30/2019 patient has episodes of agitation and aggressive behavior. Yesterday 6 people has to hold down the bed and was given Geodon 10 mg IM. He continues to pull out the IV lines. Discussed the case with psych team they agreed to transfer him to inpatient psych facility at [facility]. Patient is medically cleared. 05/31/2019-patient admitted with acute metabolic encephalopathy which was resolved. 06/01/2019-patient admitted with acute metabolic encephalopathy most likely secondary to drug overdose no acute events in the last 24 hours. Comfortably sleeping in the bed this morning. (3) Hallucinations Is this a current diagnosis for this admission?: Yes Plan: Resolved. Due to anticholinergic toxicity. Plan as per above. 05/[id number]-mqma-old male admitted with hallucinations may be secondary to anticholinergic activity no complaints of hallucinations today. 06/01/2019-hallucinations resolved. (4) Overdose Qualifiers: Encounter type: initial encounter Injury intent: intentional self-harm Qualified Code(s): T50.902A - Poisoning by unspecified drugs, medicaments and biological substances, intentional self-harm, initial encounter Is this a current diagnosis for this admission?: Yes Plan: Intentional drug overdose. Suicidal ideation. Psychiatry consulted. Currently patient IVC. Follow-up recommendations. 06/01/2019-patient admitted with a diphenhydramine intentional overdose with suicidal ideation currently on IVC commitment waiting for bed to go to inpatient psychiatric facility. (5) History of paroxysmal supraventricular tachycardia Is this a current diagnosis for this admission?: Yes (6) History of seizure Is this a current diagnosis for this admission?: No Plan: As per patient he has history of seizure but has not seized for several years and does not take any medication for now. Has not had any seizures on this admission. Implement seizure precautions. Benzos as needed for seizure. 05/30/2019 no seizure activity noted in the last 24 hours. 06/01/2019-no seizure activity was noted in the last 72 hours.
[2019-06-01] MEDS: BENZTROPINE MESYLATE 1 MG TABLET PO SCH (11:04)
--- NOTE | 2019-06-01 11:59 | PSYCHOLOGICAL NOTE ---
Psych Note - Psych Note Date seen by psych provider: 06/01/19 Time seen by psych provider: 14:25 Psych Note: Reason for consult: Intentional overdose Patient continues to present flat. Patient denies wanting to hurt himself however cannot articulate why today is any different than Saturday (05/30/2019) when he last verbalized wanting to staff and becoming inconsolable. He relied "I guess is just a new calendar day, so I feel better." Clinician notes the patient was observed attempting to shove large amounts of food into his mouth today (06/01/2019) in an attempt to choke himself; he was stopped. Patient denies doing this and states that he has to have his esophagus dialyzed and knows that he needs to watch the amount of food that he is attempting to swallow at one time. He is currently on liquid diet only again. Patient first attempted to choke himself with his food on 05/28/2019. during that event, staff got two fist sized pieces of food out of his throat but he remained choking; Abdominal thrust was performed.Once the patient was calm, he then stated "you guys should have just let me . Why didn't you jut let me ." Medication recommendations per [facility]'s contracted psychiatrist Dr Jonah KEMP are as follows 4. Continue Thorazine 50mg every 6 hours IM as needed 5. Continue Zyprexa 5mg at bedtime *Please note this to be considered patient's sleep aid. Please do not order additional sleep meds* 6. Continue Clonidine 0.1 mg every 12 hours as needed 7. Continue Depakene at 250 mg twice daily 5. Continue Cogentin 0.5mg daily Impression\\plan: Patient is recommended for continued of IVC. [facility]. Patient's previous IVC expires today 06/01/2019. [facility]. Attending physician is asked to review medications; medication recommendations have been provided above. Dr. Caicedo was consulted to care management of this patient; attending physicians in agreement with recommendations and disposition.
[2019-06-01] MEDS: OXYCODONE-ACETAMINOPHEN 5-325 MG TABLET PO PRN (18:25)
[2019-06-01] MEDS: OLANZAPINE 5 MG TABLET PO SCH (21:38)
[2019-06-02 04:58] LABS: ABSOLUTE EOSINOPHILS # (AUTO) 0.1 10^3/uL (0.0-0.6); ABSOLUTE LYMPHOCYTES (AUTO) 2.1 10^3/uL (0.5-4.7); ABSOLUTE MONOCYTES (AUTO) 0.5 10^3/uL (0.1-1.4); BASOPHILS % (AUTO) 0.7 % (0-2); HEMATOCRIT 34.1 % (37.9-51.0); HEMOGLOBIN 12.3 g/dL (13.5-17.0); MEAN CORPUSCULAR HEMOGLOBIN 31.6 pg (27.0-33.4); MEAN CORPUSCULAR HGB CONC 36.1 g/dL (32.0-36.0); MEAN CORPUSCULAR VOLUME 87 fl (80-97); PLATELET COUNT 260 10^3/uL (150-450); RED CELL DISTRIBUTION WIDTH 13.5 % (11.5-14.0); SEGMENTED NEUTROPHILS % (AUTO) 59.3 % (42-78); TOTAL CELLS COUNTED % (AUTO) 100 %; WHITE BLOOD COUNT 6.7 10^3/uL (4.0-10.5)
[2019-06-02 05:25] LABS: ALBUMIN 3.4 g/dL (3.5-5.0); ALKALINE PHOSPHATASE 39 U/L (38-126); ANION GAP 8 (5-19); ASPARTATE AMINO TRANSFERASE 15 U/L (17-59); BILIRUBIN,DIRECT 0.1 mg/dL (0.0-0.4); BILIRUBIN,TOTAL 0.3 mg/dL (0.2-1.3); BLOOD UREA NITROGEN 7 mg/dL (7-20); CALCIUM 8.9 mg/dL (8.4-10.2); CARBON DIOXIDE 30 mmol/L (22-30); CHLORIDE 104 mmol/L (98-107); GLUCOSE 77 mg/dL (75-110); POTASSIUM 3.5 mmol/L (3.6-5.0); TOTAL PROTEIN 6.2 g/dL (6.3-8.2)
[2019-06-02] MEDS: CHLORPROMAZINE HCL 50 MG TABLET PO SCH ×3 (06:18→21:22)
[2019-06-02] MEDS: VALPROATE SODIUM SYRUP 250 MG/5 ML UDCUP PO SCH ×2 (06:19→17:15)
[2019-06-02] MEDS: CLONIDINE HCL 0.2 MG TABLET PO SCH ×3 (06:19→21:17)
[2019-06-02] MEDS: HEPARIN SOD (PORCINE) 5,000 UNIT/ML 1 ML VIAL SUBCUT SCH ×3 (06:20→21:22)
[2019-06-02] MEDS: BENZTROPINE MESYLATE 1 MG TABLET PO SCH (09:03)
[2019-06-02] MEDS: OXYCODONE-ACETAMINOPHEN 5-325 MG TABLET PO PRN ×2 (09:03→17:23)
--- NOTE | 2019-06-02 11:31 | PSYCHOLOGICAL NOTE ---
Psych Note - Psych Note Date seen by psych provider: 06/02/19 Time seen by psych provider: 14:25 Psych Note: Reason for Consult:Intentional Overdose Please no visitors for this patient Clinician spoke with patient's to discuss why he is unable to have any visitors now. She reports frustration in being told that that the patient was improving by nurses but then when reading patient's new IVC paperwork is very clear that the patient has not been improving mental health childs. She continued report that she while she understands they are she does not want to make the patient feel that he is completely alone; "he is still the father of my child and we are still ." She confirms that she now understands why no visitors was requested and confirms she was fully supporting and will be compliant with this request. She discloses some concern that the patient's mother and her just spoke and that "they are old [place]." She reports that this conversation between her nnikzp-jh-emc on her did not go well and that her vutnho-uv-nul became upset that the patient was at the hospital. She states that when she asked her ubiowz-np-vua what she was supposed to do "after he overdosed, not call emergency services?... She said, well, if he was stupid enough to take them." She states she does not feel this would be good for the patient to be around. updated Medication recommendations per [facility]'s contracted psychiatrist Dr Jonah KEMP are as follows Please change Thorazine 50mg to every 6 hours IM as needed Please increase Zyprexa Zydis 5mg twice daily Please decrease Clonidine to 0.1 mg every 12 hours as needed Please increase Depakene to 500 mg twice daily Continue Cogentin 0.5mg daily Impression\\plan: Patient is recommended for continued of IVC. [facility] Attending physician is asked to review medications; medication recommendations have been provided above. Dr. Caicedo was consulted to care management of this patient; attending physicians in agreement with recommendations and disposition.
[2019-06-02] MEDS ORDERED: POTASSIUM CHLORIDE 10 MEQ TABLET.ER PO ONE (14:25)
--- NOTE | 2019-06-02 15:21 | PDOC PROGRESS REPORT ---
Subjective Progress Note for:: 06/02/19 Subjective:: Patient is sitting on the bed. He is quite upset because his diet is been changed to full liquids. This was due to 2 separate reports of the patient trying to induce choking by swallowing [employer]. He feels that the staff does not like him. He is medically stable and we are waiting for placement. He is still under involuntary commitment. He did express concerns about work and supporting his family. Reason For Visit: DIPHENHYDRAMINE OVERDOSE Physical Exam Vital Signs: Temp Pulse Resp BP Pulse Ox 97.9 F 66 18 112/69 99 06/02/19 11:48 06/02/19 14:00 06/02/19 11:48 06/02/19 11:48 06/02/19 11:48 Intake & Output 06/01/19 06/02/19 06/03/19 06:59 06:59 06:59 Intake Total 720 1200 237 Balance 720 1200 237 Weight 59.9 kg 60 kg General appearance: PRESENT: no acute distress, cooperative, thin, well- developed Head exam: PRESENT: atraumatic, normocephalic Ear exam: PRESENT: normal external ear exam. ABSENT: bleeding, drainage Respiratory exam: PRESENT: clear to auscultation jin, symmetrical, unlabored. ABSENT: rales, rhonchi, tachypnea, wheezes Cardiovascular exam: PRESENT: RRR, +S1, +S2 GI/Abdominal exam: PRESENT: normal bowel sounds, soft. ABSENT: distended, ten derness Rectal exam: PRESENT: deferred Extremities exam: ABSENT: joint swelling, pedal edema Neurological exam: PRESENT: alert, awake, oriented to person, oriented to place, oriented to time, oriented to situation, CN II-XII grossly intact Psychiatric exam: PRESENT: anxious, appropriate affect. ABSENT: agitated Focused psych exam: ABSENT: delusional, restlessness Skin exam: PRESENT: dry, normal color, warm. ABSENT: rash Results Laboratory Results: 06/02/19 04:46 06/02/19 04:46 06/02/19 06/02/19 04:46 04:46 WBC 6.7 RBC 3.90 L Hgb 12.3 L Hct 34.1 L MCV 87 MCH 31.6 MCHC 36.1 H RDW 13.5 Plt Count 260 Seg Neutrophils % 59.3 Sodium 141.6 Potassium 3.5 L Chloride 104 Carbon Dioxide 30 Anion Gap 8 BUN 7 Creatinine 0.94 Est GFR ( Amer) > 60 Glucose 77 Calcium 8.9 Magnesium 1.9 Total Bilirubin 0.3 AST 15 L Alkaline Phosphatase 39 Total Protein 6.2 L Albumin 3.4 L 05/26/19 05/26/19 05/26/19 14:34 14:34 20:00 Creatine Kinase 547 H 430 H CK-MB (CK-2) 2.55 Troponin I < 0.012 05/26/19 05/27/19 05/27/19 20:00 01:48 01:48 Creatine Kinase 308 H CK-MB (CK-2) 2.35 1.69 Troponin I < 0.012 < 0.012 Impressions: Chest X-Ray 05/26/19 00:00 IMPRESSION: NO ACUTE RADIOGRAPHIC FINDING IN THE CHEST. Assessment and Plan - Diagnosis (1) Intentional diphenhydramine overdose Qualifiers: Encounter type: initial encounter Qualified Code(s): T45.0X2A - Poisoning by antiallergic and antiemetic drugs, intentional self-harm, initial encounter Is this a current diagnosis for this admission?: Yes Plan: Patient still under IVC. Please also see psychiatry note. Awaiting placement and an inpatient facility. (2) Acute anoxic encephalopathy Is this a current diagnosis for this admission?: Yes Plan: Resolved. Continue current medications. (3) Hallucinations Is this a current diagnosis for this admission?: Yes Plan: Secondary to anticholinergic toxicity. Resolved (4) Agitation Is this a current diagnosis for this admission?: Yes Plan: Possibly related to encephalopathy. Resolved. Continue current medications. (5) Choking episode Is this a current diagnosis for this admission?: Yes Plan: [place] to be self-induced. Continue full liquid diet. Consider soft mechanical with ground meats. - Plan Summary Summary: 34-year-old male with intentional diphenhydramine overdose. He exhibited hallucinations and agitated behavior likely related to the overdose. There was felt to be a self-induced choking episode but trying to swallow a role hold. Second episode of similar behavior with eating was observed by nursing. He is currently on full liquid diet. Consider advancing to soft mechanical with ground meats. He is currently stable on his present medical regimen. He is medically cleared and there are no medical contraindications to inpatient psychiatric facility placement. The hypokalemia is likely related to dietary restrictions and will currently use low-dose potassium chloride but will add orange juice or banana daily to his diet and this should adequately compensated. - Time Time Spent with patient: 15-24 minutes Anticipated discharge: Other Within: when bed available
[2019-06-02] MEDS: OLANZAPINE 5 MG TABLET PO SCH (21:22)
[2019-06-03] MEDS: CLONIDINE HCL 0.2 MG TABLET PO SCH ×3 (05:41→21:29)
[2019-06-03] MEDS: CHLORPROMAZINE HCL 50 MG TABLET PO SCH ×3 (05:44→21:54)
[2019-06-03] MEDS: VALPROATE SODIUM SYRUP 250 MG/5 ML UDCUP PO SCH ×2 (05:45→18:10)
[2019-06-03] MEDS: HEPARIN SOD (PORCINE) 5,000 UNIT/ML 1 ML VIAL SUBCUT SCH ×3 (05:45→21:30)
[2019-06-03] MEDS: BENZTROPINE MESYLATE 1 MG TABLET PO SCH (09:44)
[2019-06-03] MEDS: POTASSIUM CHLORIDE 10 MEQ TABLET.ER PO SCH (09:44)
--- NOTE | 2019-06-03 15:01 | PDOC PROGRESS REPORT ---
Subjective Progress Note for:: 06/03/19 Subjective:: The patient is resting in bed. He is not agitated. He is requesting his cell phone. He is still unhappy about his diet. He did state that 1 of the medications given this afternoon makes him somewhat drowsy and slurs his speech. This is most likely the Thorazine. Reason For Visit: DIPHENHYDRAMINE OVERDOSE Physical Exam Vital Signs: Temp Pulse Resp BP Pulse Ox 98.2 F 78 16 117/62 99 06/03/19 09:08 06/03/19 14:00 06/03/19 09:08 06/03/19 09:08 06/03/19 09:08 Intake & Output 06/02/19 06/03/19 06/04/19 06:59 06:59 06:59 Intake Total 1200 759 625 Balance 1200 759 625 Weight 60 kg 60.5 kg General appearance: PRESENT: no acute distress, cooperative, thin, well- developed Head exam: PRESENT: atraumatic, normocephalic Respiratory exam: PRESENT: clear to auscultation jin, symmetrical, unlabored. ABSENT: rales, rhonchi, tachypnea, wheezes Cardiovascular exam: PRESENT: RRR, +S1, +S2 GI/Abdominal exam: PRESENT: normal bowel sounds, soft. ABSENT: distended, guarding, tenderness Rectal exam: PRESENT: deferred Gentrourinary exam: ABSENT: indwelling catheter Extremities exam: PRESENT: full ROM. ABSENT: joint swelling, pedal edema Musculoskeletal exam: PRESENT: ambulatory, normal inspection. ABSENT: deformity Neurological exam: PRESENT: alert, awake, oriented to person, oriented to place, oriented to time, oriented to situation, CN II-XII grossly intact, other - There is mild slurring of speech Psychiatric exam: PRESENT: flat affect. ABSENT: agitated, anxious Results Laboratory Results: 06/02/19 04:46 06/02/19 04:46 05/26/19 05/26/19 05/26/19 14:34 14:34 20:00 Creatine Kinase 547 H 430 H CK-MB (CK-2) 2.55 Troponin I < 0.012 05/26/19 05/27/19 05/27/19 20:00 01:48 01:48 Creatine Kinase 308 H CK-MB (CK-2) 2.35 1.69 Troponin I < 0.012 < 0.012 Impressions: Chest X-Ray 05/26/19 00:00 IMPRESSION: NO ACUTE RADIOGRAPHIC FINDING IN THE CHEST. Assessment and Plan - Diagnosis (1) Intentional diphenhydramine overdose Qualifiers: Encounter type: initial encounter Qualified Code(s): T45.0X2A - Poisoning by antiallergic and antiemetic drugs, intentional self-harm, initial encounter Is this a current diagnosis for this admission?: Yes Plan: Currently on IVC. Awaiting placement. (2) Acute anoxic encephalopathy Is this a current diagnosis for this admission?: Yes Plan: Resolved (3) Hallucinations Is this a current diagnosis for this admission?: Yes Plan: Resolved (4) Agitation Is this a current diagnosis for this admission?: Yes Plan: Still with multiple medications. The patient is quite calm. He complains that the medications make him sleepy and slurred his speech. It is most likely the scheduled Thorazine. I will defer to psychiatry regarding any medication changes. (5) Choking episode Is this a current diagnosis for this admission?: Yes Plan: I did confer with nursing again today. The patient has been tolerating the full liquids with no intentional episodes of Ms. feeding. I am going to advance to a soft mechanical diet with ground meats. If he intentionally tries to induce aspiration then he will go back to full liquid diet. - Plan Summary Summary: 34-year-old male with intentional diphenhydramine overdose. He exhibited hallucinations and agitated behavior likely related to the overdose. There was felt to be a self-induced choking episode but trying to swallow a role hold. Second episode of similar behavior with eating was observed by nursing. He is currently on full liquid diet. Consider advancing to soft mechanical with ground meats. He is currently stable on his present medical regimen. He is medically cleared and there are no medical contraindications to inpatient psychiatric facility placement. The hypokalemia is likely related to dietary restrictions and will currently use low-dose potassium chloride but will add orange juice or banana daily to his diet and this should adequately compensated. 06/03/2019-medically cleared and stable for inpatient psychiatric placement - Time Time Spent with patient: Less than 15 minutes Medications reviewed and adjusted accordingly: Yes Anticipated discharge: Other - Psychiatric inpatient
--- NOTE | 2019-06-03 16:20 | PSYCHOLOGICAL NOTE ---
Psych Note - Psych Note Date seen by psych provider: 06/03/19 Time seen by psych provider: 15:30 Psych Note: Patient was provided access to his phone in order to make changes that allow his access to [facility] ([employer]). Clinician stood behind patient to v erify nothing else was accessed while patient had access to his cell phone. As soon as patient made necessary changes, cell phone was returned to clinician. Patient states he is feeling better. Patient spoke about leaving hospital and going fishing. Patient states he noticed increased drowsiness and "impaired motor skills," patient believes is due to the medications. Please no visitors for this patient updated Medication recommendations per [facility]'s contracted psychiatrist Dr Jonah KEMP are as follows Thorazine 50mg every 6 hours IM as needed Zyprexa Zydis 5mg twice daily Clonidine 0.1 mg every 12 hours as needed Depakene 500 mg twice daily Cogentin 0.5mg daily Impression\\plan: Patient is recommended for continued of IVC. [facility] with [facility]. Caicedo was consulted to care management of this patient; attending physicians in agreement with recommendations and disposition.
[2019-06-03] MEDS: OLANZAPINE 5 MG TABLET PO SCH (21:29)
[2019-06-03] MEDS: IBUPROFEN 800 MG TABLET PO PRN (21:30)
[2019-06-04 05:26] LABS: ANION GAP 9 (5-19); BLOOD UREA NITROGEN 7 mg/dL (7-20); CALCIUM 9.5 mg/dL (8.4-10.2); CARBON DIOXIDE 30 mmol/L (22-30); CHLORIDE 103 mmol/L (98-107); GLUCOSE 102 mg/dL (75-110); POTASSIUM 3.8 mmol/L (3.6-5.0)
[2019-06-04] MEDS: CLONIDINE HCL 0.2 MG TABLET PO SCH ×3 (05:38→21:11)
[2019-06-04] MEDS: VALPROATE SODIUM SYRUP 250 MG/5 ML UDCUP PO SCH ×2 (05:38→18:10)
[2019-06-04] MEDS: HEPARIN SOD (PORCINE) 5,000 UNIT/ML 1 ML VIAL SUBCUT SCH ×4 (05:38→21:14)
[2019-06-04] MEDS: CHLORPROMAZINE HCL 50 MG TABLET PO SCH ×3 (05:38→21:13)
[2019-06-04] MEDS: POTASSIUM CHLORIDE 10 MEQ TABLET.ER PO SCH (10:03)
[2019-06-04] MEDS: BENZTROPINE MESYLATE 1 MG TABLET PO SCH (10:04)
--- NOTE | 2019-06-04 13:09 | PDOC PROGRESS REPORT ---
Subjective Progress Note for:: 06/04/19 Subjective:: Patient is resting in bed. No agitation. Several questions about medications, visitation and his phone. Reason For Visit: DIPHENHYDRAMINE OVERDOSE Physical Exam Vital Signs: Temp Pulse Resp BP Pulse Ox 98.1 F 56 L 17 91/52 L 98 06/04/19 11:41 06/04/19 11:41 06/04/19 11:41 06/04/19 11:41 06/04/19 11:41 Intake & Output 06/03/19 06/04/19 06/05/19 06:59 06:59 06:59 Intake Total 759 1325 Balance 759 1325 Weight 60.5 kg 60 kg General appearance: PRESENT: no acute distress, cooperative, well-developed, wel l-nourished Head exam: PRESENT: atraumatic, normocephalic Respiratory exam: PRESENT: clear to auscultation jin, symmetrical, unlabored. ABSENT: rales, rhonchi, tachypnea, wheezes Cardiovascular exam: PRESENT: RRR, +S1, +S2, systolic murmur - 1/6 GI/Abdominal exam: PRESENT: normal bowel sounds, soft. ABSENT: distended, guarding, tenderness Rectal exam: PRESENT: deferred Gentrourinary exam: ABSENT: indwelling catheter Neurological exam: PRESENT: alert, awake, oriented to person, oriented to place, oriented to situation, CN II-XII grossly intact Psychiatric exam: PRESENT: flat affect. ABSENT: agitated, anxious Results Laboratory Results: 06/02/19 04:46 06/04/19 04:44 06/04/19 04:44 Sodium 142.4 Potassium 3.8 Chloride 103 Carbon Dioxide 30 Anion Gap 9 BUN 7 Creatinine 0.99 Est GFR ( Amer) > 60 Glucose 102 Calcium 9.5 05/26/19 05/26/19 05/26/19 14:34 14:34 20:00 Creatine Kinase 547 H 430 H CK-MB (CK-2) 2.55 Troponin I < 0.012 05/26/19 05/27/19 05/27/19 20:00 01:48 01:48 Creatine Kinase 308 H CK-MB (CK-2) 2.35 1.69 Troponin I < 0.012 < 0.012 Impressions: Chest X-Ray 05/26/19 00:00 IMPRESSION: NO ACUTE RADIOGRAPHIC FINDING IN THE CHEST. Assessment and Plan - Diagnosis (1) Intentional diphenhydramine overdose Qualifiers: Encounter type: initial encounter Qualified Code(s): T45.0X2A - Poisoning by antiallergic and antiemetic drugs, intentional self-harm, initial encounter Is this a current diagnosis for this admission?: Yes Plan: Awaiting placement. Medically stable for inpatient psychiatric care. (2) Acute metabolic encephalopathy Is this a current diagnosis for this admission?: Yes Plan: Secondary to Benadryl overdose (3) Hallucinations Is this a current diagnosis for this admission?: Yes Plan: Staff reports some confusion earlier but during this encounter no hallucinations noted. (4) Agitation Is this a current diagnosis for this admission?: Yes Plan: Continues on current medication recommendations. Will defer to psychiatry before changing medicines. (5) Choking episode Is this a current diagnosis for this admission?: Yes Plan: So far the patient has done well with soft mechanical ground meats. My concern about advancing to regular diet is that he will be able to take large boluses of food in an attempt to choke himself as exhibited earlier in this hospitalization. - Plan Summary Summary: 34-year-old male with intentional diphenhydramine overdose. He exhibited hallucinations and agitated behavior likely related to the overdose. There was felt to be a self-induced choking episode but trying to swallow a role hold. Second episode of similar behavior with eating was observed by nursing. He is currently on full liquid diet. Consider advancing to soft mechanical with ground meats. He is currently stable on his present medical regimen. He is medically cleared and there are no medical contraindications to inpatient psychiatric facility placement. The hypokalemia is likely related to dietary restrictions and will currently use low-dose potassium chloride but will add orange juice or banana daily to his diet and this should adequately compensated. 06/03/2019-medically cleared and stable for inpatient psychiatric placement - Time Time Spent with patient: Less than 15 minutes Medications reviewed and adjusted accordingly: Yes Anticipated discharge: Other - Inpatient psych
[2019-06-04] MEDS: NORMAL SALINE 1000 ML 1,000 ML IV PRN ×2 (18:28→23:33)
[2019-06-04] MEDS: IBUPROFEN 800 MG TABLET PO PRN (20:07)
[2019-06-04] MEDS: OLANZAPINE 5 MG TABLET PO SCH (21:13)
[2019-06-05] MEDS: CLONIDINE HCL 0.2 MG TABLET PO SCH ×3 (05:41→21:09)
[2019-06-05] MEDS: HEPARIN SOD (PORCINE) 5,000 UNIT/ML 1 ML VIAL SUBCUT SCH ×2 (05:42→13:16)
[2019-06-05] MEDS: CHLORPROMAZINE HCL 50 MG TABLET PO SCH ×3 (05:43→21:12)
[2019-06-05] MEDS: VALPROATE SODIUM SYRUP 250 MG/5 ML UDCUP PO SCH ×2 (05:43→17:13)
[2019-06-05] MEDS: BENZTROPINE MESYLATE 1 MG TABLET PO SCH (10:31)
[2019-06-05] MEDS: POTASSIUM CHLORIDE 10 MEQ TABLET.ER PO SCH (10:31)
--- NOTE | 2019-06-05 12:03 | PDOC PROGRESS REPORT ---
Subjective Progress Note for:: 06/05/19 Subjective:: Patient is resting comfortably. He was sleeping and awakens easily. He has no new complaints today. He still would like to see his diet advanced. Reason For Visit: DIPHENHYDRAMINE OVERDOSE Physical Exam Vital Signs: Temp Pulse Resp BP Pulse Ox 97.6 F 54 L 18 99/58 L 97 06/05/19 10:54 06/05/19 10:54 06/05/19 10:54 06/05/19 10:54 06/05/19 10:54 Intake & Output 06/04/19 06/05/19 06/06/19 06:59 06:59 06:59 Intake Total 1325 3620 360 Balance 1325 3620 360 Weight 60 kg 61.4 kg General appearance: PRESENT: no acute distress, cooperative, thin, well- developed Head exam: PRESENT: atraumatic, normocephalic Eye exam: PRESENT: conjunctiva pink. ABSENT: scleral icterus Ear exam: PRESENT: normal external ear exam. ABSENT: bleeding, drainage Respiratory exam: PRESENT: clear to auscultation jin, symmetrical, unlabored. ABSENT: rales, rhonchi, tachypnea Cardiovascular exam: PRESENT: RRR, +S1, +S2 GI/Abdominal exam: PRESENT: normal bowel sounds, soft. ABSENT: tenderness Neurological exam: PRESENT: alert, awake, oriented to person, oriented to place, oriented to situation Psychiatric exam: PRESENT: appropriate affect. ABSENT: agitated, anxious Focused psych exam: ABSENT: delusional, restlessness Skin exam: PRESENT: dry, normal color, warm, other - Multiple tattoos. ABSENT: rash Results Laboratory Results: 06/02/19 04:46 06/04/19 04:44 05/26/19 05/26/19 05/26/19 14:34 14:34 20:00 Creatine Kinase 547 H 430 H CK-MB (CK-2) 2.55 Troponin I < 0.012 05/26/19 05/27/19 05/27/19 20:00 01:48 01:48 Creatine Kinase 308 H CK-MB (CK-2) 2.35 1.69 Troponin I < 0.012 < 0.012 Impressions: Chest X-Ray 05/26/19 00:00 IMPRESSION: NO ACUTE RADIOGRAPHIC FINDING IN THE CHEST. Assessment and Plan - Diagnosis (1) Intentional diphenhydramine overdose Qualifiers: Encounter type: initial encounter Qualified Code(s): T45.0X2A - Poisoning by antiallergic and antiemetic drugs, intentional self-harm, initial encounter Is this a current diagnosis for this admission?: Yes Plan: The effects of the diphenhydramine overdose (hallucinations, dystonia, dyskinesis and agitated behavior are all found in the literature) have worn off. (2) Acute metabolic encephalopathy Is this a current diagnosis for this admission?: Yes Plan: This has resolved (3) Hallucinations Is this a current diagnosis for this admission?: Yes Plan: Secondary to diphenhydramine overdose. Resolved (4) Agitation Is this a current diagnosis for this admission?: Yes Plan: Secondary to diphenhydramine overdose resolved (5) Choking episode Is this a current diagnosis for this admission?: Yes Plan: On 2 occasions the patient was observed putting inappropriate sized foodstuffs in his mouth to induce choking. 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 A Vladimir fundoplication was performed to reduce reflux and reverse the changes of the Borja's esophagus. Although Borja's esophagus does have a slightly increased risk of malignancy at no time was the patient diagnosed with esophageal cancer. (6) Hypotension Qualifiers: Hypotension type: hypotension due to drug Qualified Code(s): I95.2 - Hypotension due to drugs Is this a current diagnosis for this admission?: Yes Plan: The patient's blood pressure has been on the low side. I will decrease his clonidine dose and continue to monitor. - Plan Summary Summary: 34-year-old male with intentional diphenhydramine overdose. He exhibited hallucinations and agitated behavior likely related to the overdose. There was felt to be a self-induced choking episode but trying to swallow a role hold. Second episode of similar behavior with eating was observed by nursing. He is currently on full liquid diet. Consider advancing to soft mechanical with ground meats. He is currently stable on his present medical regimen. He is medically cleared and there are no medical contraindications to inpatient psychiatric facility placement. The hypokalemia is likely related to dietary restrictions and will currently use low-dose potassium chloride but will add orange juice or banana daily to his diet and this should adequately compensated. 06/03/2019-medically cleared and stable for inpatient psychiatric placement 06/05/2019-unfortunately placement has been difficult. Reviewer's have focused on an active comorbidities from the patient's past as opposed to focusing on his current medical status. He has a history of supraventricular tachycardia that was successfully ablated. The patient has not exhibited any arrhythmias during his hospitalization. He carries no greater risk of arrhythmia or cardiac complication then anyone else. He has never had any diagnosis of esophageal ca ncer. 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 He has been able to maintain his weight and eat without difficulty after the Vladimir fundoplication. The patient is medically stable and [facility] There is no medical contraindication. He was on subcutaneous heparin for DVT prophylaxis and that has been discontinued as the patient is able to ambulate. - Time Time Spent with patient: 15-24 minutes Medications reviewed and adjusted accordingly: Yes Anticipated discharge: Other - Inpatient psychiatric facility
[2019-06-05] MEDS: OLANZAPINE 5 MG TABLET PO SCH (21:12)
[2019-06-05] MEDS ORDERED: TRAMADOL HCL 50 MG TABLET PO PRN (21:28)
[2019-06-05] MEDS: CLONIDINE HCL 0.1 MG TABLET PO SCH (23:39)
[2019-06-06] MEDS: IBUPROFEN 800 MG TABLET PO PRN (03:03)
[2019-06-06] MEDS: CLONIDINE HCL 0.1 MG TABLET PO SCH ×3 (05:00→21:24)
[2019-06-06] MEDS: CHLORPROMAZINE HCL 50 MG TABLET PO SCH ×2 (05:41→17:31)
[2019-06-06] MEDS: VALPROATE SODIUM SYRUP 250 MG/5 ML UDCUP PO SCH ×2 (05:42→21:24)
[2019-06-06] MEDS: BENZTROPINE MESYLATE 1 MG TABLET PO SCH (09:57)
[2019-06-06] MEDS: POTASSIUM CHLORIDE 10 MEQ TABLET.ER PO SCH (09:57)
--- NOTE | 2019-06-06 15:43 | PSYCHOLOGICAL NOTE ---
Psych Note - Psych Note Date seen by psych provider: 06/06/19 Time seen by psych provider: 13:00 Psych Note: Reason for Consult:Intentional Overdose Please no visitors or phone calls for this patient Check in conducted with patient: Patient reports he want BOTH his parents and his part of his plan of care. He states that while his and him are having difficulties and possibly , there is no separation paperwork and they are not . Patient continues to present flat and minimizes events. When discussing the two events of choking he states he is "not going to do that anymore." He requests to receive outpatient treatment. When he was reminded he has a history of noncompliance, he stated he was just waiting for an outpatient provider because he did not want to have teletherapy. When asked why he was not mediation compliant (patient was prescribed zoloft by the [facility]) he did not answer. Clinician spoke with patient's to provide her with an update in current patient's plan of care status. She confirms she has no questions at this time and thinks clinician for update as she thought she was unable to call for updates because she was told by the patient's family she was not allowed to. Clinician spoke with patient's mother to provide her with an update on current patient's plan of care status. She confirms she has no further questions at this time. updated Medication recommendations per [facility]'s contracted psychiatrist Dr Jonah KEMP are as follows Please change Thorazine 50mg to every 6 hours IM as needed Please increase Zyprexa Zydis 5mg twice daily Please decrease Clonidine to 0.1 mg every 12 hours as needed Please increase Depakene to 500 mg twice daily Continue Cogentin 0.5mg daily Impression\\plan: Patient is recommended for continued of IVC. Placement continues to be sought. Attending physician is asked to review medications; medication recommendations have been provided above. Dr. Caicedo was consulted to care management of this patient; attending physicians in agreement with recommendations and disposition.
--- NOTE | 2019-06-06 15:43 | PSYCHOLOGICAL NOTE ---
Psych Note - Psych Note Date seen by psych provider: 06/06/19 Psych Note: This patient arrived on 05/24/2019 after an intentional overdose on Benadryl. He had medical concerns when his medical treatment began; however, he has since been medically cleared since 0730 on 05/30/2019. The effects of the diphenhydramine overdose (hallucinations, dystonia, dyskinesis and agitated behavior are all found in the literature) have worn off. The patient did have 2 events of choking on food but these were behavioral and attempts at self harm. These were NOT connected to the patient's history of Borja's esophagus. This is supported by the actions and comments made by the patient. The first event on 05/28/2019, the staff got two fist sized pieces of food out of his throat but he remained choking; abdominal thrust was performed. Once the patient was calm, he then stated "you guys should have just let me . Why didn't you jut let me ." As a consequence of him shoving large amounts of food into his mouth with a second attempt at intentional choking (06/01/2019), psychiatry recommend ed placing the patient on a thick liquid diet. On 06/06/2019 he was restarted on a regular diet. During the last 4 days there has been no further behaviors or attempts at self-harm. Of further note visitor and phone restrictions were put in place secondary to observable emotional lability following interactions with his spouse and family. Note the Physician documented 06/05/2019-unfortunately placement has been difficult. Reviewer's have focused on an active comorbidities from the patient's past as opposed to focusing on his current medical status. He has a history of supraventricular tachycardia that was successfully ablated. The patient has not exhibited any arrhythmias during his hospitalization. He carries no greater risk of arrhythmia or cardiac complication then anyone else. He has never had any diagnosis of esophageal cancer. 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 He has been able to maintai n his weight and eat without difficulty after the Vladimir fundoplication. The patient is medically stable and is very appropriate for inpatient psychiatric care. There is no medical contraindication. He was on subcutaneous heparin for DVT prophylaxis and that has been discontinued as the patient is able to ambulate. In summary, this patient requires a higher level of intensive psychiatric care [facility] and he will remaine on IVC until he has been accepted to that level of psychiatric care. He remains at risk for suicide and is in need of inpatient psychiatric treatment to address his ongoing symptoms.
--- NOTE | 2019-06-06 18:44 | PDOC PROGRESS REPORT ---
Subjective Progress Note for:: 06/06/19 Subjective:: He is very upset and abrasive today Reason For Visit: DIPHENHYDRAMINE OVERDOSE Physical Exam Vital Signs: Temp Pulse Resp BP Pulse Ox 98.5 F 73 16 103/65 100 06/06/19 15:24 06/06/19 15:24 06/06/19 15:24 06/06/19 15:24 06/06/19 15:24 Intake & Output 06/05/19 06/06/19 06/07/19 06:59 06:59 06:59 Intake Total 3620 1450 1350 Balance 3620 1450 1350 Weight 61.4 kg 60 kg General appearance: PRESENT: severe distress Respiratory exam: PRESENT: clear to auscultation jin. ABSENT: rales, rhonchi, wheezes Cardiovascular exam: PRESENT: tachycardia GI/Abdominal exam: PRESENT: normal bowel sounds, soft. ABSENT: tenderness Psychiatric exam: PRESENT: agitated Results Laboratory Results: 06/02/19 04:46 06/04/19 04:44 05/26/19 05/26/19 05/26/19 14:34 14:34 20:00 Creatine Kinase 547 H 430 H CK-MB (CK-2) 2.55 Troponin I < 0.012 05/26/19 05/27/19 05/27/19 20:00 01:48 01:48 Creatine Kinase 308 H CK-MB (CK-2) 2.35 1.69 Troponin I < 0.012 < 0.012 Impressions: Chest X-Ray 05/26/19 00:00 IMPRESSION: NO ACUTE RADIOGRAPHIC FINDING IN THE CHEST. Assessment and Plan - Diagnosis (1) Intentional diphenhydramine overdose Qualifiers: Encounter type: initial encounter Qualified Code(s): T45.0X2A - Poisoning by antiallergic and antiemetic drugs, intentional self-harm, initial encounter Is this a current diagnosis for this admission?: Yes (2) Acute metabolic encephalopathy Is this a current diagnosis for this admission?: Yes (3) Hallucinations Is this a current diagnosis for this admission?: Yes (4) Agitation Is this a current diagnosis for this admission?: Yes (5) Choking episode Is this a current diagnosis for this admission?: Yes (6) Hypotension Qualifiers: Hypotension type: hypotension due to drug Qualified Code(s): I95.2 - Hypotension due to drugs Is this a current diagnosis for this admission?: Yes - Plan Summary Summary: 34-year-old male with intentional diphenhydramine overdose. He exhibited hallucinations and agitated behavior likely related to the overdose. There was felt to be a self-induced choking episode but trying to swallow a role hold. Second episode of similar behavior with eating was observed by nursing. He is currently on full liquid diet. Consider advancing to soft mechanical with ground meats. He is currently stable on his present medical regimen. He is medically cleared and there are no medical contraindications to inpatient psychiatric facility placement. The hypokalemia is likely related to dietary restrictions and will currently use low-dose potassium chloride but will add orange juice or banana daily to his diet and this should adequately compensated. 06/03/2019-medically cleared and stable for inpatient psychiatric placement 06/05/2019-unfortunately placement has been difficult. Reviewer's have focused on an active comorbidities from the patient's past as opposed to focusing on his current medical status. He has a history of supraventricular tachycardia that was successfully ablated. The patient has not exhibited any arrhythmias during his hospitalization. He carries no greater risk of arrhythmia or cardiac complication then anyone else. He has never had any diagnosis of esophageal cancer. 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 He has been able to maintain his weight and eat without difficulty after the Vladimir fundoplication. The patient is medically stable and is very appropriate for inpatient psychiatric care. There is no medical contraindication. He was on subcutaneous heparin for DVT prophylaxis and that has been discontinued as the patient is able to ambulate. 06/06/2019-adjusted medications somewhat. Still waiting for placement. The patient has been very frustrated and upset. Today he was upset with me and his nurse because we reinforced the no visitor policy as well as explained to him that his IVC was still in place. - Time Time Spent with patient: 15-24 minutes Medications reviewed and adjusted accordingly: Yes
[2019-06-06] MEDS: OLANZAPINE 5 MG TABLET PO SCH (19:29)
[2019-06-06] MEDS: CHLORPROMAZINE HCL 50 MG TABLET PO PRN (21:24)
[2019-06-07] MEDS: CLONIDINE HCL 0.1 MG TABLET PO SCH ×3 (05:39→22:20)
[2019-06-07] MEDS: POTASSIUM CHLORIDE 10 MEQ TABLET.ER PO SCH (09:16)
[2019-06-07] MEDS: OLANZAPINE 5 MG TABLET PO SCH ×2 (09:16→18:12)
[2019-06-07] MEDS: BENZTROPINE MESYLATE 1 MG TABLET PO SCH (09:17)
[2019-06-07] MEDS: VALPROATE SODIUM SYRUP 250 MG/5 ML UDCUP PO SCH ×2 (09:18→22:19)
[2019-06-07] MEDS ORDERED: ONDANSETRON HCL INJ/PF 4 MG/2 ML SDV IV PRN (10:32)
[2019-06-07] MEDS ORDERED: ONDANSETRON HCL INJ/PF 4 MG/2 ML SDV ONE (10:32)
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
[2019-06-07] MEDS: CHLORPROMAZINE HCL 50 MG TABLET PO PRN (17:04)
[2019-06-07] MEDS ORDERED: CHLORPROMAZINE HCL 25 MG TABLET PO SCH (22:00)
[2019-06-07] MEDS ORDERED: CHLORPROMAZINE HCL 50 MG TABLET PO ONE (22:30)
[2019-06-08] MEDS: CLONIDINE HCL 0.1 MG TABLET PO SCH ×3 (06:13→22:03)
--- NOTE | 2019-06-08 08:42 | RADIOLOGY REPORT (SQ) ---
EXAM DESCRIPTION: CT HEAD WITHOUT COMPLETED DATE/TIME: 06/08/2019 8:20 am REASON FOR STUDY: AMS COMPARISON: None. TECHNIQUE: Axial images acquired through the brain without intravenous contrast. Images reviewed wi th bone, brain and subdural windows. Additional sagittal and coronal reconstructions were generated. Images stored on PACS. All CT scanners at this facility use dose modulation, iterative reconstruction, and/or weight based d osing when appropriate to reduce radiation dose to as low as reasonably achievable (ALARA). [facility]: Dose Right [facility]: CareDose [facility]: Dose Right [facility]: Teradose 4D [facility]: Yecuris RADIATION DOSE: CT Rad equipment meets quality standard of care and radiation dose reduction techniq ues were employed. CTDIvol: 48.6 mGy. DLP: 880 mGy-cm. mGy. LIMITATIONS: None. FINDINGS: VENTRICLES: Normal size and contour. CEREBRUM: No masses. No hemorrhage. No midline shift. No evidence for acute infarction. Normal gra y/white matter differentiation. No areas of low density in the white matter. CEREBELLUM: No masses. No hemorrhage. No alteration of density. No evidence for acute infarction. EXTRAAXIAL SPACES: No fluid collections. No masses. ORBITS AND GLOBE: No intra- or extraconal masses. Normal contour of globe without masses. CALVARIUM: No fracture. PARANASAL SINUSES: No fluid or mucosal thickening. SOFT TISSUES: No mass or hematoma. OTHER: No other significant finding. IMPRESSION: NORMAL BRAIN CT WITHOUT CONTRAST. EVIDENCE OF ACUTE STROKE: NO. COMMENT: Quality ID # [id number]: Final reports with documentation of one or more dose reduction techniques (e.g., Automated exposure control, adjustment of the mA and/or kV according to patient size, use of iterative reconstruction technique) TECHNICAL DOCUMENTATION: JOB ID: [id number] [employer]- All Rights Reserved Reading location - IP/workstation name: [email or web address]
[2019-06-08 08:52] LABS: APPEARANCE,URINE SLIGHTLY-CLOUDY; BILIRUBIN,URINE NEGATIVE (NEGATIVE); COLOR,URINE YELLOW; GLUCOSE, URINE NEGATIVE (NEGATIVE); KETONES,URINE NEGATIVE (NEGATIVE); LEUKOCYTE ESTERASE,URINE NEGATIVE (NEGATIVE); NITRITE,URINE NEGATIVE (NEGATIVE); PROTEIN,URINE NEGATIVE (NEGATIVE); URINE SPECIFIC GRAVITY 1.018; UROBILINOGEN,URINE NEGATIVE mg/dL (<2.0)
[2019-06-08] MEDS: BENZTROPINE MESYLATE 1 MG TABLET PO SCH (09:17)
[2019-06-08] MEDS: VALPROATE SODIUM SYRUP 250 MG/5 ML UDCUP PO SCH ×2 (09:17→22:02)
[2019-06-08] MEDS: POTASSIUM CHLORIDE 10 MEQ TABLET.ER PO SCH (09:18)
[2019-06-08] MEDS: OLANZAPINE 5 MG TABLET PO SCH ×2 (09:19→17:26)
[2019-06-08] MEDS: CHLORPROMAZINE HCL 25 MG TABLET PO SCH ×2 (09:23→22:01)
[2019-06-08] MEDS ORDERED: CHLORPROMAZINE HCL 50 MG TABLET PO SCH (10:00)
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
[2019-06-08] MEDS: NICOTINE 21 MG/24 HR PATCH.TD24 TD SCH (18:21)
[2019-06-08] MEDS: IBUPROFEN 800 MG TABLET PO PRN (20:43)
[2019-06-08] MEDS: TRAMADOL HCL 50 MG TABLET PO PRN (22:01)
[2019-06-09] MEDS: CLONIDINE HCL 0.1 MG TABLET PO SCH ×3 (06:24→22:48)
[2019-06-09] MEDS: POTASSIUM CHLORIDE 10 MEQ TABLET.ER PO SCH (09:22)
[2019-06-09] MEDS: BENZTROPINE MESYLATE 1 MG TABLET PO SCH (09:22)
[2019-06-09] MEDS: OLANZAPINE 5 MG TABLET PO SCH ×2 (09:22→17:23)
[2019-06-09] MEDS: NICOTINE 21 MG/24 HR PATCH.TD24 TD SCH (09:22)
[2019-06-09] MEDS: VALPROATE SODIUM SYRUP 250 MG/5 ML UDCUP PO SCH ×2 (09:23→22:48)
[2019-06-09] MEDS: CHLORPROMAZINE HCL 25 MG TABLET PO SCH ×2 (09:24→22:48)
[2019-06-09] MEDS: IBUPROFEN 800 MG TABLET PO PRN (09:32)
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
--- NOTE | 2019-06-09 19:16 | PSYCHOLOGICAL NOTE ---
Psych Note - Psych Note Date seen by psych provider: 06/09/19 Time seen by psych provider: 16:45 Psych Note: Check in conducted with patient. Patient requests discharge. Patient states that he has bills he needs to pay so he needs to go to work. Patient expressed concern that "everything I have will be gone" if he he is unable to return to work. Clinician reaffirmed that patient will maintain on IVC until placed. Patient continue to list excuses and bargain for discharge. Patient verbalized how unfair it was that he was being maintained on IVC. Clinician redirected conversation back to patient's significant suicide attempt that resulted in his admission to the hospital and subsequent IVC. Patient requested access to his phone in order to face time his son. Clinician informed patient his request would be discussed with his treatment team. Patient requested to speak with an consumer attorney regarding his IVC. Patient was informed that that concern would be discussed with the treatment team. Clinician discussed patient's request for cell phone and consumer attorney with Dr. Caicedo, who subsequently denied patient's request due to having less than 48 hours without a behavioral episode. Clinician contacted patient's mother as requested at approximately 5:45 PM. Clinician apologized for the late phone call and explained to mother that although she was informed to expect a phone call by 5:00 it may be a little bit later depending on the caseload in the ED. Mother was informed that clinician had a productive conversation with patient and the patient is doing well. Mother was informed that there may not be much change in patient's status from day to day. Mother expressed understanding and thanked clinician for phone call. Clinician contacted patient's nurse to make them aware of behavioral health team's decision not to allow cell phone use at this time. patient requires a higher level of intensive psychiatric care than an acute MEDICAL hospital can provide and he will remain on IVC until he has been accepted to that level of psychiatric care. He remains at risk for suicide and is in need of inpatient psychiatric treatment to address his ongoing symptoms.
[2019-06-09] MEDS ORDERED: CALCIUM CARBONATE 500 MG TAB.CHEW PO PRN (22:02)
[2019-06-09] MEDS: TRAMADOL HCL 50 MG TABLET PO PRN (22:50)
[2019-06-10] MEDS: CLONIDINE HCL 0.1 MG TABLET PO SCH ×3 (06:46→21:51)
[2019-06-10] MEDS: TRAMADOL HCL 50 MG TABLET PO PRN ×2 (08:06→17:24)
[2019-06-10] MEDS: POTASSIUM CHLORIDE 10 MEQ TABLET.ER PO SCH (09:19)
[2019-06-10] MEDS: OLANZAPINE 5 MG TABLET PO SCH ×2 (09:19→17:21)
[2019-06-10] MEDS: CHLORPROMAZINE HCL 25 MG TABLET PO SCH ×2 (09:19→21:51)
[2019-06-10] MEDS: BENZTROPINE MESYLATE 1 MG TABLET PO SCH (09:19)
[2019-06-10] MEDS: VALPROATE SODIUM SYRUP 250 MG/5 ML UDCUP PO SCH ×2 (09:20→21:51)
[2019-06-10] MEDS: NICOTINE 21 MG/24 HR PATCH.TD24 TD SCH (09:21)
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
--- NOTE | 2019-06-10 16:45 | PSYCHOLOGICAL NOTE ---
Psych Note - Psych Note Date seen by psych provider: 06/10/19 Time seen by psych provider: 15:00 Psych Note: Reason for Consult:Intentional Overdose Please no visitors or phone calls for this patient Check in conducted with patient: Patient engaged will with patient. He requested phone call with his parents. Clinician facilitated supervised call with parents and patient. Prior to phone, clinician discussed with patient's parents the importance of maintaining a therapeutic conversation, outlined length of phone call today will be 10 minutes and if patient is emotionally unable to maintain to appropriate conversations and control his emotions conversation will have to be terminated. Patient's parents agree. Clinician discussed these rules with patient prior to phone call after discussion with parents; he agrees. Phone call was made. Conversation went well. Clinician spent some time discussing the importance of processing emotions and discussing previous events after having contact with loved ones resulting in emotional upheaval. Patient became tearful and confirmed he does not process his emotions well. 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 He states that it is very weird sitting on the other side but agrees it is because he is always thinking of others and other things instead of his own issues. He reports he has demons from the past and feels that it is difficult to sometimes move forward however is tired of always looking back. Patient does not go into detail what his "demons." Patient asks for the privilege of his cell phone so he can transfer money to ensure his is okay. Clinician unfortunately had to decline however was able to reach out to patient's for patient. Clinician spoke with patient's to provide her with an update in current queta roberto's plan of care status. She reports that financially it is tight however all the bills are paid and they are doing okay. She reports she just wants to focus on the patient getting better and asked the clinician to tell the patient that she is very proud of him for finally getting help. updated Medication recommendations per [facility]'s contracted psychiatrist Dr Jonah KEMP are as follows Please change Thorazine 50mg to every 6 hours PO Scheduled Please increase Zyprexa Zydis 5mg twice daily Please decrease Clonidine to 0.1 mg every 12 hours as needed Please increase Depakene to 500 mg twice daily Continue Cogentin 0.5mg daily Impression\\plan: Patient is recommended for continued of IVC. Placement continues to be sought; unfortunately, it has been still been unsuccessful. Dr. Caicedo was consulted to care management of this patient; attending physicians in agreement with recommendations and disposition.
[2019-06-10] MEDS: IBUPROFEN 800 MG TABLET PO PRN (21:51)
[2019-06-11] MEDS: CLONIDINE HCL 0.1 MG TABLET PO SCH ×3 (05:39→21:18)
[2019-06-11] MEDS ORDERED: CHLORPROMAZINE HCL 25 MG TABLET PO SCH (09:45)
[2019-06-11] MEDS: BENZTROPINE MESYLATE 1 MG TABLET PO SCH (10:05)
[2019-06-11] MEDS: OLANZAPINE 5 MG TABLET PO SCH ×2 (10:05→18:48)
[2019-06-11] MEDS: POTASSIUM CHLORIDE 10 MEQ TABLET.ER PO SCH (10:05)
[2019-06-11] MEDS: NICOTINE 21 MG/24 HR PATCH.TD24 TD SCH (10:07)
[2019-06-11] MEDS: VALPROATE SODIUM SYRUP 250 MG/5 ML UDCUP PO SCH ×2 (10:07→21:18)
[2019-06-11] MEDS: TRAMADOL HCL 50 MG TABLET PO PRN ×2 (10:11→18:50)
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
[2019-06-11] MEDS: CHLORPROMAZINE HCL 25 MG TABLET PO SCH ×2 (14:48→21:22)
--- NOTE | 2019-06-11 17:07 | PSYCHOLOGICAL NOTE ---
Psych Note - Psych Note Date seen by psych provider: 06/11/19 Time seen by psych provider: 16:30 Psych Note: Reason for Consult:Intentional Overdose Please no visitors or phone calls for this patient Check in conducted with patient: Patient engaged will with patient. Clinician facilitated supervised call with patient and his and son. Prior to phone, clinician discussed with patient's the importance of maintaining a therapeutic conversation, outlined length of phone call today will be 10 minutes and if patient is emotionally unable to maintain to appropriate conversations and control his emotions conversation will have to be terminated. Patient's agree. Clinician reminded these rules with patient prior to phone call after discussion with ; he agrees. Phone call was made. Conversation went well. Clinician spoke with patient's mother to provide her with an update in current patient's plan of care status. updated Medication recommendations per [facility]'s contracted psychiatrist Dr Jonah KEMP are as follows Please change Thorazine 50mg to every 6 hours PO Scheduled Please increase Zyprexa Zydis 5mg twice daily Please decrease Clonidine to 0.1 mg every 12 hours as needed Please increase Depakene to 500 mg twice daily Continue Cogentin 0.5mg daily Impression\plan: Patient is recommended for continued of IVC. Placement continues to be sought; unfortunately, it has been still been unsuccessful. Dr. Caicedo was consulted to care management of this patient; attending physicians in agreement with recommendations and disposition.
--- NOTE | 2019-06-12 09:56 | PSYCHOLOGICAL NOTE ---
Psych Note - Psych Note Date seen by psych provider: 06/12/19 Time seen by psych provider: 09:55 Psych Note: Check in was conducted with patient. Clinician entered room and was greeted with a pleasant toned "hey woman." Nursing staff came in to change linens, so clinician stated she would return. Clinician went back to patient's room. Clinician notes patient's now irritable mood. Patient expressed frustration with remaining in the hospital. Patient demanded access to law enforcement, spoke of how his rights are being violated, the IVC was invalid, lack of communication with family, supervised communication with family, loss of employment and the financial cost of hospital stay. Patient states he continues to "feel slowed down." Informed patient he was given Thorazine prior to updated medication recommendations, and informed him he should receive the adjusted dose this evening. Patient was informed that the IVC has never lapsed and has maintained to be valid his entire hospitalization, while he is on IVC he is not granted access to law enforcement officials or real estate associate attorney, and his calls will remain supervised due to his behavior. Clinician remarked that this is the type of behavior is concerning and lets us know discharge is not in your best interest. Clinician explained his treatment at the hospital is a clinician issue not legal issue. Patient appeared to calm down. Patient spoke with his and mother while clinician was in the room. Before patient was given nursing phone to speak with family, clinician spoke with and mother and explained the rules (if patient becomes emotionally charged phone call will cease, any legal conversations will cease phone calls); both verbalized understanding. After phone calls, patient and clinician engaged in small talk ([employer] stuff). Patient spoke of having to be "Sgt. Asshole" to get his point across. Clinician utilized Rogerian techniques to describe different communication styles for different situations. Clinician had a productive conversation with patient regarding healthy, collaborative conversations to relay needs, wants, and desires. Patient was receptive. Clinician provided patient with worksheets on emotional regulation techniques, identifying triggers, and healthy versus unhealthy communication techniques. Clinician encouraged patient to engage with with material. Clinician stated she would discuss information with him tomorrow. Patient was receptive. Clinician spoke with patient's and mother at approximately 2:40pm. Mother stated she had no issues or concerns at this time and remarked that patient "seemed better." Patient's stated her only concern is getting patient to understand that, if the suicide attempt was an attempt to manipulate her, it would not work as she is moving forward with the separation. Clinician spoke with Dr. Ferreira regarding updated medication recommendations. updated Medication recommendations per [facility]'s contracted psychiatrist Dr Jonah EKMP are as follows Please decrease Thorazine to 25mg to every 6 hours Scheduled Continue Zyprexa Zydis 5mg twice daily Continue Clonidine to 0.1 mg every 12 hours as needed Continue Depakene to 500 mg twice daily Continue Cogentin 0.5mg daily Impression\\plan: Patient is recommended for continued of IVC. Placement continues to be sought; unfortunately, it has been still been unsuccessful. Dr. Caicedo was consulted to care management of this patient; attending physicians in agreement with recommendations and disposition.
[2019-06-12] MEDS: NICOTINE 21 MG/24 HR PATCH.TD24 TD SCH (10:23)
[2019-06-12] MEDS: POTASSIUM CHLORIDE 10 MEQ TABLET.ER PO SCH (10:23)
[2019-06-12] MEDS: CLONIDINE HCL 0.1 MG TABLET PO SCH ×2 (10:23→21:42)
[2019-06-12] MEDS: OLANZAPINE 5 MG TABLET PO SCH ×2 (10:23→17:44)
[2019-06-12] MEDS: BENZTROPINE MESYLATE 1 MG TABLET PO SCH (10:23)
[2019-06-12] MEDS: VALPROATE SODIUM SYRUP 250 MG/5 ML UDCUP PO SCH ×2 (10:25→21:43)
[2019-06-12] MEDS: CHLORPROMAZINE HCL 25 MG TABLET PO SCH ×2 (10:27→17:44)
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
[2019-06-12] MEDS: FAMOTIDINE INJ/PF 20 MG/2 ML SDV IV SCH ×3 (17:44→21:58)
[2019-06-12] MEDS ORDERED: LITHIUM CARBONATE 300 MG CAPSULE PO ONE (20:15)
[2019-06-13] MEDS: CHLORPROMAZINE HCL 25 MG TABLET PO SCH ×4 (00:58→17:10)
[2019-06-13] MEDS: CLONIDINE HCL 0.1 MG TABLET PO SCH (09:49)
[2019-06-13] MEDS: POTASSIUM CHLORIDE 10 MEQ TABLET.ER PO SCH (09:50)
[2019-06-13] MEDS: LITHIUM CARBONATE 450 MG TABLET.ER PO SCH ×2 (09:50→21:44)
[2019-06-13] MEDS: OLANZAPINE 5 MG TABLET PO SCH ×2 (09:50→17:10)
[2019-06-13] MEDS: NICOTINE 21 MG/24 HR PATCH.TD24 TD SCH (09:50)
[2019-06-13] MEDS: VALPROATE SODIUM SYRUP 250 MG/5 ML UDCUP PO SCH ×2 (09:51→21:44)
[2019-06-13] MEDS: BENZTROPINE MESYLATE 1 MG TABLET PO SCH (09:51)
[2019-06-13] MEDS: FAMOTIDINE INJ/PF 20 MG/2 ML SDV IV SCH ×2 (10:47→21:44)
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
[2019-06-13] MEDS ORDERED: HALOPERIDOL LACTATE INJ 5 MG/1 ML VIAL IV PRN (17:45)
[2019-06-13] MEDS ORDERED: LORAZEPAM INJ 2 MG/1 ML VIAL IV PRN (17:46)
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
[2019-06-14] MEDS: CHLORPROMAZINE HCL 25 MG TABLET PO SCH ×4 (00:19→17:11)
[2019-06-14 08:54] LABS: ABSOLUTE EOSINOPHILS # (AUTO) 0.2 10^3/uL (0.0-0.6); ABSOLUTE LYMPHOCYTES (AUTO) 1.1 10^3/uL (0.5-4.7); ABSOLUTE NEUT (AUTO) 6.2 10^3/uL (1.7-8.2); ALBUMIN 3.9 g/dL (3.5-5.0); ALKALINE PHOSPHATASE 79 U/L (38-126); ANION GAP 15 (5-19); ASPARTATE AMINO TRANSFERASE 19 U/L (17-59); BILIRUBIN,DIRECT 0.2 mg/dL (0.0-0.4); BILIRUBIN,TOTAL 0.4 mg/dL (0.2-1.3); BLOOD UREA NITROGEN 15 mg/dL (7-20); CALCIUM 9.5 mg/dL (8.4-10.2); CARBON DIOXIDE 22 mmol/L (22-30); CHLORIDE 102 mmol/L (98-107); EOSINOPHILS % (AUTO) 2.6 % (0-6); GLUCOSE 82 mg/dL (75-110); POTASSIUM 4.2 mmol/L (3.6-5.0); RED CELL DISTRIBUTION WIDTH 13.1 % (11.5-14.0); TOTAL CELLS COUNTED % (AUTO) 100 %; TOTAL PROTEIN 6.8 g/dL (6.3-8.2); WHITE BLOOD COUNT 8.5 10^3/uL (4.0-10.5)
[2019-06-14 08:59] LABS: ABSOLUTE MONOCYTES (AUTO) 0.9 10^3/uL (0.1-1.4); BASOPHILS % (AUTO) 0.3 % (0-2); HEMATOCRIT 37.6 % (37.9-51.0); HEMOGLOBIN 13.2 g/dL (13.5-17.0); LYMPHOCYTES % (AUTO) 12.6 % (13-45); MEAN CORPUSCULAR HEMOGLOBIN 31.1 pg (27.0-33.4); MEAN CORPUSCULAR HGB CONC 35.2 g/dL (32.0-36.0); MEAN CORPUSCULAR VOLUME 89 fl (80-97); MONOCYTES % (AUTO) 11.2 % (3-13); PLATELET COUNT 244 10^3/uL (150-450); RED BLOOD COUNT 4.26 10^6/uL (4.35-5.55); SEGMENTED NEUTROPHILS % (AUTO) 73.3 % (42-78)
[2019-06-14] MEDS: NICOTINE 21 MG/24 HR PATCH.TD24 TD SCH (09:23)
[2019-06-14] MEDS: BENZTROPINE MESYLATE 1 MG TABLET PO SCH (09:23)
[2019-06-14] MEDS: FAMOTIDINE INJ/PF 20 MG/2 ML SDV IV SCH ×2 (09:23→21:43)
[2019-06-14] MEDS: LITHIUM CARBONATE 450 MG TABLET.ER PO SCH (09:23)
[2019-06-14] MEDS: POTASSIUM CHLORIDE 10 MEQ TABLET.ER PO SCH (09:23)
[2019-06-14] MEDS: OLANZAPINE 5 MG TABLET PO SCH ×2 (09:23→17:11)
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
[2019-06-14] MEDS: VALPROATE SODIUM SYRUP 250 MG/5 ML UDCUP PO SCH ×2 (10:27→21:42)
--- NOTE | 2019-06-14 14:01 | PSYCHOLOGICAL NOTE ---
Psych Note - Psych Note Date seen by psych provider: 06/14/19 Time seen by psych provider: 11:00 Psych Note: Patient was asleep when clinician entered the room. Sitter stated patient had been resting most of the day. Patient was easily arousable with verbal stimuli. Patient grabbed his stomach and tossed and turned in the bed stating his stomach hurt. Patient stated the pain began "15 minutes ago." Clinician attempted to revisit yesterday's events with patient. Patient would not engage. Patient stated he would "be calling his commonwealth attorney and will be leaving Saturday." Patient stated that was not happening. Patient appeared drowsy during the check in. Updated 06/14/2019 Medication recommendations per [facility]'s contracted psychiatrist Dr Jonah KEMP are as follows Adjust Thorazine to 100MG, twice a day Continue Zyprexa Zydis 5mg twice daily Continue Clonidine to 0.1 mg every 12 hours as needed Continue Depakene to 500 mg twice daily Continue Cogentin 0.5mg daily Clinician spoke with Dr. Robsion regarding adjustment of Thorazine. Impression\\plan: Patient is recommended for continued of IVC. Placement continues to be sought; unfortunately, it has been still been unsuccessful. Dr. Caicedo was consulted to care management of this patient; attending physicians in agreement with recommendations and disposition.
[2019-06-14] MEDS: IBUPROFEN 800 MG TABLET PO PRN (16:33)
[2019-06-14] MEDS ORDERED: LITHIUM CARBONATE 300 MG CAPSULE PO ONE ×2 (20:39→23:30)
[2019-06-14] MEDS ORDERED: LITHIUM CARBONATE 300 MG CAPSULE ONE ×2 (23:05→23:06)
[2019-06-15] MEDS ORDERED: LITHIUM CARBONATE 300 MG CAPSULE PO SCH (06:00)
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
[2019-06-15] MEDS: VALPROATE SODIUM SYRUP 250 MG/5 ML UDCUP PO SCH ×2 (09:41→22:54)
[2019-06-15] MEDS: FAMOTIDINE INJ/PF 20 MG/2 ML SDV IV SCH ×2 (09:41→22:54)
[2019-06-15] MEDS: BENZTROPINE MESYLATE 1 MG TABLET PO SCH (09:41)
[2019-06-15] MEDS: CHLORPROMAZINE HCL 25 MG TABLET PO SCH ×2 (09:41→17:10)
[2019-06-15] MEDS: OLANZAPINE 5 MG TABLET PO SCH ×2 (09:41→17:11)
[2019-06-15] MEDS: NICOTINE 21 MG/24 HR PATCH.TD24 TD SCH (09:41)
[2019-06-15] MEDS: POTASSIUM CHLORIDE 10 MEQ TABLET.ER PO SCH (09:41)
--- NOTE | 2019-06-15 13:06 | EKG REPORT ---
SEVERITY:- BORDERLINE ECG - SINUS RHYTHM SHORT MN INTERVAL, ACCELERATED AV CONDUCTION : Confirmed by: Tomi Hammond MD 15-Jun-2019 13:05:40
--- NOTE | 2019-06-15 17:59 | PSYCHOLOGICAL NOTE ---
Psych Note - Psych Note Date seen by psych provider: 06/15/19 Time seen by psych provider: 12:00 Psych Note: Reason for Consult:Intentional Overdose Please no visitors or phone calls for this patient Check in conducted with patient: Patient is very tired and has difficultly engaging with clinician. Clinician contacted both patient's parents and to provide updates on patient's status Psychiatric mediations were altered without psychiatric input which has resulted in [place] toxicity and an increase in QT intervals; as such consulting psychiatrist recommends the following medication regiment going forward: Discontinue Haldol Discontinue Please do not restart [place] Discontinue Zyprexa ADD Clonidine to 0.2 mg 24 hr transdermal patch Increase Cogentin to 1mg daily Continue Thorazine to 100mg twice daily Continue Depakene to 500 mg twice daily When lithium is below therapeutic range- Start Buspar 10mg Twice daily ADD Rispurdone 0.5mg every 8 hours as needed for aggression Impression\plan: Patient is recommended for continued of IVC. Placement continues to be sought; unfortunately, it has been still been unsuccessful. Patient's IVC was renewed today and placed in chart. Dr. Caicedo was consulted to care management of this patient; attending physicians in agreement with recommendations and disposition.
[2019-06-16] MEDS ORDERED: CLONIDINE 0.2 MG/24 HR PATCH.TDWK TD SCH (10:00)
[2019-06-16] MEDS: VALPROATE SODIUM SYRUP 250 MG/5 ML UDCUP PO SCH ×2 (10:01→21:42)
[2019-06-16] MEDS: POTASSIUM CHLORIDE 10 MEQ TABLET.ER PO SCH (10:01)
[2019-06-16] MEDS: FAMOTIDINE INJ/PF 20 MG/2 ML SDV IV SCH ×2 (10:01→21:42)
[2019-06-16] MEDS: NICOTINE 21 MG/24 HR PATCH.TD24 TD SCH (10:01)
[2019-06-16] MEDS: CHLORPROMAZINE HCL 25 MG TABLET PO SCH ×2 (10:07→17:24)
--- NOTE | 2019-06-16 14:51 | PDOC PROGRESS REPORT ---
Subjective Progress Note for:: 06/16/19 Reason For Visit: DIPHENHYDRAMINE OVERDOSE 06/16/2019 Patient was originally admitted 1229 with a Benadryl overdose. Patient has been IVC by psychiatry Physical Exam Vital Signs: Temp Pulse Resp BP Pulse Ox 98.5 F 101 H 15 109/72 100 06/16/19 10:37 06/16/19 10:37 06/16/19 10:37 06/16/19 10:37 06/16/19 10:37 Intake & Output 06/15/19 06/16/19 06/17/19 06:59 06:59 06:59 Intake Total 1062 1062 Output Total 0 200 Balance 1062 862 Weight 59.7 kg 59.1 kg General appearance: PRESENT: mild distress Respiratory exam: PRESENT: clear to auscultation jin. ABSENT: rales, rhonchi, wheezes Cardiovascular exam: PRESENT: RRR. ABSENT: diastolic murmur, rubs, systolic murmur Neurological exam: PRESENT: alert, awake, oriented to person, oriented to place, oriented to time, oriented to situation, CN II-XII grossly intact. ABSENT: motor sensory deficit Psychiatric exam: PRESENT: depressed, flat affect Results Laboratory Results: 06/14/19 08:07 06/14/19 08:07 05/26/19 05/26/19 05/26/19 14:34 14:34 20:00 Creatine Kinase 547 H 430 H CK-MB (CK-2) 2.55 Troponin I < 0.012 05/26/19 05/27/19 05/27/19 20:00 01:48 01:48 Creatine Kinase 308 H CK-MB (CK-2) 2.35 1.69 Troponin I < 0.012 < 0.012 Impressions: Chest X-Ray 05/26/19 00:00 IMPRESSION: NO ACUTE RADIOGRAPHIC FINDING IN THE CHEST. Head CT 06/08/19 09:00 IMPRESSION: NORMAL BRAIN CT WITHOUT CONTRAST. EVIDENCE OF ACUTE STROKE: NO. Assessment and Plan - Diagnosis (1) Acute metabolic encephalopathy Is this a current diagnosis for this admission?: Yes (2) Agitation Is this a current diagnosis for this admission?: Yes (3) Hallucinations Is this a current diagnosis for this admission?: Yes (4) Intentional diphenhydramine overdose Qualifiers: Encounter type: initial encounter Qualified Code(s): T45.0X2A - Poisoning by antiallergic and antiemetic drugs, intentional self-harm, initial encounter Is this a current diagnosis for this admission?: Yes (5) [place] toxicity Is this a current diagnosis for this admission?: Yes (6) Overdose Qualifiers: Encounter type: initial encounter Injury intent: intentional self-harm Qualified Code(s): T50.902A - Poisoning by unspecified drugs, medicaments and biological substances, intentional self-harm, initial encounter Is this a current diagnosis for this admission?: Yes (7) Severe major depression with psychotic features Is this a current diagnosis for this admission?: Yes (8) Suicidal ideations Is this a current diagnosis for this admission?: Yes - Plan Summary Summary: 34-year-old male with intentional diphenhydramine overdose. He exhibited hallucinations and agitated behavior likely related to the overdose. There was felt to be a self-induced choking episode but trying to swallow a role hold. Second episode of similar behavior with eating was observed by nursing. He is currently on full liquid diet. Consider advancing to soft mechanical with ground meats. He is currently stable on his present medical regimen. He is medically cleared and there are no medical contraindications to inpatient psychiatric facility placement. The hypokalemia is likely related to dietary restrictions and will currently use low-dose potassium chloride but will add orange juice or banana daily to his diet and this should adequately compensated. 06/03/2019-medically cleared and stable for inpatient psychiatric placement 06/05/2019-unfortunately placement has been difficult. Reviewer's have focused on an active comorbidities from the patient's past as opposed to focusing on his current medical status. He has a history of supraventricular tachycardia that was successfully ablated. The patient has not exhibited any arrhythmias during his hospitalization. He carries no greater risk of arrhythmia or cardiac complication then anyone else. He has never had any diagnosis of esophageal cancer. 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 He has been able to zenia ntain his weight and eat without difficulty after the Vladimir fundoplication. The patient is medically stable and is very appropriate for inpatient psychiatric care. There is no medical contraindication. He was on subcutaneous heparin for DVT prophylaxis and that has been discontinued as the patient is able to ambulate. 06/06/2019-adjusted medications somewhat. Still waiting for placement. The patient has been very frustrated and upset. Today he was upset with me and his nurse because we reinforced the no visitor policy as well as explained to him that his IVC was still in place. 06/16/2019 Patient is currently waiting on IVC placement She appears to be hemodynamically stable. Yesterday lithium level was 1.8 today it is 1.3. Just slightly high Patient could go to psychiatric inpatient facility as soon as bed is available I have made most of the medication changes as recommended by psychiatry the exception of not starting the BuSpar yet I have ordered risperdol as a prn - Time Time Spent with patient: 25-34 minutes
[2019-06-16] MEDS ORDERED: RISPERIDONE 0.25 MG TABLET PO PRN (14:52)
--- NOTE | 2019-06-16 17:07 | PSYCHOLOGICAL NOTE ---
<MAICOL NIELSEN - Last Filed: 06/16/19 17:06> Psych Note - Psych Note Date seen by psych provider: 06/16/19 Psych Note: Reason for Consult:Intentional Overdose Please no visitors or phone calls for this patient No change in status. Clinician attempted contacted to both patient's parents and ; left voicemail for , was unable to leave voicemail for parents. Psychiatric mediations were altered without psychiatric input which has resulted in [place] toxicity and an increase in QT intervals; as such consulting psychiatrist recommends the following medication regiment going forward: Clonidine to 0.2 mg 24 hr transdermal patch Cogentin to 1mg daily Thorazine to 100mg twice daily Depakene to 500 mg twice daily When lithium is below therapeutic range- Start Buspar 10mg Twice daily Risperidone 0.5mg every 8 hours as needed for aggression Impression\\plan: Patient is recommended for continued of IVC. Placement continues to be sought; unfortunately, it has been still been unsuccessful. Dr. Caicedo was consulted to care management of this patient; attending physicians in agreement with recommendations and disposition. <DOROTEO CAICEDO - Last Filed: 06/16/19 23:40> Psych Note - Psych Note Time seen by psych provider: 12:50 Psych Note: Met with Patient to evaluate for continued IVC status. Patient was irritable and initially stated he had not taken any of his psychiatric medications. However, review of patient's chart revealed he was given his medications as prescribed in the morning. While meeting with patient he asked what he needed to do to get to another facility or to go home. He was advised that every effort was being made to transfer him to another facility but each time he made a choice to engage in maladaptive behaviors (i.e. eloping, attempting to hurt nurses, etc.), or each time he went into restraints for trying to kill himself, the clock started over for outside facilities to look at accepting him (must be out of restraints for at least 24 hours), or for consideration for discharge. Patient stated "we'll see." Again, when advised he could control his behavior better than he was choosing to do so, Patient became very irritable and upset and refused to cooperate with evaluation any further. Given Patient's reaction, comment, and ongoing irritability, IVC continues to be recommended. It is felt that patient maintains better control of his behavior than he demonstrates and engages in maladaptive behavior as attention seeking and manipulation. Attending physician in agreement with recommendation and disposition.
[2019-06-16] MEDS: BENZTROPINE MESYLATE 1 MG TABLET PO SCH (21:42)
[2019-06-16] MEDS: IBUPROFEN 800 MG TABLET PO PRN (22:31)
[2019-06-17] MEDS: CHLORPROMAZINE HCL 25 MG TABLET PO SCH ×2 (09:06→17:27)
[2019-06-17] MEDS: NICOTINE 21 MG/24 HR PATCH.TD24 TD SCH (09:06)
[2019-06-17] MEDS: VALPROATE SODIUM SYRUP 250 MG/5 ML UDCUP PO SCH ×2 (09:06→21:30)
[2019-06-17] MEDS: FAMOTIDINE INJ/PF 20 MG/2 ML SDV IV SCH ×2 (09:06→21:30)
[2019-06-17] MEDS: IBUPROFEN 800 MG TABLET PO PRN (09:06)
[2019-06-17] MEDS: POTASSIUM CHLORIDE 10 MEQ TABLET.ER PO SCH (09:06)
--- NOTE | 2019-06-17 14:22 | PDOC PROGRESS REPORT ---
Subjective Progress Note for:: 06/17/19 Reason For Visit: DIPHENHYDRAMINE OVERDOSE 06/17/2019 She admitted for Benadryl overdose and psychiatric disorder Physical Exam Vital Signs: Temp Pulse Resp BP Pulse Ox 98.1 F 88 14 112/76 100 06/17/19 12:39 06/17/19 12:39 06/17/19 12:39 06/17/19 12:39 06/17/19 12:39 Intake & Output 06/16/19 06/17/19 06/18/19 06:59 06:59 06:59 Intake Total 1062 891 Output Total 200 0 Balance 862 891 Weight 59.1 kg 56.5 kg Results Laboratory Results: 06/14/19 08:07 06/14/19 08:07 05/26/19 05/26/19 05/26/19 14:34 14:34 20:00 Creatine Kinase 547 H 430 H CK-MB (CK-2) 2.55 Troponin I < 0.012 05/26/19 05/27/19 05/27/19 20:00 01:48 01:48 Creatine Kinase 308 H CK-MB (CK-2) 2.35 1.69 Troponin I < 0.012 < 0.012 Impressions: Chest X-Ray 05/26/19 00:00 IMPRESSION: NO ACUTE RADIOGRAPHIC FINDING IN THE CHEST. Head CT 06/08/19 09:00 IMPRESSION: NORMAL BRAIN CT WITHOUT CONTRAST. EVIDENCE OF ACUTE STROKE: NO. Assessment and Plan - Diagnosis (1) Acute metabolic encephalopathy Is this a current diagnosis for this admission?: Yes (2) Agitation Is this a current diagnosis for this admission?: Yes (3) Hallucinations Is this a current diagnosis for this admission?: Yes (4) Intentional diphenhydramine overdose Qualifiers: Encounter type: initial encounter Qualified Code(s): T45.0X2A - Poisoning by antiallergic and antiemetic drugs, intentional self-harm, initial encounter Is this a current diagnosis for this admission?: Yes (5) [place] toxicity Is this a current diagnosis for this admission?: Yes (6) Overdose Qualifiers: Encounter type: initial encounter Injury intent: intentional self-harm Qualified Code(s): T50.902A - Poisoning by unspecified drugs, medicaments and biological substances, intentional self-harm, initial encounter Is this a current diagnosis for this admission?: Yes (7) Severe major depression with psychotic features Is this a current diagnosis for this admission?: Yes (8) Suicidal ideations Is this a current diagnosis for this admission?: Yes - Plan Summary Summary: 34-year-old male with intentional diphenhydramine overdose. He exhibited hallu cinations and agitated behavior likely related to the overdose. There was felt to be a self-induced choking episode but trying to swallow a role hold. Second episode of similar behavior with eating was observed by nursing. He is currently on full liquid diet. Consider advancing to soft mechanical with ground meats. He is currently stable on his present medical regimen. He is medically cleared and there are no medical contraindications to inpatient psychiatric facility placement. The hypokalemia is likely related to dietary restrictions and will currently use low-dose potassium chloride but will add orange juice or banana daily to his diet and this should adequately compensated. 06/03/2019-medically cleared and stable for inpatient psychiatric placement 06/05/2019-unfortunately placement has been difficult. Reviewer's have focused on an active comorbidities from the patient's past as opposed to focusing on his current medical status. He has a history of supraventricular tachycardia that was successfully ablated. The patient has not exhibited any arrhythmias during his hospitalization. He carries no greater risk of arrhythmia or cardiac complication then anyone else. He has never had any diagnosis of esophageal cancer. 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 He has been able to maintain his weight and eat without difficulty after the Vladimir fundoplication. The patient is medically stable and is very appropriate for inpatient psychiatric care. There is no medical contraindication. He was on subcutaneous heparin for DVT prophylaxis and that has been discontinued as the patient is able to ambulate. 06/06/2019-adjusted medications somewhat. Still waiting for placement. The patient has been very frustrated and upset. Today he was upset with me and his nurse because we reinforced the no visitor policy as well as explained to him that his IVC was still in place. 06/16/2019 Patient is currently waiting on IVC placement he appears to be hemodynamically stable. Yesterday lithium level was 1.8 today it is 1.3. Just slightly high Patient could go to psychiatric inpatient facility as soon as bed is available I have made most of the medication changes as recommended by psychiatry the exception of not starting the BuSpar yet I have ordered risperdol as a prn 06/17/2019 Vital signs are stable 98.1, pulse 88, blood pressure 112/76, O2 sat 100% on room air According to the nurses last night patient was wandering the halls and went down into another patient's room I have started the BuSpar today 10 mg twice daily I agree with psychiatry patient still needs to be an IVC, and is not mentally stable to be discharge into the general population. Patient does not understand his current situation. - Time Time Spent with patient: 15-24 minutes
[2019-06-17] MEDS ORDERED: LORAZEPAM INJ 2 MG/1 ML VIAL ONE (14:45)
[2019-06-17] MEDS: RISPERIDONE 0.25 MG TABLET PO SCH (17:27)
[2019-06-17] MEDS: BUSPIRONE HCL 10 MG TABLET PO SCH ×2 (17:27→21:30)
[2019-06-17] MEDS: BENZTROPINE MESYLATE 1 MG TABLET PO SCH (21:30)
[2019-06-18] MEDS: RISPERIDONE 0.25 MG TABLET PO SCH ×2 (05:24→17:15)
[2019-06-18] MEDS: FAMOTIDINE INJ/PF 20 MG/2 ML SDV IV SCH ×2 (09:22→22:50)
[2019-06-18] MEDS: POTASSIUM CHLORIDE 10 MEQ TABLET.ER PO SCH (09:22)
[2019-06-18] MEDS: BUSPIRONE HCL 10 MG TABLET PO SCH ×2 (09:22→22:51)
[2019-06-18] MEDS: VALPROATE SODIUM SYRUP 250 MG/5 ML UDCUP PO SCH ×2 (09:22→22:51)
[2019-06-18] MEDS: NICOTINE 21 MG/24 HR PATCH.TD24 TD SCH (09:22)
[2019-06-18] MEDS: CHLORPROMAZINE HCL 25 MG TABLET PO SCH ×2 (09:23→17:15)
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
[2019-06-18 20:12] LABS: ABSOLUTE EOSINOPHILS # (AUTO) 0.2 10^3/uL (0.0-0.6); ABSOLUTE MONOCYTES (AUTO) 0.7 10^3/uL (0.1-1.4); ABSOLUTE NEUT (AUTO) 6.1 10^3/uL (1.7-8.2); BASOPHILS % (AUTO) 0.5 % (0-2); EOSINOPHILS % (AUTO) 2.4 % (0-6); HEMATOCRIT 37.2 % (37.9-51.0); HEMOGLOBIN 13.1 g/dL (13.5-17.0); MEAN CORPUSCULAR HEMOGLOBIN 31.2 pg (27.0-33.4); MEAN CORPUSCULAR HGB CONC 35.1 g/dL (32.0-36.0); MEAN CORPUSCULAR VOLUME 89 fl (80-97); MONOCYTES % (AUTO) 9.1 % (3-13); PLATELET COUNT 263 10^3/uL (150-450); RED BLOOD COUNT 4.19 10^6/uL (4.35-5.55); RED CELL DISTRIBUTION WIDTH 13.5 % (11.5-14.0); TOTAL CELLS COUNTED % (AUTO) 100 %; WHITE BLOOD COUNT 8.1 10^3/uL (4.0-10.5)
[2019-06-18 20:35] LABS: ALBUMIN 3.9 g/dL (3.5-5.0); ALKALINE PHOSPHATASE 62 U/L (38-126); ANION GAP 13 (5-19); ASPARTATE AMINO TRANSFERASE 16 U/L (17-59); BILIRUBIN,DIRECT 0.3 mg/dL (0.0-0.4); BILIRUBIN,TOTAL 0.4 mg/dL (0.2-1.3); BLOOD UREA NITROGEN 14 mg/dL (7-20); CALCIUM 9.6 mg/dL (8.4-10.2); CARBON DIOXIDE 25 mmol/L (22-30); CHLORIDE 101 mmol/L (98-107); GLUCOSE 99 mg/dL (75-110); POTASSIUM 4.2 mmol/L (3.6-5.0); TOTAL PROTEIN 7.2 g/dL (6.3-8.2)
--- NOTE | 2019-06-18 21:18 | PSYCHOLOGICAL NOTE ---
<ENDER LENTZ - Last Filed: 06/18/19 21:16> Psych Note - Psych Note Date seen by psych provider: 06/18/19 Time seen by psych provider: 17:00 Psych Note: Reason for Consult:Intentional Overdose Please no visitors or phone calls for this patient No change in status. Clinician contacted patient's mother and patient's spouse. Both parties agreed to take part in team meeting tomorrow. Psychiatric mediations were altered without psychiatric input which has resulted in [place] toxicity and an increase in QT intervals; as such consulting psychiatrist recommends the following medication regiment going forward: Continue Clonidine to 0.2 mg 24 hr transdermal patch Continue Cogentin to 1mg daily Decrease Thorazine to 50mg twice daily Continue Depakene to 500 mg twice daily When lithium is below therapeutic range- Start Buspar 10mg Twice daily Discontinue Risperidone 0.5mg every 8 hours as needed for aggression Clinician contacted Dr. Palacios and made him aware of medication adjustment. Impression\plan: Patient is recommended for continued of IVC. Placement continues to be sought; unfortunately, it has been still been unsuccessful. Dr. Caicedo was consulted to care management of this patient; attending physicians in agreement with recommendations and disposition. <DOROTEO CAICEDO - Last Filed: 06/19/19 10:49> Psych Note - Psych Note Psych Note: Review of current medications indicate the attending physician has followed the psychiatrist recommendation for medication changes on 06.18.2019.
[2019-06-18] MEDS: BENZTROPINE MESYLATE 1 MG TABLET PO SCH (22:51)
[2019-06-19] MEDS ORDERED: LACTATED RINGERS IV ONE (05:30)
[2019-06-19] MEDS ORDERED: DEXTROSE 5% IV ONE (05:30)
[2019-06-19] MEDS: VALPROATE SODIUM SYRUP 250 MG/5 ML UDCUP PO SCH ×2 (09:15→21:09)
[2019-06-19] MEDS: FAMOTIDINE INJ/PF 20 MG/2 ML SDV IV SCH ×2 (09:15→21:09)
[2019-06-19] MEDS: NICOTINE 21 MG/24 HR PATCH.TD24 TD SCH (09:15)
[2019-06-19] MEDS: BUSPIRONE HCL 10 MG TABLET PO SCH ×2 (09:15→21:11)
[2019-06-19] MEDS: POTASSIUM CHLORIDE 10 MEQ TABLET.ER PO SCH (09:15)
[2019-06-19] MEDS: CHLORPROMAZINE HCL 25 MG TABLET PO SCH ×2 (09:23→17:56)
[2019-06-19] MEDS: CHLORPROMAZINE HCL INJ 25 MG/1 ML AMPULE IV PRN (11:18)
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
[2019-06-19] MEDS ORDERED: CHLORPROMAZINE HCL INJ 25 MG/1 ML AMPULE IV ONE (14:30)
[2019-06-19] MEDS ORDERED: CHLORPROMAZINE HCL INJ 25 MG/1 ML AMPULE IV SCH (18:00)
[2019-06-19] MEDS: BENZTROPINE MESYLATE 1 MG TABLET PO SCH (21:11)
[2019-06-20] MEDS: CHLORPROMAZINE HCL INJ 25 MG/1 ML AMPULE IV PRN (08:21)
[2019-06-20] MEDS: POTASSIUM CHLORIDE 10 MEQ TABLET.ER PO SCH (09:18)
[2019-06-20] MEDS: BUSPIRONE HCL 10 MG TABLET PO SCH ×2 (09:18→21:11)
[2019-06-20] MEDS: FAMOTIDINE INJ/PF 20 MG/2 ML SDV IV SCH ×2 (09:18→21:12)
[2019-06-20] MEDS: NICOTINE 21 MG/24 HR PATCH.TD24 TD SCH (09:18)
[2019-06-20] MEDS: VALPROATE SODIUM SYRUP 250 MG/5 ML UDCUP PO SCH ×2 (09:20→21:12)
[2019-06-20] MEDS: CHLORPROMAZINE HCL 25 MG TABLET PO SCH (09:21)
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
[2019-06-20] MEDS ORDERED: LORAZEPAM INJ 2 MG/1 ML VIAL IV PRN (13:28)
--- NOTE | 2019-06-20 16:28 | PSYCHOLOGICAL NOTE ---
Psych Note - Psych Note Date seen by psych provider: 06/19/19 Psych Note: Patient is currently in 4 pt restraints and unable to engage in evaluations. Patient is demonstrating probable delirium. Behavioral health team participated in a multidisciplinary team meeting to address patient's ongoing treatment. Other team members present included medical, nursing, risk-management, discharge planning, and patient advocacy; patient's mother and joined via phone conference with behavioral health team, patient advocate, and patient navigator. Due to concerns with ongoing unsuccessful placement attempts, a change in clinical approach is agreed upon. Originally it was thought patient's dog was a therapy or emotional support dog and would be able to join the patient; however, patient's discloses dog is not certified. There is concern that the patient had been training the dog with [place] commands and it is unknown at this time if the staff need to physically intervene for patient's safety how the dog would react or if the patient would attempt to use the dog to protect himself. If the patient's dog visits it would be in the context of any other patient animal visit i.e. 1 hour length with family or friend must assume responsibility for the pet during the visit. It is agreed medication adjustments will be conducted to better address patient's symptoms in an effort to control behavioral outbursts. Family visits will be attempted hopefully next Saturday06/24/2021 increase patient's contact with support system with the hope that family can assist in redirecting the patient's behavioral outbursts. Staff will start to integrate a type of environmental therapy such as walking the halls; security will need to be present due to his history of elopement attempts.
--- NOTE | 2019-06-20 17:15 | PSYCHOLOGICAL NOTE ---
Psych Note - Psych Note Date seen by psych provider: 06/20/19 Time seen by psych provider: 16:00 Psych Note: Reason for Consult:Intentional Overdose Please no visitors or phone calls for this patient Patient was able to briefly engage with clinician to discuss decrease of medications and clinical plan going forward. Patient did quickly deteriorate and demonstrated signs of responding to internal stimuli. Patient asked to speak to the gentleman behind clinician; patient and clinician were alone in the room. Clinician contacted patient's parents and discussed plan of care update and decreased medications Clinician contacted patient's and discussed plan of care update and decreased medications updated medication recommendations per [facility]'s contracted psychiatrist Dr. Marycarmen KEMP as follows Please discontinue Thorazine both PRN and scheduled Decrease Depakote to 125 mg twice daily Please decrease BuSpar to 5 mg twice daily Continue to avoid clonidine if medically appropriate Add Ativan 0.5 mg every 6 hours PRN; please note there is concern with the patient having difficulties with medications and it is requested that PRN medication is used as a last resort. Please use redirection and de-escalation techniques. Impression\plan: Patient is recommended for continued of IVC. Placement continues to be sought; unfortunately, it has been still been unsuccessful. Updated medication recommendations have been provided. Dr. Caicedo was consulted to care management of this patient; attending physicians in agreement with recommendations and disposition.
[2019-06-20] MEDS: BENZTROPINE MESYLATE 1 MG TABLET PO SCH (21:10)
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
[2019-06-21] MEDS: VALPROATE SODIUM SYRUP 250 MG/5 ML UDCUP PO SCH ×2 (10:49→21:14)
[2019-06-21] MEDS: POTASSIUM CHLORIDE 10 MEQ TABLET.ER PO SCH (10:50)
[2019-06-21] MEDS: BUSPIRONE HCL 10 MG TABLET PO SCH ×2 (10:50→21:14)
[2019-06-21] MEDS: FAMOTIDINE INJ/PF 20 MG/2 ML SDV IV SCH ×2 (10:50→21:14)
[2019-06-21] MEDS: NICOTINE 21 MG/24 HR PATCH.TD24 TD SCH (10:51)
--- NOTE | 2019-06-21 18:06 | PSYCHOLOGICAL NOTE ---
Psych Note - Psych Note Date seen by psych provider: 06/21/19 Time seen by psych provider: 13:30 Psych Note: Reason for Consult:Intentional Overdose Patient's family is head to [place] to visit. Visitation is to start in the morning 06/22/2019 Patient was able to engage with clinician smiles and laughs. Patient is responding to internal stimuli as noted by talking to people not there, grasping things in the air, randomly laughing or talking, and seen doing odd behavior such as thinking he is sewing. Patient is out of restraints and is able to be easily redirected. Patient was able to walk laps in the hallway accompanied by security, patient board certified arts therapist and clinician. Clinician contacted patient's parents and they are currently in route to [place] report they are only about 20 to 25 miles out. They request to be able to visit tonight however clinician requested to maintain previous plan of care agreed upon by all multidisciplinary team and family i.e. visitation starting tomorrow 06/22/2019. Clinician contacted patient's . She reports she is able to come in with the family dog for a 1 hour visit tomorrow. Clinician confirms behavior health team will contact and coordinate time for the visit. updated medication recommendations per [facility]'s contracted psychiatrist Dr. Marycarmen KEMP as follows Depakote to 125 mg twice daily BuSpar to 5 mg twice daily Continue to avoid clonidine if medically appropriate Ativan 0.5 mg every 6 hours PRN; please note there is concern with the patient having difficulties with medications and it is requested that PRN medication is used as a last resort. Please use redirection and de-escalation techniques. Impression\plan: Patient is recommended for continued of IVC. Placement continues to be sought; unfortunately, it has been still been unsuccessful. Patient's family is planing to visit tomorrow to assist the patient in orientation and re-direction. Dr. Caicedo was consulted to care management of this patient; attending physicians in agreement with recommendations and disposition.
[2019-06-21] MEDS: BENZTROPINE MESYLATE 1 MG TABLET PO SCH (21:14)
[2019-06-21] MEDS ORDERED: HALOPERIDOL 5 MG TABLET PO SCH (22:30)
[2019-06-21] MEDS ORDERED: HALOPERIDOL LACTATE INJ 5 MG/1 ML VIAL IV ONE (22:40)
--- NOTE | 2019-06-21 23:09 | Progress Note ---
Provider Note Provider Note: Critical care note: 06/21/2019 Critical care onset time: 21:53 Critical care issue: Agitation and hallucinations I was asked by the patient's nurse to observe and evaluate patient for escalating agitation and decreased ability to be redirected. Patient was evaluated and was noted to be actively hallucinating (auditory) and was also noted to be highly agitated and irritable. He was not overtly violent but he was noted to be aggressive and fortunately responded to the presence of security personnel in order to return to his room. Patient was observed on an ongoing basis for 25 minutes with continued behavior as described above. In discussion with his skilled nursing facility counselor it was learned that he has not slept for 36 hours and that his hallucinations have been present for several days with escalation in frequency and a corresponding increase in his agitation and irritability. Is noted the patient is not currently being treated with any psychotropic agent for his obvious schizophrenia. He is started on Haldol with 5 mg being given IV stat and he will be continued on 5 mg p.o. every 12 hours as his initial dosing with adjustments to be made by his daytime hospitalist or by the psychology/psychiatry consultants. Critical care end time: 22:18 Total critical care time: 25 minutes
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
[2019-06-22] MEDS: BUSPIRONE HCL 10 MG TABLET PO SCH ×2 (09:28→21:45)
[2019-06-22] MEDS: POTASSIUM CHLORIDE 10 MEQ TABLET.ER PO SCH (09:28)
[2019-06-22] MEDS: NICOTINE 21 MG/24 HR PATCH.TD24 TD SCH (09:28)
[2019-06-22] MEDS: FAMOTIDINE INJ/PF 20 MG/2 ML SDV IV SCH ×2 (09:29→21:44)
[2019-06-22] MEDS ORDERED: MELATONIN 3 MG TABLET PO SCH (22:00)
[2019-06-23] MEDS: POTASSIUM CHLORIDE 10 MEQ TABLET.ER PO SCH (09:37)
[2019-06-23] MEDS: NICOTINE 21 MG/24 HR PATCH.TD24 TD SCH (09:46)
[2019-06-23] MEDS: FAMOTIDINE INJ/PF 20 MG/2 ML SDV IV SCH (12:01)
[2019-06-23 16:59] VITALS: BP 108/60
--- NOTE | 2019-06-23 20:34 | PSYCHOLOGICAL NOTE ---
Psych Note - Psych Note Date seen by psych provider: 06/23/19 Time seen by psych provider: 15:50 Psych Note: Check and conducted with patient. Patient's parents remain at bedside. Clinician notes patient laughing, smiling, aging appropriately with clinician, and expressing remorse for past behaviors. Patient spoke of "the meds speaking." Patient and parents discussed patient staying with parents for a few days after discharge, and then living in the fifth wheel on property in [place]. Patient spoke of upcoming divorce. Clinician notes no signs of emotional distress. Patient spoke of "getting my life together." Patient stated his focus was seeing his son. Patient denied SI and HI. Patient reports he has no memory of most events during his hospital stay thus far. Patient's father reports patient can become "violent" after anesthesia." Clinician and Dr. Caicedo met with patient and family. Focus of discussion was providing patient with brief synopsis of events that occurred during his hospital stay thus far and the need for a medical alert bracelet indicating possible violent behaviors after medications as a result of a sensitivity to certain medications, especially medications with "mind altering properties." Dr. Caicedo discussed possible discharge today, however will need to consult with Dr. Palacios, patient's medical provider. Impression/plan: Patient is recommended for rescind of IVC and is cleared from acute psychiatric services.
[2019-06-24] MEDS ORDERED: NICOTINE 14 MG/24 HR PATCH.TD24 TD SCH (10:00)
--- NOTE | 2019-06-28 17:13 | PDOC DISCHARGE SUMMARY ---
Impression - Admit/DC Date/PCP Admission Date/Primary Care Provider: 05/24/19 16:[facility] Discharge Date: 06/23/19 - Additional Information Resuscitation Status: Full Code Discharge Diet: As Tolerated, Regular Discharge Activity: Activity As Tolerated, Balance Activity w/Rest Ref[facility] [Primary [facility]] - Follow up as needed Home Medications: Acetaminophen [Tylenol 325 mg Tablet] 650 mg PO Q4HP PRN tablet 06/23/19 History of Present Illiness History of Present Illness: Per H&P by Dr. Ryan: ABDULAZIZ GAMBOA is a 34 year old male who presented to ED after intentional diphenhydramine overdose. As per ED physician's note patient been having having relational problems with his who around 1:15 supposedly took an unknown quantity of 25 mg tablets of Benadryl. Patient states he was recently purchased bottle. He believes he had around 90 tablets in the bottle. Patient takes it only for sleep at night. There were 2 tablets left by EMS. EMS provided activated charcoal. He was having some visual hallucinations. Patient denies any pain at this time. He states he was very upset and attempted to kill himself. History as recorded medically. Patient states he last drank alcohol 2 weeks ago. On my encounter no family at the bedside, patient is awake, alert, but unfortunately only oriented to self, does not follow three-step command, attention span is very short appears to be responding to internal stimuli but when asked he denies having any visual or auditory hallucinations. Hospital Course Hospital Course: (1) Severe major depression with psychotic features Patient was slowly weaned off of all medications. As medications were decreased/discontinued, his mentation improved with resolution of psychotic features. Mental Health services were consulted and patient remained under IVC status throughout his admission. They have established a safe discharge plan with the patient's family and have rescinded the IVC. They advised against medication at discharge; recommend patient follow-up with his established mental health provider. (2) Agitation Resolved. (3) Hallucinations Resolved. He exhibited hallucinations and agitated behavior likely related to the benadryl overdose. (4) Intentional diphenhydramine overdose Effects of initial OD have subsided (5) [place] toxicity Resolved. (6) Somnolence Significantly improved. In part due to medication reactions, cyclic agitation, and hospital environment. (7) Suicidal ideations No further occurrences of suicidal ideation. Cleared by mental health services. (8) Hypotension Resolved. (9) Choking episode No further episodes. There was felt to be a self-induced choking episode but trying to swallow a roll hold. Second episode of similar behavior with eating was observed by nursing. Patient was placed on a full liquid diet for safety; advanced slowly as mentation/agitation/suicidal ideation improved. Patient does have some underlying dysphasia related to Vladimir fundoplication years ago for reflux with Borja's esophagus (10) Acute metabolic encephalopathy Resolved. Physical Exam Vital Signs: Temp Pulse Resp BP Pulse Ox 98.8 F 96 18 108/60 100 06/23/19 16:56 06/23/19 16:56 06/23/19 16:56 06/23/19 16:56 06/23/19 16:56 General appearance: PRESENT: no acute distress, cooperative, well-developed, well-nourished Head exam: PRESENT: atraumatic, normocephalic Eye exam: PRESENT: conjunctiva pink, EOMI, PERRLA. ABSENT: scleral icterus Mouth exam: PRESENT: moist, tongue midline Respiratory exam: PRESENT: clear to auscultation jin, symmetrical, unlabored. ABSENT: rales, rhonchi, wheezes Cardiovascular exam: PRESENT: RRR, +S1, +S2. ABSENT: diastolic murmur, rubs, systolic murmur Vascular exam: PRESENT: normal capillary refill Extremities exam: PRESENT: full ROM. ABSENT: calf tenderness, clubbing, pedal edema Musculoskeletal exam: PRESENT: ambulatory Neurological exam: PRESENT: alert, awake, oriented to person, oriented to place, oriented to time, oriented to situation, CN II-XII grossly intact. ABSENT: motor sensory deficit Psychiatric exam: PRESENT: appropriate affect, normal mood. ABSENT: homicidal ideation, suicidal ideation Skin exam: PRESENT: dry, intact, warm. ABSENT: cyanosis, rash Results Laboratory Results: WBC 8.1 10^3/uL (4.0-10.5) 06/18/19 19:40 RBC 4.19 10^6/uL (4.35-5.55) L 06/18/19 19:40 Hgb 13.1 g/dL (13.5-17.0) L 06/18/19 19:40 Hct 37.2 % (37.9-51.0) L 06/18/19 19:40 MCV 89 fl (80-97) 06/18/19 19:40 MCH 31.2 pg (27.0-33.4) 06/18/19 19:40 MCHC 35.1 g/dL (32.0-36.0) 06/18/19 19:40 RDW 13.5 % (11.5-14.0) 06/18/19 19:40 Plt Count 263 10^3/uL (150-450) 06/18/19 19:40 Lymph % (Auto) 12.0 % (13-45) L 06/18/19 19:40 Thomas % (Auto) 9.1 % (3-13) 06/18/19 19:40 Eos % (Auto) 2.4 % (0-6) 06/18/19 19:40 Baso % (Auto) 0.5 % (0-2) 06/18/19 19:40 Absolute Neuts (auto) 6.1 10^3/uL (1.7-8.2) 06/18/19 19:40 Absolute Lymphs (auto) 1.0 10^3/uL (0.5-4.7) 06/18/19 19:40 Absolute Monos (auto) 0.7 10^3/uL (0.1-1.4) 06/18/19 19:40 Absolute Eos (auto) 0.2 10^3/uL (0.0-0.6) 06/18/19 19:40 Absolute Basos (auto) 0.0 10^3/uL (0.0-0.2) 06/18/19 19:40 Total Counted 100 05/24/19 14:58 Seg Neutrophils % 76.0 % (42-78) 06/18/19 19:40 Seg Neuts % (Manual) 95 % (42-78) H 05/24/19 14:58 Lymphocytes % (Manual) 3 % (13-45) L 05/24/19 14:58 Monocytes % (Manual) 2 % (3-13) L 05/24/19 14:58 Eosinophils % (Manual) 0 % (0-6) 05/24/19 14:58 Basophils % (Manual) 0 % (0-2) 05/24/19 14:58 Abs Neuts (Manual) 20.2 10^3/uL (1.7-8.2) H 05/24/19 14:58 Abs Lymphs (Manual) 0.6 10^3/uL (0.5-4.7) 05/24/19 14:58 Abs Monocytes (Manual) 0.4 10^3/uL (0.1-1.4) 05/24/19 14:58 Absolute Eos (Manual) 0.0 10^3/uL (0.0-0.6) 05/24/19 14:58 Abs Basophils (Manual) 0.0 10^3/uL (0.0-0.2) 05/24/19 14:58 Platelet Comment ADEQUATE 05/24/19 14:58 RBC Morph Comment NORMO-CYTIC/CHROMIC 05/24/19 14:58 Sodium 139.1 mmol/L (137-145) 06/18/19 19:44 Potassium 4.2 mmol/L (3.6-5.0) 06/18/19 19:44 Chloride 101 mmol/L (98-107) 06/18/19 19:44 Carbon Dioxide 25 mmol/L (22-30) 06/18/19 19:44 Anion Gap 13 (5-19) 06/18/19 19:44 BUN 14 mg/dL (7-20) 06/18/19 19:44 Creatinine 1.25 mg/dL (0.52-1.25) 06/18/19 19:44 Est GFR ( Amer) > 60 (>60) 06/18/19 19:44 Est GFR (MDRD) Non-Af > 60 (>60) 06/18/19 19:44 Glucose 99 mg/dL (75-110) 06/18/19 19:44 POC Glucose 144 mg/dL (70-110) H 05/30/19 08:59 Hemoglobin A1c % 5.0 % (4.7-6.0) 05/28/19 07:40 Calcium 9.6 mg/dL (8.4-10.2) 06/18/19 19:44 Magnesium 2.6 mg/dL (1.6-2.3) H 06/18/19 19:44 Total Bilirubin 0.4 mg/dL (0.2-1.3) 06/18/19 19:44 Direct Bilirubin 0.3 mg/dL (0.0-0.4) 06/18/19 19:44 Neonat Total Bilirubin Not Reportable 06/18/19 19:44 Neonat Direct Bilirubin Not Reportable 06/18/19 19:44 Neonat Indirect Bili Not Reportable 06/18/19 19:44 AST 16 U/L (17-59) L 06/18/19 19:44 ALT 14 U/L (<50) 06/18/19 19:44 Alkaline Phosphatase 62 U/L (38-126) 06/18/19 19:44 Creatine Kinase 308 U/L (55-170) H 05/27/19 01:48 CK-MB (CK-2) 1.69 ng/mL (<4.55) 05/27/19 01:48 Troponin I < 0.012 ng/mL 05/27/19 01:48 Total Protein 7.2 g/dL (6.3-8.2) 06/18/19 19:44 Albumin 3.9 g/dL (3.5-5.0) 06/18/19 19:44 TSH 3.50 uIU/mL (0.47-4.68) 06/18/19 19:40 Prolactin 29.2 ng/mL (3.7-17.9) H 06/18/19 19:40 Urine Color YELLOW 06/08/19 08:25 Urine Appearance SLIGHTLY-CLOUDY 06/08/19 08:25 Urine pH 6.0 (5.0-9.0) 06/08/19 08:25 Ur Specific [place] 1.018 06/08/19 08:25 Urine Protein NEGATIVE mg/dL (NEGATIVE) 06/08/19 08:25 Urine Glucose (UA) NEGATIVE mg/dL (NEGATIVE) 06/08/19 08:25 Urine Ketones NEGATIVE mg/dL (NEGATIVE) 06/08/19 08:25 Urine Blood NEGATIVE (NEGATIVE) 06/08/19 08:25 Urine Nitrite NEGATIVE (NEGATIVE) 06/08/19 08:25 Urine Bilirubin NEGATIVE (NEGATIVE) 06/08/19 08:25 Urine Urobilinogen NEGATIVE mg/dL (<2.0) 06/08/19 08:25 Ur Leukocyte Esterase NEGATIVE (NEGATIVE) 06/08/19 08:25 Urine WBC (Auto) 8 /HPF 06/08/19 08:25 Urine RBC (Auto) 0 /HPF 06/08/19 08:25 Urine Bacteria (Auto) TRACE /HPF 06/08/19 08:25 Squamous Epi Cells Auto <1 /HPF 06/08/19 08:25 Urine Mucus (Auto) FEW /LPF 06/08/19 08:25 Urine Ascorbic Acid NEGATIVE (NEGATIVE) 06/08/19 08:25 Salicylates < 1.0 mg/dL (2.0-20.0) L 05/24/19 14:58 Urine Opiates Screen NEGATIVE 05/24/19 18:13 Urine Methadone Screen NEGATIVE 05/24/19 18:13 Acetaminophen < 10 ug/mL (10-30) L 05/24/19 17:05 Ur Barbiturates Screen NEGATIVE 05/24/19 18:13 Valproic Acid 119.5 ug/mL (50.0-120.0) 06/18/19 19:44 Ur Phencyclidine Scrn NEGATIVE 05/24/19 18:13 Ur Amphetamines Screen NEGATIVE 05/24/19 18:13 U Benzodiazepines Scrn NEGATIVE 05/24/19 18:13 [place] 1.3 mEq/L (0.6-1.2) H 06/16/19 09:53 Urine Cocaine Screen NEGATIVE 05/24/19 18:13 U Marijuana (THC) Screen NEGATIVE 05/24/19 18:13 Serum Alcohol < 10 mg/dL (NONE DETECTED) 05/24/19 14:58 05/26/19 05/26/19 05/27/19 14:34 20:00 01:48 CK-MB (CK-2) 2.55 2.35 1.69 Troponin I < 0.012 < 0.012 < 0.012 Impressions: Chest X-Ray 05/26/19 00:00 IMPRESSION: NO ACUTE RADIOGRAPHIC FINDING IN THE CHEST. Head CT 06/08/19 09:00 IMPRESSION: NORMAL BRAIN CT WITHOUT CONTRAST. EVIDENCE OF ACUTE STROKE: NO. Plan Plan of Treatment: The patient is discharged to home in the care of family members. He is advised to follow-up with his primary care provider within 1 week. He is instructed to follow-up with his established mental health provider at the earliest available appointment. He is advised to take medications only as prescribed. Do not drink alcohol. Return to the emergency department as needed for concerning symptoms. Time Spent: Greater than 30 Minutes Stroke Is this a Stroke Patient?: No Acute Heart Failure - Is this a Heart Failure Patient?: No
== END 2019-06-23 18:01 | disposition home or self-care (01) | DRG 917 ==
LOC: ER 14:46 → EH 16:27 → 3W 17:58
PROVIDERS: ADMIT Internal Medicine; ATTEND Hospitalist
DX: T45.0X2A Poisoning by antiallergic and antiemetic drugs, intentional self-harm, initial encounter (principal); G92 Toxic encephalopathy; G93.1 Anoxic brain damage, not elsewhere classified; F32.3 Major depressive disorder, single episode, severe with psychotic features; Y92.9 Unspecified place or not applicable; I25.10 Atherosclerotic heart disease of native coronary artery without angina pectoris; K21.9 Gastro-esophageal reflux disease without esophagitis; F43.10 Post-traumatic stress disorder, unspecified; T17.228A Food in pharynx causing other injury, initial encounter; X83.8XXA Intentional self-harm by other specified means, initial encounter; K22.70 Barrett's esophagus without dysplasia; I95.2 Hypotension due to drugs; T43.595A Adverse effect of other antipsychotics and neuroleptics, initial encounter; E87.6 Hypokalemia; R40.0 Somnolence; I25.2 Old myocardial infarction; Z88.0 Allergy status to penicillin; Z88.8 Allergy status to other drugs, medicaments and biological substances; Z88.6 Allergy status to analgesic agent; Z88.1 Allergy status to other antibiotic agents; Z88.3 Allergy status to other anti-infective agents; Z91.041 Radiographic dye allergy status; Z78.1 Physical restraint status; Z63.5 Disruption of family by separation and divorce
CPT/HCPCS: 36415; 70450; 71045; 80048; 80053; 80164; 80178; 80307; 81001; 82550; 82553; 82962; 83036; 83735; 84146; 84443; 84484; 85025; 93005; 93010; 96374; 99291; J1630; J1644; J2060; J2405; J3230; J3360; J3480; J3486; J3490; J7030; J7042; J7060; J7121; S0028